=== PATIENT | female | born 1975 | race African-American/Black ===

== ENCOUNTER 2017-09-05 12:06 | Emergency (ER) | payer MEDICARE, MEDICAID ==
[2017-09-05] MEDS ORDERED: Ketorolac Tromethamine 30 MG/ML VIAL ONE (12:59)
[2017-09-05] MEDS ORDERED: diphenhydrAMINE HCl 50 MG/ML 1 ML VIAL ONE (12:59)
[2017-09-05] MEDS ORDERED: methylPREDNISolone Sod Succ/PF 125 MG/2 ML VIAL ONE (13:48)
[2017-09-05] MEDS ORDERED: Magnesium Sulfate 2 GM/100 ML BAG ONE (13:50)
[2017-09-05] MEDS ORDERED: Water For Inject, Bacteriostat 30 ML ONE (13:50)
[2017-09-05] MEDS ORDERED: Acetaminophen 500 MG TAB ONE (16:00)
[2017-09-05] MEDS ORDERED: SODIUM CHLORIDE 0.9% IVPB SCH (16:15)
[2017-09-05] MEDS ORDERED: VALPROATE SODIUM IVPB SCH (16:15)
== END 2017-09-05 18:19 | disposition home or self-care (01) ==
LOC: ERS 12:06
DX: R51 Headache (principal); B20 Human immunodeficiency virus [HIV] disease; F41.9 Anxiety disorder, unspecified; F31.9 Bipolar disorder, unspecified; F17.210 Nicotine dependence, cigarettes, uncomplicated
CPT/HCPCS: 96365; 96367; 96375; J1200; J1885; J2930; J3475; J7050

== ENCOUNTER 2017-09-10 13:33 | Emergency (ER) | payer MEDICAID, MEDICARE ==
[2017-09-10] MEDS ORDERED: Lidocaine 2% Viscous Solution 10 ML, Aluminum & Magnesium Hydroxide 30 ML SSW SCH ×2 (14:30)
[2017-09-10 14:46] LABS: Bilirubin Negative (Negative); Blood, Urine Large (Negative); Glucose, Urine (Dipstick) 250 mg/dL (Negative); Ketone, Urine Trace mg/dL (Negative); Nitrite Negative (Negative); Protein, Urine (Dipstick) Trace mg/dL (Neg-Trace)
[2017-09-10 14:48] LABS: Bacteria/HPF None Seen HPF (None Seen); Hyaline Casts/LPF 0-3 HYALINE CAST LPF (0-3 Hyaline)
[2017-09-10] MEDS ORDERED: Lidocaine Viscous Sol 2% 15 ml UD Cup ONE (14:54)
[2017-09-10] MEDS ORDERED: Mag-Al 1200 mg/1200 mg/30 ML UDCUP ONE (14:54)
[2017-09-10] MEDS ORDERED: Famotidine/PF 20 mg/2ml Vial ONE (14:54)
[2017-09-10 14:58] LABS: #Lymphocytes 1.8 thou/uL (1.20-3.40); #Monocytes 0.3 thou/uL (0.11-0.59); #Neutrophils 2.4 thou/uL (1.40-6.50); %Basophils 0.3 % (0.0-1.0); %Monocytes 6.3 % (0.0-10.0); Hematocrit 38.5 % (36.0-47.0); Mean Platelet Volume 7.2 fL (7.4-10.4); Red Blood Cell (RBC) Count 4.26 mill/uL (4.20-5.40); White Blood Cell (WBC) Count 4.5 thou/uL (4.8-10.8)
[2017-09-10 15:03] LABS: Trichomonas/HPF 1+ HPF (None Seen); Yeast-All Forms None Seen HPF (None Seen)
[2017-09-10 15:22] LABS: ALT (SGPT) 10 U/L (8-55); AST (SGOT) 18 U/L (5-34); Alkaline Phosphatase 72 U/L (40-150); Anion Gap 13 mmol/L (10-20); BUN (Urea Nitrogen) 9 mg/dL (7.0-18.7); Bilirubin, Total 0.3 mg/dL (0.2-1.2); Calc. Creatinine Clearance 0 mL/min (70-130); Calcium 9.3 mg/dL (7.8-10.44); Carbon Dioxide 22 mmol/L (22-29); Chloride 106 mmol/L (98-107); Estimated GFR-MDRD Greater than 90; Globulin 3.4 g/dL (2.4-3.5); Protein, Total 7.4 g/dL (6.0-8.3)
[2017-09-10 15:23] LABS: Troponin I Less than 0.010 ng/mL (< 0.028)
== END 2017-09-10 16:18 | disposition home or self-care (01) ==
LOC: ERS 13:33
DX: N72 Inflammatory disease of cervix uteri (principal); B20 Human immunodeficiency virus [HIV] disease; F41.9 Anxiety disorder, unspecified; F31.9 Bipolar disorder, unspecified; F17.210 Nicotine dependence, cigarettes, uncomplicated
CPT/HCPCS: 80053; 81003; 81015; 82553; 84484; 84702; 85025; 87077; 87086; 87480; 87491; 87510; 87591; 87660; 93005; 96361; 96374; S0028

== ENCOUNTER 2018-01-31 14:23 | Emergency (ER) | payer MEDICARE, MEDICAID ==
[2018-01-31] MEDS ORDERED: Acetaminophen 500 MG TAB ONE (15:59)
[2018-01-31] MEDS ORDERED: Ketorolac Tromethamine 30 MG/ML VIAL ONE (15:59)
[2018-01-31] MEDS ORDERED: diphenhydrAMINE 50 MG/ML VIAL ONE (15:59)
[2018-01-31] MEDS ORDERED: Magnesium Sulfate 2 GM/100 ML BAG ONE (17:23)
[2018-01-31] MEDS ORDERED: Ondansetron HCl/PF 4 MG/2 ML Vial ONE (17:27)
== END 2018-01-31 17:27 | disposition home or self-care (01) ==
LOC: ERS 14:23
DX: R51 Headache (principal); B20 Human immunodeficiency virus [HIV] disease; F41.9 Anxiety disorder, unspecified; F31.9 Bipolar disorder, unspecified; F17.210 Nicotine dependence, cigarettes, uncomplicated; Z79.899 Other long term (current) drug therapy
CPT/HCPCS: 96361; 96365; 96375; J1200; J1885; J2405; J3475

== ENCOUNTER → 2018-05-09 | Day surgery (SDC) | payer MEDICARE, MEDICAID ==
[2018-05-08 09:06] VITALS: BMI 18.8
[~2018-05-09] MED LIST: Dexamethasone 20 MG/5 ML VIAL ONE; Fentanyl 100 MCG/2 ML VIAL ONE; Lidocaine 1% PF 5 ML VIAL ONE; Lidocaine 1% w/Epinephrine 1:100K 30 ML VIAL ONE; Ondansetron HCl/PF 4 MG/2 ML Vial ONE; PROPOFOL 200 MG/20 ML VIAL ONE
--- NOTE | 2018-05-10 09:17 | OP ---
PREOPERATIVE DIAGNOSIS: Multiple inflammatory skin lesions. POSTOPERATIVE DIAGNOSES: Multiple inflammatory facial skin lesions and human immunodeficiency virus disease. PROCEDURES PERFORMED: 1. Excision of mid forehead lesion measuring 3.5 cm with complex closure. 2. Excision of right cheek lesion measuring 3.5 cm with complex closure. 3. Excision of left cheek lesion measuring 4.2 cm with complex closure. PROCEDURE IN DETAIL: Each lesion was delineated in an elliptical fashion along the natural skin crea se with margins to include the lesion. The incisions were made for each lesion with a #15 blad e through the skin and subcutaneous tissues with care not to enter beyond the parotid fascia or the s ubcutaneous region. They were then dissected sharply with bipolars used for hemostasis. We then und ermined the skin inferiorly and superiorly for each lesion and created flaps, which were advanced int o the defect. A 5-0 Monocryl was used to reapproximate the dermis to take tension off the skin and 6 -0 Prolene was used in an interrupted fashion to close the skin. Steri-Strips were then placed over adhesive as the wounds were closed. The patient was awakened, extubated, and taken to recovery room where she remained in stable condition prior to discharge home. Specimens were sent for permanent hi stologic evaluation.
== END ==
LOC: SDC 09:59
PROVIDERS: ATTEND Specialist
PROC: 0HB1XZZ Excision of Face Skin, External Approach (ICD-10-PCS; principal; 2018-05-09)
DX: L72.0 Epidermal cyst (principal); L85.9 Epidermal thickening, unspecified; F17.210 Nicotine dependence, cigarettes, uncomplicated; Z21 Asymptomatic human immunodeficiency virus [HIV] infection status; Z79.899 Other long term (current) drug therapy; Z88.5 Allergy status to narcotic agent; Z88.8 Allergy status to other drugs, medicaments and biological substances
CPT/HCPCS: 85014; 88305; J1100; J2001; J2405; J2704; J3010

== ENCOUNTER 2018-07-04 16:20 | Emergency (ER) | payer MEDICARE, MEDICAID ==
--- NOTE | 2018-07-04 16:53 | RAD ---
RADIOGRAPH CHEST 2 VIEWS: 07/04/18 HISTORY: 42-year-old female with cough and chest congestion. FINDINGS: There is no air space density, pulmonary edema, pleural effusion, pneumothorax, or cardiomegaly. IMPRESSION: No acute cardiopulmonary findings. redd [] POS: FERNANDO
== END 2018-07-04 17:49 | disposition home or self-care (01) ==
LOC: ERS 16:20
DX: J40 Bronchitis, not specified as acute or chronic (principal); B20 Human immunodeficiency virus [HIV] disease; F17.210 Nicotine dependence, cigarettes, uncomplicated; Z79.899 Other long term (current) drug therapy
CPT/HCPCS: 71046

== ENCOUNTER 2019-08-25 19:26 | Inpatient (IN) | payer MEDICARE, MEDICAID ==
[~2019-08-25 19:26] MED LIST changes: -Dexamethasone 20 MG/5 ML VIAL ONE; -Fentanyl 100 MCG/2 ML VIAL ONE; +ISOVUE-370 76%-LOCM 1 ML ONE; -Lidocaine 1% PF 5 ML VIAL ONE; -Lidocaine 1% w/Epinephrine 1:100K 30 ML VIAL ONE; -Ondansetron HCl/PF 4 MG/2 ML Vial ONE; -PROPOFOL 200 MG/20 ML VIAL ONE
[2019-08-25 20:05] LABS: #Lymphocytes 0.9 thou/uL (1.20-3.40); #Monocytes 0.3 thou/uL (0.11-0.59); %Basophils 0.2 % (0.0-1.0); %Eosinophils 0.4 % (0.0-10.0); %Monocytes 6.9 % (0.0-10.0); %Neutrophils 71.6 % (42.0-75.0); Hemoglobin 10.2 g/dL (12.0-16.0); Mean Corpuscular HGB CONC 31.7 g/dL (32.0-36.0); Mean Corpuscular Hemoglobin 21.7 pg (27.0-31.0); Mean Corpuscular Volume 68.3 fL (78.0-98.0); Platelet Count 268 thou/uL (130-400); RBC Distribution Width 16.3 % (11.5-14.5); Red Blood Cell (RBC) Count 4.73 mill/uL (4.20-5.40); White Blood Cell (WBC) Count 4.1 thou/uL (4.8-10.8)
[2019-08-25] MEDS ORDERED: Diazepam 5 MG TAB ONE (20:15)
--- NOTE | 2019-08-25 20:24 | RAD ---
XR Chest 1 View Portable History: Chest pain Comparison: Chest radiograph July 04, 2018 Findings: Mild levoscoliosis lumbar spine. Lungs are without confluent airspace consolidation, pneumo thorax, or effusion. Cardiac silhouette and mediastinal contours are within normal limits. Impression: No acute intrathoracic abnormality.
[2019-08-25 20:27] LABS: Anisocytosis SLIGHT = 6-15 cells (100X) (0-5/hpf); Hypochromia SLIGHT = 6-15 cells (100X) (0-5/hpf); MDiff Complete? YES; Microcytosis SLIGHT = 6-15 cells (100X) (0-5/hpf); Ovalocytes SLIGHT = 2-5 cells (100X) (0-1/hpf); Platelet Morphology Comment Appears Adequate; Polychromasia SLIGHT = 2-3 cells (100X) (0-2/hpf); Tear Drops SLIGHT = 2-5 cells (100X) (0-1/hpf)
[2019-08-25 20:27] LABS: ALT (SGPT) Less than 7 U/L (8-55); AST (SGOT) 13 U/L (5-34); Albumin 3.8 g/dL (3.5-5.0); Alkaline Phosphatase 70 U/L (40-110); Anion Gap 11 mmol/L (10-20); BUN (Urea Nitrogen) 4 mg/dL (7.0-18.7); Bilirubin, Total 0.2 mg/dL (0.2-1.2); Calc. Creatinine Clearance 0 mL/min (70-130); Carbon Dioxide 22 mmol/L (22-29); Chloride 106 mmol/L (98-107); Estimated GFR-MDRD Greater than 90; Globulin 3.7 g/dL (2.4-3.5); Glucose 120 mg/dL (70-105); Potassium 3.3 mmol/L (3.5-5.1); Protein, Total 7.5 g/dL (6.0-8.3); Sodium 136 mmol/L (136-145)
[2019-08-25] MEDS ORDERED: Mag-Al 1200 mg/1200 mg/30 ML UDCUP ONE (20:59)
[2019-08-25] MEDS ORDERED: Lidocaine Viscous Sol 2% 15 ml UD Cup ONE (20:59)
--- NOTE | 2019-08-25 21:08 | CT ---
CT Neck Soft Tissue W Con History: Abscess Comparison: None. Findings: Abnormal peripheral enhancement within the nasopharyngeal tonsils bilaterally with internal hypodensity suggesting bilateral nasopharyngeal abscesses. Both these abscesses measure approximately 7 mm transverse by 1 cm in AP dimension by craniocaudal length of 1.5 cm. Mild soft tis anastacio edema of the vallecula. No retropharyngeal fluid collection. Small volume pericardial fluid. Small reactive cervical lymph nodes. Mild degenerative changes with reversal normal cervical lordosis from C4-C7. Complete absence of teeth. Internal carotid arteries are patent. Impression: Findings of bilateral nasopharyngeal tonsillar abscesses as described with soft tissue sw elling of the pharynx extending to the vallecula.
[2019-08-25] MEDS ORDERED: Meropenem 2 GM in Sodium Chloride 0.9% 100 ML IVPB SCH (22:15)
[2019-08-26] MEDS ORDERED: HYDROcodone/Acetaminophen 5/325 mg Tablet PO PRN (11:00)
[2019-08-26] MEDS ORDERED: Bisacodyl 10 MG SUPP PR PRN (11:00)
[2019-08-26] MEDS ORDERED: Senokot S 8.6-50 MG TAB PO PRN (11:00)
[2019-08-26] MEDS ORDERED: Acetaminophen 325 MG TAB PO PRN (11:00)
[2019-08-26] MEDS ORDERED: Guaifenesin DM 100-10/5 ML UDCUP PO PRN (11:00)
[2019-08-26] MEDS ORDERED: Ondansetron PF 4 MG/2 ML Vial IVP PRN (11:00)
[2019-08-26] MEDS: Dextrose 5 % And 0.9 % NaCl 1,000 ML IV SCH (11:47)
[2019-08-26] MEDS: Vancomycin HCl 1 GM in Premix Bag 1 BAG IVPB SCH (11:48)
--- NOTE | 2019-08-26 11:48 | HP ---
REASON FOR ADMISSION: Peritonsillar abscess bilateral, immunosuppressed state, noncompliant with HIV medications. HISTORY OF PRESENTING ILLNESS: The patient gives history of unable to eat or drink/swallow for the last 1 week. She has also had subjective fever. She also admits to smoking half pack a day. She managed it for a week, but as the trouble got worse, the patient came to emergency room. She is also coughing up green- yellow sputum. The patient admits to not taking any HIV medication for almost a year now. She says she saw Dr. Roth last month and was counseled to start taking medication, but she has not done so far. PAST MEDICAL AND SURGICAL HISTORY: Multiple skin lesions removed from her face and she still has two, one on her chin and one on the lateral aspect of the neck/ jawline. History of HIV for last 20 years or so, tubal ligation, bipolar disorder per prior records, but the patient denies it. Substance use in the past. Noncompliant with HIV medication. CURRENT MEDICATION: None. ALLERGIES: TO KLONOPIN AND REGLAN. PERSONAL HISTORY: Smokes half pack a day. Does not abuse. Denies substance use at present. She lives alone, has 2 children who are grownup. She ambulates by herself. FAMILY HISTORY: Father is alive, has history of diabetes. Mother is . She had unknown cancer. Code status is full. Power of insurance attorney is her father, Mr. Espino, number to reach him is [phone]. REVIEW OF SYSTEMS: CONSTITUTIONAL: Negative for weight loss or gain, ability to conduct usual activities. SKIN: Negative for rash, itching. EYES: Negative for double vision, pain. ENT/MOUTH: Negative for nose bleeding, neck stiffness, pain, tenderness. CARDIOVASCULAR: Negative for palpitations, dyspnea on exertion, orthopnea. RESPIRATORY: Negative for shortness of breath, wheezing, cough, hemoptysis, fever or night sweats. GASTROINTESTINAL: Negative for poor appetite, abdominal pain, heartburn, nausea , vomiting, constipation, or diarrhea. GENITOURINARY: Negative for urgency, frequency, dysuria, nocturia. MUSCULOSKELETAL: Negative for pain, swelling. NEUROLOGIC/PSYCHIATRIC: Negative for anxiety, depression. ALLERGY/IMMUNOLOGIC: Negative for skin rash, bleeding tendency. PHYSICAL EXAMINATION: GENERAL: The patient is a 43-year-old female, who is currently in mild distress from throat pain. VITAL SIGNS: Blood pressure 140/84, pulse 90 per minute, respiratory rate 18 per minute, temperature 99.5 degrees Fahrenheit, saturating 98% on room air. NECK: Supple. No elevated JVD. HEENT: Eyes; extraocular muscles intact. Pupils reacting to light. Oral cavity, mucous membranes are dry that I am unable to see her posterior pharynx. In view of her CT scan revealing peritonsillar abscess, we will avoid depressing her tongue to visualize. There are no teeth in her mouth. CARDIOVASCULAR SYSTEM: S1 and S2 heard, regular rhythm. RESPIRATORY: Air entry 1+ bilateral. Scattered rhonchi plus no rales. ABDOMEN: Soft. Bowel sounds heard. No tenderness, rigidity, or guarding. EXTREMITIES: No peripheral edema or calf tenderness. VASCULAR SYSTEM: Peripheral pulses 1+ bilateral. No ischemic ulcerations or gangrene. CENTRAL NERVOUS SYSTEM: No gross focal deficits noted. The patient is alert, awake, and oriented well. PSYCHIATRIC SYSTEM: The patient's mood is euthymic. No hallucinations or delusions. LABORATORY DATA: White count of 4, H and H of 10 and 32, platelet count 268, MCV 68 with 71% neutrophils. Serum bicarbonate is 22, potassium 3.3, BUN 4, creatinine 0.6, serum glucose 120. Liver enzymes within normal limits. Albumin is 3.8. Lipase is 10. DIAGNOSTIC DATA: Chest x-ray done shows no acute cardiopulmonary abnormality. CT neck soft tissue with contrast done shows findings of bilateral nasopharyngeal tonsillar abscesses with soft tissue swelling of the pharynx extending to the vallecula. CLINICAL IMPRESSION AND PLAN: The patient will be admitted to medical floor for bilateral peritonsillar abscess, immunosuppressed state with patient being noncompliant with HIV. We will place her on meropenem and vancomycin. We will obtain blood and urine cultures. CT chest will also be obtained in view of the patient coughing green yellow sputum. We will obtain CD4 count, HIV viral titers, urine drug screen in view of prior history of cocaine and marijuana abuse. She will be kept n.p.o. Dr. Juan has been consulted from ER. We will await his opinion. She will be kept n.p.o. until ENT clears her. She will be on D5 normal saline at 75 mL per hour. We will await Dr. Roth' opinion to restart her on HIV medications. Per records, the patient was on Tivicay before for HIV. Her overall prognosis is poor in view of noncompliance with medications and immunosuppressed state. Job ID: [id number] [facility]
[2019-08-26 12:11] LABS: Acetaminophen Less than 6.0 mcg/mL (10.0-30.0); Alcohol Less than 10 mg/dL (Less than 10); Iron 42 ug/dL (50-170); Iron 43 ug/dL (50-170); Iron Binding Capacity, Total 386 mcg/dL (265-497); Iron Binding Capacity, Total 388 mcg/dL (265-497); Salicylate Less than 8.0 mg/dL (15.0-30.0)
--- NOTE | 2019-08-26 12:14 | CT ---
CT chest with IV contrast HISTORY: Cough and fever. FINDINGS: Lungs are well-inflated. No focal mass. No pleural fluid or pneumothorax. Lack of contrast limits evaluation of the soft tissues. No bulky mediastinal adenopathy. Within the partially visualized upper abdomen, the mass associated with the left adrenal gland that h as been described on prior studies now measures up to 2.5 cm greatest AP diameter on the axial images and now contains some internal calcifications where they were not present on the prior exams. IMPRESSION: No lung abnormalities are apparent. No evidence of pneumonia. Redemonstration of left adrenal gland mass that has not enlarged significantly since the 01/19/2014 exa m but now contains internal calcification.
[2019-08-26 12:28] LABS: Ferritin 3.71 ng/mL (10-291)
[2019-08-26 12:35] LABS: Amphetamine Not Detected (NotDetected); Barbiturates Screen Not Detected (NotDetected); Benzodiazepine Screen Detected (NotDetected); Cocaine Metabolite Screen Detected (NotDetected); Medtox Reader # READER 4; Methadone Not Detected (NotDetected); Methamphetamine Not Detected (NotDetected); Opiate Screen Not Detected (NotDetected); Phencyclidine (PCP) Not Detected (NotDetected); THC/Cannabinoid Screen Not Detected (NotDetected); Tricyclic Screen Not Detected (NotDetected)
[2019-08-26 12:36] LABS: Medtox Control Line Valid? VALID (VALID); Oxycodone Screen Not Detected (NotDetected)
[2019-08-26 12:37] LABS: Syphilis Antibody Nonreactive (Nonreactive); Syphilis Antibody Index 0.45 S/CO (<1.00 Non-Reactive)
[2019-08-26 12:50] LABS: Hep A IgM AB Non-Reactive (NonReactive); Hep B Surf Ag Non-Reactive S/CO (NonReactive); Hep C IgG Ab Non-Reactive (NonReactive); Hepatitis B Core IgM Abs Non-Reactive (NonReactive)
[2019-08-26 12:56] LABS: Hep C Index 0.16 S/CO (0-0.79)
[2019-08-26 12:58] LABS: HBCM Index 0.09 S/CO (0-0.79)
[2019-08-26 12:59] LABS: HBSAg Index 0.15 S/CO (0-0.99); Hep A IgM S/CO 0.11 S/CO (0-0.79)
[2019-08-26 13:42] VITALS: BMI 16.0
[2019-08-26] MEDS ORDERED: Morphine 2 MG/ML SYRINGE SLOW IVP PRN (13:45)
[2019-08-26] MEDS ORDERED: Meropenem 1 GM in Sodium Chloride 0.9% 100 ML IVPB SCH (14:00)
[2019-08-26] MEDS: MEROPENEM 1 GM/50 ML 1 GM in Premix Bag 1 BAG IVPB SCH ×2 (14:05→21:23)
[2019-08-26] MEDS ORDERED: Iron, Sodium Ferric Gluconate 250 MG in Sodium Chloride 0.9% 100 ML IVPB SCH (16:45)
[2019-08-26] MEDS: Calcium Carbonate + Vit D 1 TAB PO SCH (16:56)
--- NOTE | 2019-08-26 18:23 | CON ---
DATE OF CONSULTATION: 08/26/2019 REASON FOR CONSULTATION: Odynophagia, HIV infection. HISTORY OF PRESENT ILLNESS: A 43-year-old, whom I have seen in the clinic for many years now with erratic adherence to anti-retroviral therapy and some personal psychiatric and social issues. She surprisingly has had few admissions to the hospital despite of her lack of adherence to the treatment. In the hospital, I have seen her previously in 2013 and her CD4 cell count has ranged anywhere from the low 50[address] all [address] way to 350 depending on her compliance with the treatment. In 2013, she had gingivitis, which prevented her from eating. We then gave her Peridex mouthwash and staged her infection again, all the opportunistic infection workup tests were negative including CMV, DNA, PCR, cryptococcus antigen, and histoplasma antigen. Her last CD4 cell count was 69 and viral load 64,000 in June of this year. She now has developed what she describes as difficulty of swallowing because of dysphagia, which is localized to the mid esophageal area and now over the past 5 days, she has also developed upper oropharyngeal pain, which has prevented her from drinking fluids for the past 5 days. Some headaches, mostly frontal. No visual symptoms. No fever. No nasal symptoms. Some neck pain and a little bit of cough, but no sputum production. She has moderate abdominal pain pointed towards the epigastric area. No genitourinary symptoms. A little stool, mostly because she is not eating anything. No joint symptoms. She has those chronic varicose lesions in the chin and right side of the mandibular skin region. PAST MEDICAL HISTORY: Longstanding HIV infection with erratic adherence to anti-retroviral therapy. Surprisingly, few admissions to the hospital despite of that. She has bipolar disorder, frequently becomes homeless and has a history of tubal ligation, and previous biopsy of those varicose lesions indicated varicoid keratosis and joint cell reaction and epidermal squamous hyperplasia without malignancy. Currently, she is awake and alert. She does not appear in acute distress, and the 10-point review of system as above. ALLERGY HISTORY: Reglan and clonazepam. MEDICATIONS: She was supposed to be on, 1. Triumeq. 2. Bactrim prophylaxis, but has not been taking them. FAMILY HISTORY: Noncontributory. SOCIAL HISTORY: Current smoker. Sometimes uses marijuana and cocaine. She is living in an apartment and lives in [place]. She moved into this apartment a few weeks ago. PHYSICAL EXAMINATION: VITAL SIGNS: T-max 98.6, blood pressure 107/72, pulse 84, respirations 14, and O2 saturation 99%. SKIN: With those varicose lesions in the facial area. Shows no lymphadenopathy. HEENT: Ocular movements conjugate. Pupils are 2 mm and reactive. Conjunctivae normal. Oral cavity without any obvious inflammatory changes. She has no [place] teeth remaining in place. NECK: Supple with mild tenderness in the right side of the submandibular region. No thyromegaly. LUNGS: Symmetric. Clear breath sounds. HEART: S1 and S2. Regular rate. No S3 or S4. ABDOMEN: Soft with mild to moderate tenderness in the epigastric periumbilical region. No distention. Bowel sounds are present. No organomegaly noted. No bladder distention. EXTREMITIES: No joint inflammatory activity. No edema. Pulses 1+ in the dorsalis pedis. Plantar responses are flexor. Moves extremities equally. NEUROLOGIC: She is awake, oriented, recognized me. Follows commands. LABORATORY DATA: The white cell count is 4.1, hemoglobin 10.2, MCV 68, platelets 268 with a normal differential. Sodium 136, creatinine 0.64, glucose 120, AST 13, albumin 3.8. Toxic screen was negative. The CT scan of the chest was done on admission with no lung abnormalities, left adrenal gland mass which was not changed from January 2014, and there is a soft tissue neck CT with bilateral nasopharyngeal tonsillar abscesses as described, soft tissue swelling, this is mild. ASSESSMENT: 1. Longstanding human immunodeficiency virus infection with poor adherence to anti-retroviral therapy and persistently low CD4 cell count and detectable viremia. 2. Social problems with homelessness, which is intermittent, psychiatric issues with depression and bipolar disorder. 3. Esophageal dysphagia, which has been present for many weeks now and new onset of oropharyngeal dysphagia with odynophagia, which is new, possibly related to those inflammatory processes in the tonsillar area. DISCUSSION: Differential diagnosis includes pyogenic tonsillar infections versus opportunistic processes including lymphoma or Kaposi sarcoma, which appears to be less likely since on visualization the color of the tonsillar region is normal. The other possibility would be an opportunistic process such as histoplasmosis. The esophageal symptoms are more chronic and will need an EGD to evaluate and make sure she does not have ulcerative esophagitis, herpes simplex, or Ann esophagitis. The endpoint here or goal for this admission will be to resolve the swallowing problem, so she can resume taking her medications and be discharged and able to eat and drink as well. For the time being, we will not be able to start any oral treatment and hopefully will be able to resume them promptly once the problem is identified, particularly along the esophagus. Job ID: [id number]
[2019-08-26] MEDS ORDERED: FLU VACC QS2019-20(6MOS UP)/PF 60 MCG/0.5 ML SYRINGE IM ONE (21:00)
[2019-08-26] MEDS ORDERED: Prevnar 13-Val Conj/PF 0.5 ML SYRINGE IM ONE (21:00)
[2019-08-26] MEDS: Famotidine/PF 20 mg/2ml Vial SLOW IVP SCH (21:23)
[2019-08-26] MEDS: Morphine 2 MG/ML SYRINGE SLOW IVP PRN (21:30)
[2019-08-27] MEDS: Vancomycin HCl 1 GM in Premix Bag 1 BAG IVPB SCH ×2 (00:17→14:00)
--- NOTE | 2019-08-27 01:25 | CON ---
DATE OF CONSULTATION: 08/26/2019 CHIEF COMPLAINT: Trouble swallowing. HISTORY OF PRESENT ILLNESS: Ms. Fernandes has had trouble swallowing over the last several weeks at least with solid foods getting stuck at the lower cervical level. Anything solid, she has trouble with this every meal. For the last week, she has just been taking mashed potatoes and Cream of Wheat. She has lost weight subjectively. She has had no nausea or vomiting or abdominal pain. She has had some underlying constipation, which she attributes to not having been eating solid food. Her last bowel movement was a week ago and prior to that she had a bowel movement about every other day. She has had a long history of HIV, which she has taken medicines for intermittently, but in general has been not compliant with therapy. She has not been on medications recently. PAST MEDICAL HISTORY: HIV, bipolar disorder. PAST SURGICAL HISTORY: Tubal ligation, biopsy of varicoid keratosis FAMILY HISTORY: Negative for GI malignancy. SOCIAL HISTORY: She has been homeless intermittently. She smokes and uses marijuana, cocaine sometimes. No alcohol. ALLERGIES: CLONAZEPAM, METOCLOPRAMIDE. OUTPATIENT MEDICATIONS: None currently. INPATIENT MEDICATIONS: 1. Calcium with vitamin D. 2. Enoxaparin. 3. Famotidine. 4. Ferrous sulfate. 5. Folic acid. 6. Multiple vitamin. 7. Vancomycin IV. 8. Meropenem. LABORATORY DATA: White blood cell count 4.1, hemoglobin 10.2, MCV 68, platelets 268. Iron 43, TIBC 388, ferritin 3.7, B12 of 240, folate 7.7, creatinine 0.64, bilirubin 0.2, AST 13, ALT 7, alkaline phosphatase 70. Cocaine on urine drug screen was positive. IMPRESSION: 1. Dysphagia and odynophagia, primarily to solids at the lower cervical esophageal level versus pharyngeal. She was noted to have pharyngeal abscess by CT scan. She has been evaluated by Dr. Roth for advanced HIV and concern is for fungal esophagitis or viral esophagitis. 2. Iron deficiency anemia. RECOMMENDATIONS: EGD tomorrow. Job ID: [id number]
[2019-08-27] MEDS: Morphine 2 MG/ML SYRINGE SLOW IVP PRN ×4 (03:34→21:26)
[2019-08-27] MEDS: MEROPENEM 1 GM/50 ML 1 GM in Premix Bag 1 BAG IVPB SCH ×3 (05:37→21:25)
--- NOTE | 2019-08-27 08:02 | CON ---
DATE OF CONSULTATION: SUBJECTIVE: Ms. Fernandes was admitted via ER last night for painful swallowing, throat pain and also stomach pain. CT scan showed what appeared to be potential peritonsillar abscesses bilaterally. She is currently n.p.o. awaiting ENT consult and possible GI consult. The patient is overall doing well, though she does state that it is a little bit painful to swallow. She has been having difficulty swallowing for some time now, swallowing even soft foods like bananas. Says that she has not eaten solid food in several days now. The patient is HIV positive, but she is not taking any current medications to treat that. Denies any kind of a fever and is currently on antibiotics IV. OBJECTIVE: GENERAL: The patient is well developed, well nourished. She is in no acute distress. VITAL SIGNS: Currently, her vital signs are stable. HEENT: Upon exam, there was no evidence of trismus. She was able to open mouth fully. No evidence of redness in the tonsillar area or swelling. No signs of thrush or any other type of mouth infection. Flexible exam revealed open nasal passages bilaterally. Eustachian tubes were open bilaterally. There is some thick postnasal drainage present, though she admits that she has had a head cold recently. Examination through the nasopharyngeal region down into the epiglottis and larynx shows some mild swelling that looks more consistent with possible reflux changes. Airway is not obstructed in any way. Vocal cords are moving with both phonation and respiration. There is no evidence of any kind of a tumor or infection in the nasopharyngeal region. ASSESSMENT: 1. Pharyngitis. 2. Possible reflux. PLAN: 1. Continue with present hospital course including the antibiotics. 2. Continue with GI consult if indicated to assess difficulty swallowing further. 3. May follow up with Ear, Nose, and Throat on outpatient basis if needed. Job ID: [id number]
[2019-08-27 08:36] LABS: #Lymphocytes 0.8 thou/uL (1.20-3.40); #Monocytes 0.3 thou/uL (0.11-0.59); #Neutrophils 1.6 thou/uL (1.40-6.50); %Lymphocytes 28.8 % (21.0-51.0); %Neutrophils 59.2 % (42.0-75.0); Hemoglobin 8.3 g/dL (12.0-16.0); Mean Corpuscular HGB CONC 30.9 g/dL (32.0-36.0); Mean Corpuscular Hemoglobin 21.4 pg (27.0-31.0); Mean Corpuscular Volume 69.2 fL (78.0-98.0); Mean Platelet Volume 9.7 fL (7.4-10.4); Platelet Count 231 thou/uL (130-400); Red Blood Cell (RBC) Count 3.88 mill/uL (4.20-5.40); White Blood Cell (WBC) Count 2.7 thou/uL (4.8-10.8)
[2019-08-27 09:05] LABS: Anion Gap 9 mmol/L (10-20); BUN (Urea Nitrogen) 7 mg/dL (7.0-18.7); Calc. Creatinine Clearance 75 mL/min (70-130); Calcium 8.2 mg/dL (7.8-10.44); Carbon Dioxide 21 mmol/L (22-29); Chloride 109 mmol/L (98-107); Estimated GFR-MDRD Greater than 90; Glucose 119 mg/dL (70-105); Potassium 3.3 mmol/L (3.5-5.1); Sodium 136 mmol/L (136-145)
[2019-08-27 09:06] LABS: ALT (SGPT) Less than 7 U/L (8-55); AST (SGOT) 11 U/L (5-34); Albumin 3.1 g/dL (3.5-5.0); Alkaline Phosphatase 56 U/L (40-110); Anion Gap 10 mmol/L (10-20); BUN (Urea Nitrogen) 7 mg/dL (7.0-18.7); Bilirubin, Total Less than 0.2 mg/dL (0.2-1.2); Calc. Creatinine Clearance 77 mL/min (70-130); Calcium 8.1 mg/dL (7.8-10.44); Carbon Dioxide 21 mmol/L (22-29); Chloride 109 mmol/L (98-107); Estimated GFR-MDRD Greater than 90; Globulin 3.2 g/dL (2.4-3.5); Glucose 119 mg/dL (70-105); Potassium 3.4 mmol/L (3.5-5.1); Protein, Total 6.3 g/dL (6.0-8.3); Sodium 137 mmol/L (136-145)
[2019-08-27] MEDS: Iron, Sodium Ferric Gluconate 250 MG in Sodium Chloride 0.9% 100 ML IVPB SCH (09:13)
[2019-08-27] MEDS: Famotidine/PF 20 mg/2ml Vial SLOW IVP SCH (09:15)
[2019-08-27] MEDS: Enoxaparin Sodium 30 MG/0.3 ML SYRINGE SC SCH (09:16)
[2019-08-27] MEDS: Calcium Carbonate + Vit D 1 TAB PO SCH ×2 (09:17→18:13)
[2019-08-27] MEDS: Folic Acid 1 MG TAB PO SCH (09:29)
[2019-08-27] MEDS: Multivit, Therapeutic 1 TAB PO SCH (09:29)
[2019-08-27] MEDS: Ascorbic Acid 500 mg Chewable Tablet PO SCH (09:33)
[2019-08-27] MEDS: Cyanocobalamin (Vitamin B-12) 1,000 MCG TAB PO SCH (09:33)
[2019-08-27] MEDS: Dextrose 5 % And 0.9 % NaCl 1,000 ML IV SCH ×2 (10:10→14:26)
--- NOTE | 2019-08-27 10:34 | PRG ---
DATE OF SERVICE: 08/27/2019 SUBJECTIVE: The patient is seen and examined at the bedside. She is getting ready for her EGD this morning. She complains about some soreness in her throat and abdominal discomfort. OBJECTIVE: VITAL SIGNS: Blood pressure is 111/60, pulse is 83, respiratory rate is 16, O2 saturation is 99, and temperature is 98.3. HEENT: Her head is atraumatic and normocephalic. Eyes are PERRLA. Sclerae nonicteric. Oral mucosa is moist. NECK: Supple. LUNGS: Clear. HEART: S1, S2 normal. No S3. No S4. ABDOMEN: Soft. Mildly tender in the left epigastric area. No guarding. No masses. EXTREMITIES: No clubbing, cyanosis, or edema. NEUROLOGIC: She is alert and oriented x4. There is no any motor deficits. LABORATORY DATA: White count of 2.7, hemoglobin 8.3, hematocrit 26.9, platelet count 231,000. Sodium of 137, potassium 3.4, chloride 109, CO2 of 21, BUN of 7, creatinine of 0.62, glucose 119, total bilirubin less than 0.2. Normal liver function tests. Albumin 3.1. Benzodiazepines on urine drug screen positive and cocaine metabolites positive. IMPRESSION: 1. Bilateral peritonsillar abscesses. 2. Human immunodeficiency virus. 3. Odynophagia and dysphagia. 4. Iron deficiency anemia. 5. Bipolar disorder. 6. Substance user, positive for cocaine. PLAN: We are going to continue her meropenem IV piggyback every 8 hours. The patient was seen by ENT team, and they recommend follow up with ENT on outpatient basis as needed after the discharge from the hospital. Also we are going to continue her vancomycin IV piggyback. We will continue iron daily. She is going to have EGD done by Dr. Gonzalez today for her pain on swallowing. We will continue DVT prophylaxis and pain management. Job ID: [id number]
--- NOTE | 2019-08-27 14:55 | OP ---
DATE OF PROCEDURE: 08/27/2019 PROCEDURES PERFORMED: Esophagogastroduodenoscopy with balloon dilation. PREMEDICATION: Given by Anesthesiology Department. PREPROCEDURE DIAGNOSES: Odynophagia and dysphagia. POSTPROCEDURE DIAGNOSES: 1. 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 2. Whitish plaques and exudates. DESCRIPTION OF PROCEDURE: Written consents obtained prior to procedure. After adequate sedation, forward-viewing endoscope was advanced down the esophagus under direct vision. At approximately 25 cm, the long segment severely stenotic stricture was seen. There was whitish plaque and exudate noted coating the esophagus. Part of this was able to be washed out with irrigation. The scope could not traverse the stricture. A multi-stage 12 mm balloon was then used to dilate the stricture. The stricture dilation was performed with a maximum diameter of 12 mm. Inspection showed a linear rift and tear. The endoscope could not still be traversed further down. The endoscope was then removed. ASSESSMENT: 1. Severely stenotic stricture, status post partial dilation with mucosal tear, unable to advance further down. 2. Whitish plaque and exudates noted in the upper esophagus into the stricture, suspect candidiasis. PLAN: 1. We will obtain Gastrografin esophagram. 2. Keep the patient n.p.o. for now. 3. We will start on fluconazole and pantoprazole. Job ID: [id number]
--- NOTE | 2019-08-27 15:25 | PRG ---
DATE OF SERVICE: 08/27/2019 The patient went for EGD. Vital signs have been normal. The operative report has been reviewed. Dr. Hargrove was the pinking sewing machine operator. There is severely stenotic stricture with partial dilation with mucosal tear, unable to advance further down, whitish plaque and exudate consistent with candidiasis. Gastrografin esophagram will be ordered. The patient will be n.p.o. for now. Fluconazole and pantoprazole have been started by Dr. Hargrove and this was given intravenously. Job ID: [id number]
--- NOTE | 2019-08-27 17:01 | RAD ---
Exam: Barium swallow esophagram HISTORY: Status post esophageal dilatation. Dysphagia. Evaluate for perforation FINDINGS: Initial upright Portable Sawmill Operator chest radiograph demonstrates a normal cardiac silhouette. No evidence of pneum omediastinum. Lungs and pleural spaces are clear The distal cervical and thoracic esophagus have an overall normal course and caliber. No evidence of perforation or aspiration when administered Gastrografin. Postprocedure chest radiograph demonstrates contrast in the stomach. No evidence of contrast outside the expected course of the thoracic esophagus. IMPRESSION: No evidence of perforation. If there is still concern, CT can be performed after administ ration of additional Gastrografin. Transcribed Date/Time: 08/27/2019 5:40 PM
[2019-08-27] MEDS ORDERED: Fluconazole In NaCl,Iso-Osm 200 MG in Premix Bag 1 BAG IVPB SCH (18:00)
--- NOTE | 2019-08-27 18:32 | PRG ---
DATE OF SERVICE: 08/27/2019 This is a followup note since her procedure earlier this morning. Her barium swallow did not show any evidence of leak perforation or extravasation of contrast. In the meantime, she ate can of [place] sausage from home, stating that she was hungry. She denies any issue and reports that it went down easier than before. There is no odynophagia. Since she has left her denture at home and without any issue swallowing at the present time after dilatation, I will start her on mechanical soft diet. IV fluconazole has been ordered for suspected esophageal candidiasis. Job ID: [id number]
[2019-08-27 20:07] LABS: %CD4 (Helper/Inducer) 6.7 % (30.8-58.5); Absolute CD4 47 /uL (359-1519); Lymphocytes/Gated Cell Count 0.7 x10E3/uL (0.7-3.1); Total Lymphocyte 31 % (Not Estab.); WBC Total Count 2.3 x10E3/uL (3.4-10.8)
[2019-08-27 21:01] VITALS: TEMP 98.6
[2019-08-28] MEDS: Vancomycin HCl 1 GM in Premix Bag 1 BAG IVPB SCH (00:05)
[2019-08-28] MEDS: Morphine 2 MG/ML SYRINGE SLOW IVP PRN ×2 (03:37→08:53)
[2019-08-28] MEDS: Dextrose 5 % And 0.9 % NaCl 1,000 ML IV SCH (03:40)
[2019-08-28] MEDS ORDERED: Vancomycin HCl 1 GM in Premix Bag 1 BAG IVPB SCH ×3 (04:00→23:59)
[2019-08-28 05:44] LABS: Vancomycin, Trough 34.5 ug/mL
[2019-08-28] MEDS: MEROPENEM 1 GM/50 ML 1 GM in Premix Bag 1 BAG IVPB SCH ×2 (06:35→13:18)
[2019-08-28 07:42] VITALS: BP 108/64
[2019-08-28] MEDS: Calcium Carbonate + Vit D 1 TAB PO SCH ×2 (08:52→17:04)
[2019-08-28] MEDS: Enoxaparin Sodium 30 MG/0.3 ML SYRINGE SC SCH (08:53)
[2019-08-28] MEDS ORDERED: Fluconazole In NaCl,Iso-Osm 200 MG in Premix Bag 1 BAG IVPB SCH (09:00)
[2019-08-28] MEDS ORDERED: Pantoprazole 40 MG VIAL IVP SCH (09:00)
[2019-08-28] MEDS: Cyanocobalamin (Vitamin B-12) 1,000 MCG TAB PO SCH (09:30)
[2019-08-28] MEDS: Multivit, Therapeutic 1 TAB PO SCH (09:30)
[2019-08-28] MEDS: Ascorbic Acid 500 mg Chewable Tablet PO SCH (09:30)
[2019-08-28] MEDS: Folic Acid 1 MG TAB PO SCH (09:30)
[2019-08-28] MEDS ORDERED: Iron Sucrose Complex 200 MG in Sodium Chloride 0.9% 250 ML 250 ML IVPB SCH ×2 (10:00→12:45)
--- NOTE | 2019-08-28 12:24 | PDOC.HOSPP ---
- Subjective Encounter Date: 08/28/19 Encounter Time: 08:30 Subjective: Patient seen and examined. No new complaints. No overnight events pt is able to swallow but feels some soreness, has epigastric abdominal discomfort - Objective Vital Signs & Weight: Vital Signs (12 hours) Temp Pulse Resp BP Pulse Ox 08/28/19 07:37 98.6 F 85 17 108/64 97 08/28/19 06:43 74 16 100 Weight Admit Weight 93 lb Weight 93 lb I&O: 08/27/19 08/28/19 08/29/19 06:59 06:59 06:59 Intake Total 1890 1210 Balance 1890 1210 Result Diagrams: 08/27/19 08:02 08/27/19 08:02 Hospitalist ROS - Review of Systems Constitutional: reports: weakness. denies: fever, chills, sweats, malaise, other ENT: denies: ear pain, ear discharge, nose pain, nose discharge, nose congestion , mouth pain, mouth swelling, throat pain, throat swelling, other Respiratory: denies: cough, dry, shortness of breath, hemoptysis, SOB with excertion, pleuritic pain, sputum, wheezing, other Cardiovascular: denies: chest pain, palpitations, orthopnea, paroxysmal noc. dyspnea, edema, light headedness, other Gastrointestinal: reports: abdominal pain. denies: nausea, vomiting, diarrhea, constipation, melena, hematochezia, other Genitourinary: denies: dysuria, frequency, incontinence, hematuria, retention, other Musculoskeletal: denies: neck pain, shoulder pain, arm pain, back pain, hand pain, leg pain, foot pain, other Skin: denies: rash, lesions, lyn, bruising, other - Medication Medications: Active Medications Generic Name Dose Route Start Last Admin Trade Name Freq PRN Reason Stop Dose Admin Albuterol/Ipratropium 3 ml 08/26/19 13:00 08/28/19 06:43 Duoneb NEB 3 ml [id number] [facility] Administration Ascorbic Acid 1,000 mg 08/27/19 09:00 08/28/19 09:30 Vitamin C PO Not Given DAILY [facility] Calcium/Vitamin D 1 tab 08/26/19 17:00 08/28/19 08:52 Caltrate 600 + Vit D PO Not Given BID-[facility] Cholecalciferol 1,000 units 08/27/19 09:00 08/28/19 09:30 Vitamin D3 PO Not Given DAILY [facility] Cyanocobalamin 1,000 mcg 08/27/19 09:00 08/28/19 09:30 Vitamin B-12 PO Not Given DAILY [facility] Enoxaparin Sodium 30 mg 08/27/19 09:00 08/28/19 08:53 Lovenox SC 30 mg 0900 NORRIS Administration Ferrous Sulfate 300 mg 08/27/19 09:00 08/28/19 10:35 Ferrous Sulfate PO 300 mg DAILY [facility] Administration Folic Acid 1 mg 08/27/19 09:00 08/28/19 09:30 Folvite PO Not Given DAILY [facility] Meropenem 1 gm/ Device 50 mls @ 200 mls/hr 08/26/19 14:00 08/28/19 06:35 IVPB 50 mls Q8HR NORRIS Administration Fluconazole/Sodium Chloride 100 mls @ 100 mls/hr 08/27/19 18:00 08/27/19 18: 13 200 mg/ Device IVPB 100 mls 1800 NORRIS Administration Vancomycin HCl 1 gm/ Device 200 mls @ 200 mls/hr 08/28/19 04:00 08/28/19 04: 29 IVPB 200 mls 0400,1600 NORRIS Administration Morphine Sulfate 2 mg 08/26/19 13:52 08/28/19 08:53 Morphine SLOW IVP 2 mg Q6H PRN Administration Pain Multivitamins 1 tab 08/27/19 09:00 08/28/19 09:30 Theragran PO Not Given DAILY [facility] Pantoprazole Sodium 40 mg 08/28/19 09:00 08/28/19 08:53 Protonix IVP 40 mg DAILY [facility] Administration Sodium Chloride 10 ml 08/26/19 21:00 08/28/19 09:10 Flush - Normal Saline IVF 10 ml Q12HR [facility]RIS Administration Sodium Chloride 10 ml 08/26/19 11:06 08/26/19 11:51 Flush - Normal Saline IVF 10 ml PRN PRN Administration Saline Flush - Exam General Appearance: NAD, ill appearing Eye: PERRL, anicteric sclera ENT: normocephalic atraumatic, no oropharyngeal lesions Neck: supple, symmetric, no JVD, no thyromegaly Heart: RRR, no murmur, no gallops, no rubs Respiratory: CTAB, no wheezes, no rales, no ronchi Gastrointestinal: soft, non-tender, non-distended, normal bowel sounds, no palpable masses, no hepatomegaly, no guarding, no rigidity Extremities: no cyanosis, no clubbing, no edema Skin: normal turgor, no lesions, no rashes Neurological: cranial nerve grossly intact, no focal deficits Musculoskeletal: normal tone, normal strength, generalized weakness, diffuse muscle atrophy Psychiatric: normal affect, normal behavior Hosp A/P (1) Dysphagia Code(s): R13.10 - DYSPHAGIA, UNSPECIFIED Status: Acute (2) Ann esophagitis Code(s): B37.81 - CANDIDAL ESOPHAGITIS Status: Acute (3) Protein-calorie malnutrition, severe Code(s): E43 - UNSPECIFIED SEVERE PROTEIN-CALORIE MALNUTRITION Status: Chronic (4) Tonsil, abscess Code(s): J36 - PERITONSILLAR ABSCESS Status: Acute (5) HIV (human immunodeficiency virus infection) Code(s): B20 - HUMAN IMMUNODEFICIENCY VIRUS [HIV] DISEASE Status: Chronic Qualifiers: HIV symptom status: symptomatic Qualified Code(s): B20 - Human immunodeficiency virus [HIV] disease (6) Hypokalemia Code(s): E87.6 - HYPOKALEMIA Status: Acute (7) Iron deficiency anemia Code(s): D50.9 - IRON DEFICIENCY ANEMIA, UNSPECIFIED Status: Chronic Qualifiers: Iron deficiency anemia type: inadequate dietary iron intake Qualified Code( s): D50.8 - Other iron deficiency anemias - Plan old records reviewed/req, continue antibiotics 08/28/19- continue meropenam and vancomycin for now, ID following, will defer antibiotic to ID, continue diflucan for ann, she will need prophylacitc antibiotic for HIV given low cd4 count including PCP and MAC prophylaxis, will repeat labs tomorrow, medication reviewed as above, symptomatic treatment, give IV iron one time today
[2019-08-28] MEDS: Iron, Sodium Ferric Gluconate 250 MG in Sodium Chloride 0.9% 100 ML IVPB SCH (12:45)
[2019-08-28] MEDS: Iron, Sodium Ferric Gluconate 250 MG in Sodium Chloride 0.9% 250 ML 250 ML IVPB SCH ×2 (12:46→13:22)
[2019-08-28 15:29] LABS: Vancomycin, Trough 6.3 ug/mL
--- NOTE | 2019-08-28 16:13 | PRG ---
DATE OF SERVICE: 08/28/2019 Mrs. Fernandes has no issue overnight. She is tolerating soft mechanical diet even without dentures. I suspect she may have concurrent esophageal candidiasis in addition to a very stenotic upper esophageal stricture that was dilated with a 12 mm balloon yesterday. While there was a mucosal tear, her barium swallow was normal without any evidence of complication or perforation. At this point, I would continue to treat her empirically for esophageal candidiasis with fluconazole. She would benefit from a followup EGD in 2 months to reassess the stricture and for any further dilatation if needed. This was conveyed to the patient. Job ID: [id number]
[2019-08-28 17:09] LABS: LOG10 HIV-1 RNA 4.524 (.)
--- NOTE | 2019-08-28 17:13 | PRG ---
DATE OF SERVICE: 08/28/2019 SUBJECTIVE: The patient had an EGD, which showed esophageal candidiasis and an area of stricture in the lower esophagus. The area of stricture was dilated somewhat, but there was some laceration of the mucosal surface and the procedure had to be discontinued then. She is swallowing better, but does not want to take her HIV medications and otherwise she is starting to eat. No headaches. No diarrhea. No respiratory symptoms. OBJECTIVE: VITAL SIGNS: Temperature has been normal. BP 108/64, pulse 85, respirations 17, O2 saturation 97. HEENT: Oral cavity is normal. NECK: Supple. LUNGS: Symmetric, clear breath sounds. HEART: S1 and S2, regular rate. ABDOMEN: Soft. Not distended or tender. No ascites. No bladder distention. LABORATORY DATA: White cell count 2.7, hemoglobin 8.3, platelets 231. CD4 cell count 47. Hepatitis C nonreactive. ASSESSMENT AND DISCUSSION: Advanced human immunodeficiency virus infection, depression, bipolar disorder, erratic adherence to anti-retroviral therapy with progression of immunosuppression, esophageal stricture, esophageal candidiasis. I am not sure that the pharyngeal process is as significant as read in the Radiology report, but we will continue with the antimicrobial for the time being, but we will switch her to Augmentin suspension. She is not willing to take her anti-retroviral medication. At this point in time, I explained to her that this would necessarily lead to clinical deterioration and potentially even , but she accepts that. Job ID: [id number]
[2019-08-28] MEDS ORDERED: Amoxicillin/Potassium Clav 600 mg/5 ml Oral Suspension PO SCH (21:00)
--- NOTE | 2019-08-29 11:07 | DIS ---
DATE OF ADMISSION: 08/25/2019 DATE OF DISCHARGE: 08/28/2019 PRIMARY CARE PHYSICIAN: [facility] Call Admission. DISCHARGE DISPOSITION: Left against medical advice. PRIMARY DISCHARGE DIAGNOSES: 1. Ann esophagitis. 2. Dysphagia due to problem #1. 3. Hypokalemia. 4. Bilateral peritonsillar abscess. 5. Advanced human immunodeficiency virus infection. SECONDARY DISCHARGE DIAGNOSES: 1. Iron deficiency anemia. 2. Protein calorie malnutrition. 3. Severe acquired immunodeficiency syndrome. 4. Noncompliance with the treatment. PRIMARY PROCEDURE/OPERATION: Upper endoscopy was performed by Dr. Hargrove. RADIOLOGICAL INVESTIGATION: Chest x-ray was unremarkable. Soft tissue, neck CT scan showed bilateral peritonsillar abscess. CT chest was not negative. Barium swallow with x-ray was unremarkable. SIGNIFICANT LABORATORY DATA: WBC 2.7, hemoglobin 8.3, and platelets are 231. Sodium 137 and creatinine 0.62. Folic acid and B12 normal. Ferritin 3.71. Urine drug screen positive for benzo and cocaine. Serum drug screen negative. CD4 count 47. Hepatitis profile, negative. Syphilis negative. Blood culture negative. Urine culture negative. Urine serum crypto negative. DISCHARGE MEDICATIONS: The patient left hospital against medical advice. CONTRAINDICATION: None. CODE STATUS: Full code. INPATIENT ROPEWALK ROPE MAKER: Dr. Roth was following while in hospital. Dr. Hargrove was consulted for dysphagia. ENT physician was following for peritonsillar abscess. TEST RESULTS PENDING ON DISCHARGE: None. ALLERGIES: CLONAZEPAM AND REGLAN. DISCHARGE PLAN: The patient will follow up with primary care physician. HOSPITAL COURSE: A 44-year-old female with above-mentioned medical problem, who was admitted by Dr. Albrecht. Please see his H and P for further details. The patient presented to emergency room with dysphagia. In the emergency room, the patient had a chest x-ray, which was unremarkable. CT soft tissue neck showed peritonsillar abscess, as the patient was complaining of dysphagia, that is why Gastroenterology was consulted and the patient underwent upper endoscopy and the patient was found with severely stenotic stricture, which was dilated and there was slight mucosal tear. Subsequently, the patient had a Gastrografin esophagogram, which was unremarkable and diet was started. The patient was found with Ann esophagitis and fluconazole was started. Regarding peritonsillar abscess, ENT doctor was following and regarding her advanced HIV with low CD4 count, Dr. Roth was following. The patient was treated with broad-spectrum antibiotic therapy with meropenem and vancomycin. The patient was given iron infusion. She was given Diflucan for Ann esophagitis. The patient did not stay in the hospital and she left against medical advice. She was requiring prophylactic treatment for HIV. The patient was instructed to stay in hospital, but she did not stay despite risk of . Job ID: [id number]
== END 2019-08-28 18:14 | disposition left against medical advice (07) | DRG 974 ==
LOC: ERS 19:26 → T4-A 23:06
PROVIDERS: ADMIT Hospitalist; ATTEND Hospitalist
PROC: 0D758ZZ Dilation of Esophagus, Via Natural or Artificial Opening Endoscopic (ICD-10-PCS; principal; 2019-08-27)
DX: B20 Human immunodeficiency virus [HIV] disease (principal); E43 Unspecified severe protein-calorie malnutrition; B37.81 Candidal esophagitis; J36 Peritonsillar abscess; Z68.1 Body mass index [BMI] 19.9 or less, adult; R13.10 Dysphagia, unspecified; F14.10 Cocaine abuse, uncomplicated; F17.210 Nicotine dependence, cigarettes, uncomplicated; E87.6 Hypokalemia; D50.9 Iron deficiency anemia, unspecified; F31.9 Bipolar disorder, unspecified; Z91.14 Patient's other noncompliance with medication regimen; Z98.51 Tubal ligation status
CPT/HCPCS: 36415; 70491; 71045; 71250; 74220; 80048; 80053; 80074; 80202; 80306; 80307; 82607; 82728; 82746; 83540; 83550; 83690; 85025; 85048; 86361; 86780; 87040; 87086; 87385; 87536; 87899; 94640; 96365; C9113; J1450; J1650; J2185; J2270; J2916; J3370; J3490; J7050; J7620; Q9966; S0028

== ENCOUNTER 2019-09-05 09:09 | Inpatient (IN) | payer MEDICARE, MEDICAID ==
[2019-09-05] MEDS ORDERED: Acetaminophen 500 MG TAB ONE (09:46)
[2019-09-05] MEDS ORDERED: Fluconazole In NaCl,Iso-Osm 800 MG in Admixture Fee 1 EACH IVPB SCH (10:30)
--- NOTE | 2019-09-05 10:47 | RAD ---
PA AND LATERAL VIEWS CHEST: Date: 09/05/19 HISTORY: Congestion. Headache. FINDINGS: Comparison made with exam of 07/04/18. The heart size is normal. The lungs are expanded without focal areas of consolidation, pneumothoraces , or pleural effusions. No acute osseous abnormalities are seen. IMPRESSION: No acute process. POS: [facility]
[2019-09-05 10:56] LABS: #Lymphocytes 1.1 thou/uL (1.20-3.40); #Monocytes 0.3 thou/uL (0.11-0.59); #Neutrophils 6.4 thou/uL (1.40-6.50); %Basophils 0.3 % (0.0-1.0); %Lymphocytes 14.1 % (21.0-51.0); %Monocytes 4.1 % (0.0-10.0); %Neutrophils 81.4 % (42.0-75.0); Hemoglobin 10.1 g/dL (12.0-16.0); Mean Corpuscular HGB CONC 32.7 g/dL (32.0-36.0); Mean Corpuscular Hemoglobin 23.1 pg (27.0-31.0); Mean Corpuscular Volume 70.6 fL (78.0-98.0); Mean Platelet Volume 10.3 fL (7.4-10.4); Platelet Count 278 thou/uL (130-400); RBC Distribution Width 21.8 % (11.5-14.5); Red Blood Cell (RBC) Count 4.39 mill/uL (4.20-5.40); White Blood Cell (WBC) Count 7.8 thou/uL (4.8-10.8)
[2019-09-05 11:02] LABS: Bacteria/HPF None Seen HPF (None Seen); Bilirubin Negative (Negative); Blood, Urine Negative (Negative); Clarity Clear (Clear); Glucose, Urine (Dipstick) Normal (Negative); Leukocyte 250 Leu/uL (Negative); Mucous/LPF Rare LPF (<2+); Nitrite Negative (Negative); Protein, Urine (Dipstick) Negative (Neg-Trace)
[2019-09-05 11:20] LABS: ALT (SGPT) 8 U/L (8-55); AST (SGOT) 23 U/L (5-34); Albumin 3.9 g/dL (3.5-5.0); Alkaline Phosphatase 66 U/L (40-110); Anion Gap 15 mmol/L (10-20); BUN (Urea Nitrogen) 7 mg/dL (7.0-18.7); Bilirubin, Total 0.4 mg/dL (0.2-1.2); Calc. Creatinine Clearance 0 mL/min (70-130); Calcium 9.5 mg/dL (7.8-10.44); Carbon Dioxide 24 mmol/L (22-29); Chloride 100 mmol/L (98-107); Estimated GFR-MDRD Greater than 90; Globulin 4.1 g/dL (2.4-3.5); Glucose 83 mg/dL (70-105); Potassium 4.2 mmol/L (3.5-5.1); Sodium 135 mmol/L (136-145)
[2019-09-05] MEDS ORDERED: HYDROcodone/Acetaminophen 5/325 mg Tablet PO PRN ×2 (14:31)
[2019-09-05] MEDS ORDERED: Acetaminophen 325 MG TAB PO PRN (14:31)
[2019-09-05] MEDS ORDERED: Ondansetron PF 4 MG/2 ML Vial IVP PRN (14:31)
[2019-09-05] MEDS ORDERED: Sodium Chloride 0.9% 1,000 ML IV SCH (14:31)
[2019-09-05] MEDS ORDERED: Ondansetron ODT 4 MG TAB SL PRN (14:31)
[2019-09-05 14:36] VITALS: BMI 15.5
--- NOTE | 2019-09-05 18:24 | HP ---
PRIMARY CARE PHYSICIAN: [facility]. CHIEF COMPLAINT: Fever, chills, sore throat, and body aches. HISTORY OF PRESENT ILLNESS: Ms. Fernandes is a 44-year-old female with a past medical history of HIV/AIDS, iron-deficiency anemia, protein-calorie malnutrition, and Ann esophagitis, who was recently admitted in the hospital last week due to dysphagia, hypokalemia, bilateral peritonsillar abscess and Ann esophagitis , she was treated with various antibiotics and antifungals, she was seen by Dr. Roth, ENT. She underwent an EGD for dilation and during that hospital stay, the patient left AMA. However, over the last few days, symptoms started to worsen and she had felt fever, chills, body aches, worsening sore throat, cough and shortness of breath; therefore, she had returned to the hospital today. She was found with an elevated lactic acid of 3.0. Dr. Roth was consulted and had recommended the treatment with IV fluconazole for the suspicion of Ann in her esophagus. She was given a dose of this in the ED and was started on IV fluid hydration. She had otherwise denied any headache, blurred vision, dizziness, any chest pain, palpitations, abdominal pain, or change in her stool. She has a history of HIV/ AIDS with a recent CD4 count of 46 found during last hospital stay; however, the patient refuses to take her home HIV medications. REVIEW OF SYSTEMS: All other systems reviewed and found to be negative unless mentioned in HPI. PAST MEDICAL HISTORY: HIV/AIDS, bilateral peritonsillar abscess, iron- deficiency anemia, protein-calorie malnutrition, severe acquired immunodeficiency syndrome. PAST SURGICAL HISTORY: Tubal ligation and chin surgery. PSYCHIATRIC HISTORY: Anxiety, bipolar disorder, depression with a previous inpatient psychiatric admissions in 2014. SOCIAL HISTORY: She currently smokes roughly 1 to 5 cigarettes a day. She is a former cocaine user, but quit in 2013. She denies alcohol or any further illicit drug use. KNOWN ALLERGIES: Klonopin and Reglan. CURRENT HOME MEDICATIONS: 1. Alprazolam 2 mg b.i.d. 2. Hydrocodone/acetaminophen 10/325 mg t.i.d. 3. Zyprexa 10 mg daily. PHYSICAL EXAMINATION: VITAL SIGNS: Blood pressure 109/60, pulse 75, respirations 16, temperature 97.9 , and O2 saturation 99% on room air. GENERAL: The patient is awake, alert, oriented x3. She is currently lying comfortably in bed. She appears to be severely cachectic and quite malnourished. HEENT: Atraumatic, normocephalic. Pupils are round and reactive to light. Extraocular muscles intact. Moist mucous membranes noted. She appears to have some chin lesions noted and poor oral hygiene. NECK: Soft and supple. Trachea midline. CARDIOVASCULAR: Positive S1 and S2. Regular rate and rhythm. No murmur auscultated. RESPIRATORY: Clear to auscultation bilaterally. No wheezes, rales, or rhonchi. ABDOMEN: Soft and nontender. Bowel sounds present. MUSCULOSKELETAL: Strength 5+ bilaterally in upper and lower extremities. Moves all extremities equal. No edema noted. NEUROLOGIC: Cranial nerves 2 through 12 grossly intact. No focal deficits noted. Speech intact and normal. Gait not assessed. SKIN: Warm, dry, and intact. PSYCHIATRIC: Good mood and affect. LABORATORY DATA: WBC 7.8, RBC 4.39, hemoglobin 10.1, hematocrit 31.0, platelets 278. Sodium 135, potassium 4.2, anion gap 15, BUN 7, creatinine 0.63, estimated GFR greater than 90, glucose 83, lactic acid 3.0 and 1.0, calcium 9.5, AST 23, ALT 8 , alkaline phosphatase 66. Urinalysis shows 7 to 10 squamous epithelial cells, 10 to 20 wbc's, 4 to 6 rbc's, 250 leukocyte esterase, 2.0 urobilinogen, otherwise unremarkable. DIAGNOSTIC IMAGING: PA and lateral chest x-ray revealed no acute process. ASSESSMENT/PLAN: 1. Esophageal candidiasis, the patient will be treated with IV fluconazole. Dr. Roth is also consulted at this time. 2. History of human immunodeficiency virus/acquired immunodeficiency syndrome. Her last CD4 count was found to be 46 during the last admission. She is currently refusing to take her home HIV medications. 3. Protein malnutrition. 4. Elevated lactic acid, her lactic acid came back elevated at 3.0 initially; however, after IV fluids and IV fluconazole, the repeat lactic acid improved to 1.0. 5. Deep venous thrombosis and gastrointestinal prophylaxis. 6. Code status is full code. DISPOSITION: Pending further workup and clinical findings. Job ID: [id number] [facility]
[2019-09-05] MEDS: ALPRAZolam 1 MG TAB PO SCH (20:52)
[2019-09-05] MEDS: HYDROcodone/Acetaminophen 10/325 mg Tablet PO SCH (20:52)
[2019-09-05] MEDS ORDERED: Morphine 2 MG/ML SYRINGE SLOW IVP PRN (21:22)
[2019-09-06 06:01] LABS: #Lymphocytes 0.9 thou/uL (1.20-3.40); #Monocytes 0.3 thou/uL (0.11-0.59); #Neutrophils 1.4 thou/uL (1.40-6.50); %Basophils 0.3 % (0.0-1.0); %Lymphocytes 35.4 % (21.0-51.0); %Monocytes 11.1 % (0.0-10.0); %Neutrophils 52.2 % (42.0-75.0); Hemoglobin 8.5 g/dL (12.0-16.0); Mean Corpuscular HGB CONC 32.2 g/dL (32.0-36.0); Mean Corpuscular Hemoglobin 23.4 pg (27.0-31.0); Mean Corpuscular Volume 72.5 fL (78.0-98.0); Mean Platelet Volume 9.8 fL (7.4-10.4); Platelet Count 199 thou/uL (130-400); RBC Distribution Width 21.8 % (11.5-14.5); Red Blood Cell (RBC) Count 3.62 mill/uL (4.20-5.40); White Blood Cell (WBC) Count 2.6 thou/uL (4.8-10.8)
[2019-09-06] MEDS ORDERED: Sodium Chloride 0.9% 1,000 ML IV SCH (06:15)
[2019-09-06 06:24] LABS: Anion Gap 9 mmol/L (10-20); BUN (Urea Nitrogen) 6 mg/dL (7.0-18.7); Calc. Creatinine Clearance 85 mL/min (70-130); Calcium 8.3 mg/dL (7.8-10.44); Carbon Dioxide 23 mmol/L (22-29); Chloride 109 mmol/L (98-107); Estimated GFR-MDRD Greater than 90; Glucose 90 mg/dL (70-105); Potassium 3.7 mmol/L (3.5-5.1); Sodium 137 mmol/L (136-145)
[2019-09-06] MEDS: ALPRAZolam 1 MG TAB PO SCH ×2 (08:21→20:14)
[2019-09-06] MEDS: OLANZapine 5 MG TAB PO SCH (08:21)
[2019-09-06] MEDS: HYDROcodone/Acetaminophen 10/325 mg Tablet PO SCH ×3 (08:22→20:17)
--- NOTE | 2019-09-06 12:58 | PDOC.HOSPP ---
- Subjective Encounter Date: 09/06/19 Encounter Time: 09:30 Subjective: no sob or cough feels better - Objective Vital Signs & Weight: Vital Signs (12 hours) Temp Pulse Resp BP Pulse Ox 09/06/19 11:54 98.3 F 67 16 123/96 H 100 09/06/19 08:00 96 09/06/19 07:33 98.3 F 60 18 111/74 96 09/06/19 04:00 97.6 F 99 16 103/64 99 Weight Admit Weight 90 lb 3.2 oz Weight 90 lb 3.2 oz I&O: 09/05/19 09/06/19 09/07/19 06:59 06:59 06:59 Intake Total 1960 240 Balance 1960 240 Result Diagrams: 09/06/19 05:00 09/06/19 05:00 Hospitalist ROS - Medication Medications: Active Medications Generic Name Dose Route Start Last Admin Trade Name Freq PRN Reason Stop Dose Admin Hydrocodone Bitart/Acetaminophen 1 tab 09/05/19 21:00 09/06/19 08:22 [place] 10/325 PO 1 tab TID NORRIS Administration Alprazolam 2 mg 09/05/19 21:00 09/06/19 08:21 Xanax PO 2 mg BID NORRIS Administration Sodium Chloride 1,000 mls @ 75 mls/hr 09/06/19 06:15 09/06/19 06:27 Normal Saline 0.9% IV 09/06/19 19:34 1,000 mls .[id number] NORRIS Administration Olanzapine 10 mg 09/06/19 09:00 09/06/19 08:21 Zyprexa PO 10 mg DAILY [facility]IS Administration - Exam General Appearance: NAD, awake alert Eye: PERRL, anicteric sclera ENT: no oropharyngeal lesions, moist mucosa Neck: supple, no JVD Heart: RRR, no murmur Respiratory: no wheezes, no rales Gastrointestinal: soft, non-tender, non-distended, normal bowel sounds Extremities: no cyanosis, no edema Neurological: cranial nerve grossly intact, no focal deficits Psychiatric: A&O x 3 Hosp A/P (1) Ann esophagitis Code(s): B37.81 - CANDIDAL ESOPHAGITIS Status: Acute (2) HIV (human immunodeficiency virus infection) Code(s): B20 - HUMAN IMMUNODEFICIENCY VIRUS [HIV] DISEASE Status: Chronic Qualifiers: HIV symptom status: symptomatic (3) Bipolar disorder Code(s): F31.9 - BIPOLAR DISORDER, UNSPECIFIED Status: Chronic Qualifiers: Active/Remission status: remission status unspecified Qualified Code(s): F31.9 - Bipolar disorder, unspecified (4) Tobacco abuse Code(s): Z72.0 - TOBACCO USE Status: Chronic (5) Iron deficiency anemia Code(s): D50.9 - IRON DEFICIENCY ANEMIA, UNSPECIFIED Status: Chronic Qualifiers: (6) Protein-calorie malnutrition, severe Code(s): E43 - UNSPECIFIED SEVERE PROTEIN-CALORIE MALNUTRITION Status: Chronic - Plan hemostable got one high dose fluconazole iv yesterday await ID advice she agrees to take liq forms of HIV meds if they are available, is also awaiting insurance approval for monthly shots per patient prognosis guarded/poor if she is noncompliant to amb as tolerated
--- NOTE | 2019-09-06 18:59 | PRG ---
DATE OF SERVICE: 09/06/2019 SUBJECTIVE: Ms. Fernandes has been readmitted after signing out against medical advice. This actually looks better than the last time I saw her. She is swallowing better. She is still having a little difficulty with pills, but is able to eat. No headaches. No shortness of breath. No abdominal pain. No diarrhea. PHYSICAL EXAMINATION: VITAL SIGNS: Her vital signs are normal. GENERAL: Awake, alert, oriented. HEENT: Oral cavity normal. LUNGS: Clear to auscultation and percussion. HEART: S1 and S2, regular rate. ABDOMEN: Soft, not distended or tender. No ascites. No bladder distention. EXTREMITIES: No joint inflammatory activity. NEUROLOGIC: Nonfocal. LABORATORY STUDIES: White cell count 7.8 and now 2.6, hemoglobin 10 and 8.5, platelets 199, 81% neutrophils, now 52%. Sodium 137, creatinine 0.54. Liver profile normal. Influenza A and B were negative. Blood cultures, no growth. Recent lab work with a nonreactive syphilis test. Histoplasma antigen was positive, but less than 0.5 ng/mL. Histoplasma galactomannan antigen was 3.49 ng. HIV RNA PCR 33,000. DIAGNOSTIC STUDIES: Chest x-ray with no acute process. Recent barium swallow with no perforation. CT of chest with no abnormalities. ASSESSMENT: 1. Longstanding human immunodeficiency virus infection with advanced immunosuppression due to poor adherence to anti-retroviral therapy associated with multiple personal issues including depression, homelessness intermittently, poverty, and so on. 2. Dysphagia associated with esophageal candidiasis and area of stricture. 3. Tonsillar process, which is not clear at this point. In view of the positive histoplasma antigen, the possibility of disseminated histoplasmosis needed to be considered, and she may also have histoplasmosis in the esophageal area. DISCUSSION: We will start itraconazole for Histoplasmosis. Continue anti- retroviral therapy as previously. Should be able to be discharged soon on Triumeq, Bactrim, prophylaxis, and oral itraconazole. Job ID: [id number] [facility]
[2019-09-06] MEDS: Lopinavir/Ritonavir 80 MG/20 MG per ML Oral Solution PO SCH (20:12)
[2019-09-07] MEDS: ALPRAZolam 1 MG TAB PO SCH ×2 (11:59→20:50)
[2019-09-07] MEDS: HYDROcodone/Acetaminophen 10/325 mg Tablet PO SCH ×3 (12:01→20:50)
[2019-09-07] MEDS: OLANZapine 5 MG TAB PO SCH (12:02)
--- NOTE | 2019-09-07 13:22 | PDOC.HOSPP ---
- Subjective Encounter Date: 09/07/19 Encounter Time: 08:45 Subjective: feels better, tolerating oral diet (not meat but others go down well) - Objective Vital Signs & Weight: Vital Signs (12 hours) Temp Pulse Resp BP Pulse Ox 09/07/19 11:33 98.4 F 68 16 111/74 99 09/07/19 08:00 98 09/07/19 07:50 98.1 F 66 16 113/74 98 Weight Admit Weight 90 lb 3.2 oz Weight 90 lb 3.2 oz I&O: 09/06/19 09/07/19 09/08/19 06:59 06:59 06:59 Intake Total 1960 480 Balance 1960 480 Result Diagrams: 09/06/19 05:00 09/06/19 05:00 Hospitalist ROS - Medication Medications: Active Medications Generic Name Dose Route Start Last Admin Trade Name Freq PRN Reason Stop Dose Admin Hydrocodone Bitart/Acetaminophen 1 tab 09/05/19 21:00 09/07/19 12:01 [place] 10/325 PO Not Given TID NORRIS Alprazolam 2 mg 09/05/19 21:00 09/07/19 11:59 Xanax PO 2 mg BID NORRIS Administration Lamivudine 150 mg 09/06/19 21:00 09/07/19 11:59 Epivir Oral Solution PO 150 mg BID NORRIS Administration Lopinavir/Ritonavir 200 mg 09/06/19 21:00 09/06/19 20:12 Kaletra PO 200 mg BID NORRIS Administration Olanzapine 10 mg 09/06/19 09:00 09/07/19 12:02 Zyprexa PO Not Given DAILY NORRIS - Exam General Appearance: awake alert, ill appearing Eye: PERRL, anicteric sclera ENT: no oropharyngeal lesions, moist mucosa Neck: supple, no JVD Heart: RRR, no murmur Respiratory: no wheezes, no rales Gastrointestinal: soft, non-tender, non-distended, normal bowel sounds Extremities: no cyanosis, no edema Neurological: cranial nerve grossly intact, no focal deficits Psychiatric: normal affect, A&O x 3 Hosp A/P (1) Ann esophagitis Code(s): B37.81 - CANDIDAL ESOPHAGITIS Status: Acute (2) HIV (human immunodeficiency virus infection) Code(s): B20 - HUMAN IMMUNODEFICIENCY VIRUS [HIV] DISEASE Status: Chronic Qualifiers: HIV symptom status: symptomatic (3) Bipolar disorder Code(s): F31.9 - BIPOLAR DISORDER, UNSPECIFIED Status: Chronic Qualifiers: Active/Remission status: remission status unspecified Qualified Code(s): F31.9 - Bipolar disorder, unspecified (4) Tobacco abuse Code(s): Z72.0 - TOBACCO USE Status: Chronic (5) Iron deficiency anemia Code(s): D50.9 - IRON DEFICIENCY ANEMIA, UNSPECIFIED Status: Chronic Qualifiers: (6) Protein-calorie malnutrition, severe Code(s): E43 - UNSPECIFIED SEVERE PROTEIN-CALORIE MALNUTRITION Status: Chronic - Plan hemostable got one high dose fluconazole iv in ER, now on amphotericin B iv daily on kaletra and lamivudine, zyprexa for bipolar prognosis guarded/poor if she is noncompliant to amb as tolerated
[2019-09-07] MEDS: Admixture Fee 1 EACH in Dextrose 5% in Water 10 ML IVPB SCH ×2 (13:53→15:25)
[2019-09-07] MEDS: WATER IVPB SCH (13:54)
[2019-09-07] MEDS: AMBISOME IVPB SCH (13:54)
[2019-09-07] MEDS: DEXTROSE 5% IVPB SCH (13:54)
[2019-09-07] MEDS: Lopinavir/Ritonavir 80 MG/20 MG per ML Oral Solution PO SCH ×2 (15:24→20:50)
[2019-09-08 06:04] LABS: #Monocytes 0.3 thou/uL (0.11-0.59); #Neutrophils 1.9 thou/uL (1.40-6.50); %Basophils 0.7 % (0.0-1.0); %Lymphocytes 31.5 % (21.0-51.0); %Monocytes 8.9 % (0.0-10.0); Mean Corpuscular HGB CONC 32.1 g/dL (32.0-36.0); Mean Corpuscular Hemoglobin 23.5 pg (27.0-31.0); Mean Corpuscular Volume 73.2 fL (78.0-98.0); Platelet Count 245 thou/uL (130-400); RBC Distribution Width 22.1 % (11.5-14.5); Red Blood Cell (RBC) Count 4.25 mill/uL (4.20-5.40); White Blood Cell (WBC) Count 3.3 thou/uL (4.8-10.8)
[2019-09-08 06:31] LABS: ALT (SGPT) Less than 7 U/L (8-55); AST (SGOT) 12 U/L (5-34); Albumin 3.1 g/dL (3.5-5.0); Alkaline Phosphatase 63 U/L (40-110); Anion Gap 8 mmol/L (10-20); BUN (Urea Nitrogen) 10 mg/dL (7.0-18.7); Bilirubin, Total Less than 0.2 mg/dL (0.2-1.2); Calc. Creatinine Clearance 79 mL/min (70-130); Calcium 8.7 mg/dL (7.8-10.44); Carbon Dioxide 26 mmol/L (22-29); Chloride 106 mmol/L (98-107); Estimated GFR-MDRD Greater than 90; Glucose 84 mg/dL (70-105); Potassium 3.2 mmol/L (3.5-5.1); Protein, Total 6.1 g/dL (6.0-8.3); Sodium 137 mmol/L (136-145)
[2019-09-08] MEDS ORDERED: Hydrocodone-Acetamin 15 ML UDCUP PO PRN (11:08)
--- NOTE | 2019-09-08 11:13 | PDOC.HOSPP ---
- Subjective Encounter Date: 09/08/19 Encounter Time: 11:11 Subjective: Patient seen and examined for Ann esophagitis. Some nausea. No CP/SOB. No new complaints. No overnight events - Objective Vital Signs & Weight: Vital Signs (12 hours) Temp Pulse Resp BP Pulse Ox 09/08/19 07:20 98.2 F 67 18 108/68 95 09/08/19 00:00 98.0 F 70 18 108/67 98 Weight Admit Weight 90 lb 3.2 oz Weight 90 lb 3.2 oz I&O: 09/07/19 09/08/19 09/09/19 06:59 06:59 06:59 Intake Total 480 600 Balance 480 600 Result Diagrams: 09/08/19 05:25 09/08/19 05:25 Hospitalist ROS - Review of Systems Respiratory: denies: cough, dry, shortness of breath, hemoptysis, SOB with excertion, pleuritic pain, sputum, wheezing, other Cardiovascular: denies: chest pain, palpitations, orthopnea, paroxysmal noc. dyspnea, edema, light headedness, other - Medication Medications: Active Medications Generic Name Dose Route Start Last Admin Trade Name Freq PRN Reason Stop Dose Admin Alprazolam 2 mg 09/05/19 21:00 09/07/19 20:50 Xanax PO Not Given BID ONRRIS Amphotericin B 150 mg/ 287.5 mls @ 143.75 mls/hr 09/07/19 13:00 09/07/19 13: 54 Dextrose/Water IVPB 287.5 mls 1300 NORRIS Administration Miscellaneous Medication 1 10 mls @ 0 mls/hr 09/07/19 13:00 09/07/19 13:53 each/ Dextrose/Water IVPB 10 mls 1300 NORRIS Administration As Directed Miscellaneous Medication 1 10 mls @ 0 mls/hr 09/07/19 15:00 09/07/19 15:25 each/ Dextrose/Water IVPB 10 mls 1500 NORRIS Administration As Directed Lamivudine 150 mg 09/06/19 21:00 09/07/19 20:50 Epivir Oral Solution PO Not Given BID NORRIS Lopinavir/Ritonavir 200 mg 09/06/19 21:00 09/07/19 20:50 Kaletra PO Not Given BID NORRIS Olanzapine 10 mg 09/06/19 09:00 09/07/19 12:02 Zyprexa PO Not Given DAILY NORRIS - Exam General Appearance: NAD Neck: supple, no JVD Heart: RRR, no gallops Respiratory: CTAB, no rales Gastrointestinal: soft, non-tender, normal bowel sounds Extremities: no edema Hosp A/P - Plan PT/OT, DVT proph w/heparin, DVT proph w/SCDs Ann esophagitis with esophageal stricture Hypokalemia/Hypomagnesemia Dehydration with lactic acidosis Advanced HIV Moderate PEM Hyponatremia Chronic Anemia Physical deconditioning PLAN: Cont Amphotericin B Repklace Potassium/Magnessium Cont HIV meds Add PT/OT Cont other meds
[2019-09-08] MEDS: HYDROcodone/Acetaminophen 10/325 mg Tablet PO SCH (11:15)
[2019-09-08] MEDS ORDERED: Magnesium 2 GM/50 ML 2 GM in Premix Bag 1 BAG IVPB SCH (11:15)
[2019-09-08] MEDS: ALPRAZolam 1 MG TAB PO SCH ×2 (13:35→21:02)
[2019-09-08] MEDS: WATER IVPB SCH (13:36)
[2019-09-08] MEDS: DEXTROSE 5% IVPB SCH (13:36)
[2019-09-08] MEDS: Admixture Fee 1 EACH in Dextrose 5% in Water 10 ML IVPB SCH ×2 (13:36→13:37)
[2019-09-08] MEDS: AMBISOME IVPB SCH (13:36)
[2019-09-08] MEDS: OLANZapine 5 MG TAB PO SCH (14:14)
[2019-09-08] MEDS: Lopinavir/Ritonavir 80 MG/20 MG per ML Oral Solution PO SCH ×2 (14:14→21:02)
[2019-09-08] MEDS: Heparin 5,000 UNITS/ML VIAL SC SCH (21:02)
[2019-09-09] MEDS: OLANZapine 5 MG TAB PO SCH (08:58)
[2019-09-09] MEDS: Heparin 5,000 UNITS/ML VIAL SC SCH ×2 (08:58→21:42)
[2019-09-09] MEDS: Multivit, Therapeutic 1 TAB PO SCH (08:59)
[2019-09-09] MEDS: Lopinavir/Ritonavir 80 MG/20 MG per ML Oral Solution PO SCH ×2 (08:59→21:42)
--- NOTE | 2019-09-09 09:23 | PDOC.HOSPP ---
- Subjective Encounter Date: 09/09/19 Encounter Time: : Subjective: Patient seen and examined for Ann esophagitis. Nausea +. 2 episodes of vomiting - large per patient. diarrhea + 3 episodes - watery. No other complaints. No overnight events - Objective Vital Signs & Weight: Weight Admit Weight 90 lb 3.2 oz Weight 90 lb 3.2 oz I&O: 09/08/19 09/09/19 09/10/19 06:59 06:59 06:59 Intake Total 600 400 Balance 600 400 Result Diagrams: 09/08/19 05:25 09/08/19 05:25 Hospitalist ROS - Review of Systems Constitutional: denies: fever, chills, sweats, weakness, malaise, other Respiratory: denies: cough, dry, shortness of breath, hemoptysis, SOB with excertion, pleuritic pain, sputum, wheezing, other - Medication Medications: Active Medications Generic Name Dose Route Start Last Admin Trade Name Freq PRN Reason Stop Dose Admin Alprazolam 2 mg 09/05/19 21:00 09/08/19 21:02 Xanax PO Not Given BID NORRIS Heparin Sodium (Porcine) 5,000 units 09/08/19 21:00 09/09/19 08:58 Heparin SC Not Given BID NORRIS Amphotericin B 150 mg/ 287.5 mls @ 143.75 mls/hr 09/07/19 13:00 09/08/19 13: 36 Dextrose/Water IVPB 287.5 mls 1300 NORRIS Administration Miscellaneous Medication 1 10 mls @ 0 mls/hr 09/07/19 13:00 09/08/19 13:36 each/ Dextrose/Water IVPB 10 mls 1300 NORRIS Administration As Directed Miscellaneous Medication 1 10 mls @ 0 mls/hr 09/07/19 15:00 09/08/19 13:37 each/ Dextrose/Water IVPB 10 mls 1500 NORRIS Administration As Directed Lamivudine 150 mg 09/06/19 21:00 09/09/19 08:59 Epivir Oral Solution PO Not Given BID NORRIS Lopinavir/Ritonavir 200 mg 09/06/19 21:00 09/09/19 08:59 Kaletra PO Not Given BID NORRIS Multivitamins 1 tab 09/09/19 09:00 09/09/19 08:59 Theragran PO Not Given DAILY NORRIS Olanzapine 10 mg 09/06/19 09:00 09/09/19 08:58 Zyprexa PO Not Given DAILY NORRIS Sodium Chloride 10 ml 09/08/19 21:00 09/09/19 08:59 Flush - Normal Saline IVF Not Given Q12HR NORRIS - Exam General Appearance: NAD Neck: supple, no JVD Heart: RRR, no murmur, no rubs Respiratory: CTAB, no rales, no ronchi Gastrointestinal: soft, normal bowel sounds, tender to palpation (left flank - chronic) Extremities: no edema Hosp A/P - Plan PT/OT, DVT proph w/heparin, DVT proph w/SCDs Ann esophagitis with esophageal stricture Hypokalemia/Hypomagnesemia Dehydration with lactic acidosis Advanced HIV Moderate PEM Hyponatremia Chronic Anemia Physical deconditioning PLAN: Cont Amphotericin B Add IVF due to nausea/diarrhea Refusing labs Cont HIV meds Await PT/OT Cont other meds Pain control
[2019-09-09] MEDS: Morphine 2 MG/ML SYRINGE SLOW IVP PRN ×2 (10:06→19:42)
[2019-09-09] MEDS: D5 1/2 NS w/20 mEq KCL 1,000 ML IV SCH (10:06)
[2019-09-09] MEDS: ALPRAZolam 1 MG TAB PO SCH ×2 (10:08→21:43)
[2019-09-09 10:29] LABS: Anion Gap 11 mmol/L (10-20); BUN (Urea Nitrogen) 8 mg/dL (7.0-18.7); Calc. Creatinine Clearance 72 mL/min (70-130); Calcium 9.6 mg/dL (7.8-10.44); Carbon Dioxide 27 mmol/L (22-29); Chloride 104 mmol/L (98-107); Estimated GFR-MDRD Greater than 90; Glucose 127 mg/dL (70-105); Potassium 3.1 mmol/L (3.5-5.1); Sodium 139 mmol/L (136-145)
[2019-09-09] MEDS: Admixture Fee 1 EACH in Dextrose 5% in Water 10 ML IVPB SCH ×2 (14:34→17:17)
[2019-09-09] MEDS: DEXTROSE 5% IVPB SCH (14:35)
[2019-09-09] MEDS: AMBISOME IVPB SCH (14:35)
[2019-09-09] MEDS: WATER IVPB SCH (14:35)
--- NOTE | 2019-09-09 16:55 | PRG ---
DATE OF SERVICE: 09/09/2019 SUBJECTIVE: She feels weird, in her own words. She denies headaches. Swallowing better. A little bit of tenderness in the epigastric area. No dyspnea or chest pain. A little bit of loose stool. Voiding without difficulty. OBJECTIVE: VITAL SIGNS: Normal. GENERAL: Awake, alert, oriented. LUNGS: Symmetric clear breath sounds. HEART: S1, S2, regular rate. ABDOMEN: Soft, not distended or tender. EXTREMITIES: Moves all extremities equally. LABORATORY DATA: White cell count 3.3, hemoglobin 10, platelets 245. Potassium 3.1, creatinine 0.64, magnesium 1.6 and then 2.0. She has she had potassium replacement. ASSESSMENT/DISCUSSION: Longstanding human immunodeficiency virus infection, advanced immunosuppression due to poor adherence to anti-retroviral therapy, personal issues including depression, homelessness, which is intermittent, poverty, and so on. 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 Consider discharge planning in a.m. on oral Sporanox, the dose will be 200 mg 3 times a day for 3 days and then from then on itraconazole 200 mg twice daily for a full year. I will provide the medication through her insurance in the outpatient setting. The remainder of her medications include Triumeq and Bactrim which she already has at home. Follow up in the clinic with me within the next 4 weeks. Job ID: [id number]
[2019-09-10] MEDS: D5 1/2 NS w/20 mEq KCL 1,000 ML IV SCH (01:10)
[2019-09-10 07:09] VITALS: BP 113/76; TEMP 98
[2019-09-10 07:12] LABS: Anion Gap 11 mmol/L (10-20); BUN (Urea Nitrogen) 11 mg/dL (7.0-18.7); Calc. Creatinine Clearance 66 mL/min (70-130); Calcium 8.6 mg/dL (7.8-10.44); Carbon Dioxide 26 mmol/L (22-29); Chloride 106 mmol/L (98-107); Estimated GFR-MDRD Greater than 90; Glucose 96 mg/dL (70-105); Potassium 3.5 mmol/L (3.5-5.1); Sodium 139 mmol/L (136-145)
[2019-09-10] MEDS: Heparin 5,000 UNITS/ML VIAL SC SCH (10:32)
[2019-09-10] MEDS: Multivit, Therapeutic 1 TAB PO SCH (11:04)
--- NOTE | 2019-09-10 11:29 | PQF ---
DATE: 09-10-19 ATTN: DR. STIVEN SANTO Please exercise your independent, professional judgment in responding to the clarification form. Clinical indicators are provided on the bottom of this form for your review Please check appropriate box(s): Conflicting documentation was noted in the Medical Record, please clarify if patient is being treated/monitored for: [ ] SEVERE PROTEIN-CALORIE MALNUTRITION [ x ] MODERATE PROTEIN-ENERGY MALNUTRITION [ ] Other diagnosis [ ] Unable to determine In addition, please specify: Present on Admission (POA): [x ] Yes [ ] No [ ] Unable to determine For continuity of documentation, please document condition throughout progress notes and discharge summary. Thank You. CLINICAL INDICATORS - SIGNS / SYMPTOMS/ LABS / RESULTS AND LOCATION IN EMR: ER NOTES 09-05-19: APPEARS CACHECTIC AND WITH MUSCLE WASTING, POOR DENTITION, HX HIV H&P: 09-05-19: HX OF IRON DEFICIENCY ANEMIA, PROTEIN-CALORIE MALNUTRITION, SEVERE ACQUIRED IMMUNODEFICIENCY SYNDROME H&P: 09-05-19: SHE APPEARS TO BE SEVERELY CACHECTIC AND QUITE MALNOURISHED. PROTEIN MALNUTRITION. PN DR. MENG 09-06-19: SEVERE PROTEIN-CALORIE MALNUTRITION PN DR. SERVIN 09-09-19: MODERATE PEM RISK FACTORS / RESULTS AND LOCATION IN EMR: [facility] CONSULT 09-05-19: -3% wt loss x 10 days per EMR, pt report of decreased appetite x several months with clothes fitting looser, moderate muscle wasting to clavicle region, and moderate orbital fat pad loss, HIV dx, BMI 15.5 ER NOTES 09-05-19: APPEARS CACHECTIC AND WITH MUSCLE WASTING, POOR DENTITION, HX HIV TREATMENT / RESULTS AND LOCATION IN EMR: [facility] CONSULT 09-05-19: 1. Continue REGULAR diet to promote intake. 2. Recommend chocolate Ensure Enlive BID between meals. 3. Offer ice cream in evening for snack. Ayer pt preferences. (This form is maintained as a part of the permanent medical record) 2014 [employer]. All Rights Reserved [email or web address] [email or web address] Office: [phone] VIJAY
[2019-09-10] MEDS: ALPRAZolam 1 MG TAB PO SCH (12:12)
[2019-09-10] MEDS: OLANZapine 5 MG TAB PO SCH (12:13)
[2019-09-10] MEDS: Lopinavir/Ritonavir 80 MG/20 MG per ML Oral Solution PO SCH (12:13)
--- NOTE | 2019-09-10 13:26 | DIS ---
DATE OF ADMISSION: 09/05/2019 DATE OF DISCHARGE: 09/10/2019 PRIMARY CARE PROVIDER: None. She is followed by Dr. Roth, [place]. DISPOSITION: Discharged home. FINAL DIAGNOSES: Ann esophagitis, human immunodeficiency virus disease, noncompliance with medications, moderate protein calorie malnutrition, tobacco use, and anemia of chronic disease. DISCHARGE MEDICATIONS: 1. Sporanox 200 mg three times a day for three days, then itraconazole 200 mg p.o. b.i.d. for one year. 2. She is on Triumeq and Bactrim at home, she has prescriptions for those. ALLERGIES: TO KLONOPIN AND REGLAN. CODE STATUS: Full. PENDING AT THE TIME OF DISCHARGE: Nothing. DIET: As tolerated. HOSPITAL COURSE: The patient admitted through [facility] to the Hospitalist Service with complaints of fever, chills, sore throat, history of HIV. Diagnosis of Ann esophagitis was made. It is pertinent to note that the patient was not on her HIV medicines when she was admitted. She was started on IV fluconazole. Dr. Roth was consulted. She improved with the IV antifungal. She is being transitioned per Dr. Roth to oral antifungal drugs, discharged home. She is to take her HIV medicines. Follow up with Dr. Roth in one week. White cell count on admission 7.8, hemoglobin 10.1, platelet count 278,000. Chemistries revealed a low BUN of 6 and a low creatinine of 0.54 with a low albumin of 3.1. The patient's vital signs are stable, she is eating well. She is being discharged for followup with Dr. Roth. Job ID: [id number]
[2019-09-10] MEDS ORDERED: Sulfameth/Trimethoprim DS 800-160mg TAB PO SCH (21:00)
== END 2019-09-10 14:31 | disposition home or self-care (01) | DRG 975 ==
LOC: ERS 09:09 → T4-A 14:18
PROVIDERS: ADMIT Internal Medicine; ATTEND Internal Medicine
DX: B37.81 Candidal esophagitis (principal); B20 Human immunodeficiency virus [HIV] disease; Z68.1 Body mass index [BMI] 19.9 or less, adult; E87.2 Acidosis; E87.1 Hypo-osmolality and hyponatremia; E44.0 Moderate protein-calorie malnutrition; F41.9 Anxiety disorder, unspecified; F31.9 Bipolar disorder, unspecified; F17.210 Nicotine dependence, cigarettes, uncomplicated; D50.9 Iron deficiency anemia, unspecified; K22.2 Esophageal obstruction; E87.6 Hypokalemia; E83.42 Hypomagnesemia; E86.0 Dehydration; B39.9 Histoplasmosis, unspecified; D63.8 Anemia in other chronic diseases classified elsewhere; Z79.899 Other long term (current) drug therapy; Z59.0 Homelessness; Z91.14 Patient's other noncompliance with medication regimen
CPT/HCPCS: 36415; 71046; 80048; 80053; 81003; 81015; 83605; 83735; 84100; 85025; 87040; 87086; 87804; 94760; 96365; 96366; C9399; J0289; J1450; J2270; J3475; J7070; Q0162

== ENCOUNTER 2020-08-19 07:43 | Emergency (ER) | payer MEDICARE, MEDICAID ==
[2020-08-19] MEDS ORDERED: Ketorolac Tromethamine 30 MG/ML VIAL ONE (08:24)
[2020-08-19] MEDS ORDERED: Diazepam 5 MG TAB ONE (08:24)
--- NOTE | 2020-08-19 10:02 | RAD ---
2 VIEWS CHEST: Date: 08/19/2020 COMPARISON: 09/05/2019. HISTORY: Thoracic back pain. FINDINGS: Two views of the chest show normal sized cardiomediastinal silhouette. There is no evidence of consol idation, mass, or pleural effusion. The bones are unremarkable. IMPRESSION: No evidence of acute cardiopulmonary disease. POS: [facility]AA
== END 2020-08-19 09:50 | disposition home or self-care (01) ==
LOC: ERS 07:43
DX: M62.830 Muscle spasm of back (principal); B20 Human immunodeficiency virus [HIV] disease; F31.9 Bipolar disorder, unspecified; F41.9 Anxiety disorder, unspecified; F17.210 Nicotine dependence, cigarettes, uncomplicated; Z79.899 Other long term (current) drug therapy; V89.2XXA Person injured in unspecified motor-vehicle accident, traffic, initial encounter
CPT/HCPCS: 71046; 96372; J1885

== ENCOUNTER 2021-12-25 13:36 | Emergency (ER) | payer MEDICARE, MEDICAID ==
[2021-12-25 14:07] LABS: #Lymphocytes 0.9 thou/uL (1.20-3.40); #Monocytes 0.4 thou/uL (0.11-0.59); #Neutrophils 2.4 thou/uL (1.40-6.50); %Basophils 0.3 % (0.0-1.0); %Eosinophils 0.3 % (0.0-10.0); %Monocytes 9.5 % (0.0-10.0); Hemoglobin 11.8 g/dL (12.0-16.0); Mean Corpuscular HGB CONC 33.7 g/dL (32.0-36.0); Mean Corpuscular Hemoglobin 26.1 pg (27.0-31.0); Mean Corpuscular Volume 77.3 fL (78.0-98.0); Mean Platelet Volume 8.8 fL (7.4-10.4); Platelet Count 204 thou/uL (130-400); RBC Distribution Width 14.9 % (11.5-14.5); Red Blood Cell (RBC) Count 4.52 mill/uL (4.20-5.40); White Blood Cell (WBC) Count 3.6 thou/uL (4.8-10.8)
[2021-12-25 14:26] LABS: ALT (SGPT) 8 U/L (8-55); AST (SGOT) 18 U/L (5-34); Albumin 3.4 g/dL (3.5-5.0); Alkaline Phosphatase 66 U/L (40-110); Anion Gap 10 mmol/L (10-20); BUN (Urea Nitrogen) 8 mg/dL (7.0-18.7); Bilirubin, Total 0.3 mg/dL (0.2-1.2); Calc. Creatinine Clearance 0 mL/min (70-130); Calcium 8.7 mg/dL (7.8-10.44); Carbon Dioxide 25 mmol/L (22-29); Chloride 104 mmol/L (98-107); Globulin 3.9 g/dL (2.4-3.5); Glucose 106 mg/dL (70-105); Protein, Total 7.3 g/dL (6.0-8.3); Sodium 136 mmol/L (136-145)
[2021-12-25 14:31] LABS: Potassium 2.9 mmol/L (3.5-5.1)
== END 2021-12-25 14:30 | disposition home or self-care (01) ==
LOC: ERS 13:36
DX: B37.81 Candidal esophagitis (principal); F17.210 Nicotine dependence, cigarettes, uncomplicated; B20 Human immunodeficiency virus [HIV] disease
CPT/HCPCS: 36415; 80053; 85025; 99284

== ENCOUNTER 2021-12-26 14:22 | Inpatient (IN) | payer MEDICARE, MEDICAID ==
[2021-12-26] MEDS ORDERED: Ondansetron ODT 4 MG TAB ONE (14:40)
[2021-12-26 16:35] LABS: Hemoglobin 13.7 g/dL (12.0-16.0); Mean Corpuscular HGB CONC 32.7 g/dL (32.0-36.0); Mean Corpuscular Volume 76.5 fL (78.0-98.0); Mean Platelet Volume 9.9 fL (7.4-10.4); Platelet Count 205 thou/uL (130-400); RBC Distribution Width 15.1 % (11.5-14.5); Red Blood Cell (RBC) Count 5.49 mill/uL (4.20-5.40); White Blood Cell (WBC) Count 5.6 thou/uL (4.8-10.8)
[2021-12-26 16:56] LABS: Band 1 % (5-11); Hypochromia SLIGHT = 6-15 cells (100X) (0-5/hpf); Large Platelets SLIGHT; Lymphocytes 21 % (21-51); MDiff Complete? YES; Microcytosis SLIGHT = 6-15 cells (100X) (0-5/hpf); Monocytes 4 % (0-10); Neutrophil 72 % (42-75); Platelet Clumps MODERATE; Platelet Morphology Comment Appears Adequate; Reactive Lymphocytes 1 % (0-10); Target Cells SLIGHT = 2-5 cells (100X) (0-1/hpf)
[2021-12-26] MEDS ORDERED: Morphine 4 MG/ML VIAL ONE ×2 (17:30→20:24)
[2021-12-26] MEDS ORDERED: Ketorolac Tromethamine 30 MG/ML VIAL ONE (17:30)
[2021-12-26] MEDS ORDERED: Ondansetron PF 4 MG/2 ML Vial ONE ×2 (17:30→20:24)
[2021-12-26 18:05] LABS: ALT (SGPT) 16 U/L (8-55); AST (SGOT) 38 U/L (5-34); Albumin 4.3 g/dL (3.5-5.0); Alkaline Phosphatase 84 U/L (40-110); Anion Gap 21 mmol/L (10-20); BUN (Urea Nitrogen) 12 mg/dL (7.0-18.7); Bilirubin, Total 0.3 mg/dL (0.2-1.2); Calc. Creatinine Clearance 0 mL/min (70-130); Calcium 9.6 mg/dL (7.8-10.44); Carbon Dioxide 16 mmol/L (22-29); Chloride 106 mmol/L (98-107); Globulin 5.1 g/dL (2.4-3.5); Glucose 95 mg/dL (70-105); Lipase 17 U/L (8-78); Potassium 3.4 mmol/L (3.5-5.1); Protein, Total 9.4 g/dL (6.0-8.3); Sodium 140 mmol/L (136-145)
[2021-12-26 18:26] LABS: Pregnancy Test - Urine (BHCG) Negative (Negative); Pregu Control Background? CLEAR/WHITE (CLR/WHITE); Pregu Control Bar Appear? YES (CONTROL BAR); Specific Gravity 1.018 (1.002-1.036)
[2021-12-26 18:28] LABS: Bilirubin Negative (Negative); Blood, Urine Negative (Negative); Clarity Turbid (Clear); Glucose, Urine (Dipstick) Normal (Negative); Ketone, Urine Trace mg/dL (Negative); Leukocyte 25 Leu/uL (Negative); Nitrite Negative (Negative); Protein, Urine (Dipstick) 70 mg/dL (Neg-Trace); Specific Gravity, Urine 1.018 (1.002-1.036); Urobilinogen Normal mg/dL (Less than 2)
[2021-12-26 18:29] LABS: Bacteria/HPF 1+ HPF (None Seen)
[2021-12-26 20:22] LABS: Lactic Acid 2.4 mmol/L (0.5-2.2)
[2021-12-26] MEDS ORDERED: Fluconazole In NaCl,Iso-Osm 400 MG in Premix Bag 1 BAG IVPB SCH (22:00)
[2021-12-26] MEDS ORDERED: Sodium Chloride 0.9% 1,000 ML IV SCH (23:15)
[2021-12-26 23:27] VITALS: BMI 15.3
[2021-12-26] MEDS ORDERED: Potassium Chloride 20 MEQ TAB PO SCH (23:45)
[2021-12-26] MEDS ORDERED: Potassium Chloride 10 MEQ/100 ML PREMIX BAG IVPB SCH (23:59)
[2021-12-26] MEDS ORDERED: diphenhydrAMINE 50 MG/ML VIAL IVP SCH (23:59)
[2021-12-27] MEDS ORDERED: Ondansetron ODT 4 MG TAB PO PRN (08:53)
[2021-12-27] MEDS ORDERED: Nicotine 14 MG PATCH TD PRN (08:53)
[2021-12-27] MEDS ORDERED: Acetaminophen 325 MG TAB PO PRN (08:53)
[2021-12-27] MEDS ORDERED: Non-Formulary Item 1 EACH (Olanzapine [Zyprexa] 10 MG Tablet) PO SCH (09:00)
[2021-12-27] MEDS ORDERED: Electrolyte Replacement Protocol 1 EACH FS SCH (09:00)
[2021-12-27] MEDS: Sodium Chloride 0.9% 1,000 ML IV SCH ×2 (10:00→19:00)
[2021-12-27 10:36] LABS: Magnesium 1.5 mg/dL (1.6-2.6)
[2021-12-27] MEDS: Ondansetron PF 4 MG/2 ML Vial IVP PRN ×2 (10:36→17:37)
[2021-12-27] MEDS: Pantoprazole 40 MG VIAL IVP SCH (10:36)
[2021-12-27 12:04] LABS: SARS-CoV-2 PCR by NAA DETECTED (NotDetected)
[2021-12-27] MEDS ORDERED: Magnesium 2 GM/50 ML 2 GM in Premix Bag 1 BAG IVPB SCH (13:00)
[2021-12-27] MEDS: Fluconazole In NaCl,Iso-Osm 400 MG in Premix Bag 1 BAG IVPB SCH (17:37)
[2021-12-27] MEDS ORDERED: Ketorolac Tromethamine 30 MG/ML VIAL IVP PRN (17:38)
[2021-12-27 18:53] LABS: SARS-CoV-2 IgG Spike Ab Interp Non-Reactive (NonReactive); SARS-CoV-2 IgG Spike Conc/Indx 5.1 AU/mL (0.00-50.0)
[2021-12-27] MEDS: Lopinavir/Ritonavir 80 MG/20 MG per ML Oral Solution PO SCH (21:24)
[2021-12-27] MEDS: traMADol HCl 50 MG TAB PO PRN (21:24)
[2021-12-27] MEDS: Cholecalciferol 1,000 UNITS (25 MCG) TAB PO SCH (21:24)
[2021-12-28] MEDS: Sodium Chloride 0.9% 1,000 ML IV SCH ×2 (00:50→05:29)
[2021-12-28] MEDS ORDERED: Chloraseptic Spray 180 ml Bottle PO PRN (06:20)
[2021-12-28] MEDS: OLANZapine 5 MG TAB PO SCH ×3 (07:17→20:05)
[2021-12-28 08:14] LABS: #Lymphocytes 0.8 thou/uL (1.20-3.40); #Monocytes 0.4 thou/uL (0.11-0.59); #Neutrophils 2.4 thou/uL (1.40-6.50); %Eosinophils 0.4 % (0.0-10.0); %Lymphocytes 22.6 % (21.0-51.0); %Monocytes 9.9 % (0.0-10.0); %Neutrophils 67.1 % (42.0-75.0); Hemoglobin 9.1 g/dL (12.0-16.0); Mean Corpuscular HGB CONC 32.4 g/dL (32.0-36.0); Mean Corpuscular Hemoglobin 25.2 pg (27.0-31.0); Mean Corpuscular Volume 77.8 fL (78.0-98.0); Mean Platelet Volume 8.9 fL (7.4-10.4); Platelet Count 156 thou/uL (130-400); RBC Distribution Width 14.7 % (11.5-14.5); Red Blood Cell (RBC) Count 3.61 mill/uL (4.20-5.40); White Blood Cell (WBC) Count 3.6 thou/uL (4.8-10.8)
[2021-12-28] MEDS: Ondansetron PF 4 MG/2 ML Vial IVP PRN (08:23)
[2021-12-28] MEDS: Pantoprazole 40 MG VIAL IVP SCH (08:23)
[2021-12-28 08:41] LABS: Hypochromia SLIGHT = 6-15 cells (100X) (0-5/hpf); MDiff Complete? YES; Microcytosis SLIGHT = 6-15 cells (100X) (0-5/hpf); Platelet Morphology Comment Appears Adequate; Polychromasia SLIGHT = 2-3 cells (100X) (0-2/hpf)
[2021-12-28 08:49] LABS: Anion Gap 7 mmol/L (10-20); BUN (Urea Nitrogen) 6 mg/dL (7.0-18.7); Calc. Creatinine Clearance 70 mL/min (70-130); Calcium 7.8 mg/dL (7.8-10.44); Carbon Dioxide 22 mmol/L (22-29); Chloride 113 mmol/L (98-107); Glucose 83 mg/dL (70-105); Potassium 2.7 mmol/L (3.5-5.1); Sodium 139 mmol/L (136-145)
[2021-12-28] MEDS: Ascorbic Acid 500 mg Chewable Tablet PO SCH (09:14)
[2021-12-28] MEDS: Lopinavir/Ritonavir 80 MG/20 MG per ML Oral Solution PO SCH ×2 (09:15→20:05)
[2021-12-28] MEDS: Zinc Sulfate 220 MG CAP PO SCH (09:15)
[2021-12-28] MEDS: SMX/TMP 800-160mg/20 ML UDCUP PO SCH (09:15)
[2021-12-28] MEDS: Morphine 4 MG/ML VIAL SLOW IVP PRN ×3 (10:15→20:08)
[2021-12-28] MEDS: D5 1/2 NS w/20 mEq KCL 1,000 ML IV SCH (10:16)
[2021-12-28] MEDS: Potassium Chloride 10 MEQ in Premix Bag 1 BAG IVPB SCH ×3 (10:29→17:58)
[2021-12-28] MEDS ORDERED: Sodium Chloride 0.65% Nasal 44 ML BOT EA NARE PRN (11:25)
[2021-12-28] MEDS ORDERED: Hydrocerin (Eucerin) Cream 120 gm Jar TOP PRN (11:25)
[2021-12-28] MEDS ORDERED: GUAIFENESIN SF SOLN 200 MG/10 ML UDCUP PO PRN (11:25)
[2021-12-28] MEDS ORDERED: Loratadine 10 MG TAB PO PRN (11:25)
[2021-12-28] MEDS ORDERED: Cepastat Lozenges 1 LOZ PO PRN (11:25)
[2021-12-28] MEDS ORDERED: hydrALAZINE 20 MG/ML VIAL SLOW IVP PRN (11:25)
[2021-12-28] MEDS ORDERED: Loperamide HCl 2 MG CAP PO PRN (11:25)
[2021-12-28] MEDS ORDERED: diphenhydrAMINE 50 MG/ML VIAL IVP SCH (16:30)
[2021-12-28 16:36] LABS: %CD4 (Helper/Inducer) 5.7 % (30.8-58.5); Absolute CD4 40 /uL (359-1519); Lymphocytes/Gated Cell Count 0.7 x10E3/uL (0.7-3.1); Total Lymphocyte 15 % (Not Estab.); WBC Total Count 4.8 x10E3/uL (3.4-10.8)
[2021-12-28] MEDS: Fluconazole In NaCl,Iso-Osm 400 MG in Premix Bag 1 BAG IVPB SCH (16:36)
[2021-12-28] MEDS: Zolpidem Tartrate 5 MG TAB PO PRN (20:04)
[2021-12-28] MEDS: Cholecalciferol 1,000 UNITS (25 MCG) TAB PO SCH (20:05)
[2021-12-29] MEDS: D5 1/2 NS w/20 mEq KCL 1,000 ML IV SCH ×3 (00:21→22:49)
[2021-12-29] MEDS: Potassium Chloride 10 MEQ in Premix Bag 1 BAG IVPB SCH (00:21)
[2021-12-29] MEDS: Morphine 4 MG/ML VIAL SLOW IVP PRN ×5 (00:30→22:49)
[2021-12-29 06:19] LABS: #Lymphocytes 0.8 thou/uL (1.20-3.40); #Monocytes 0.2 thou/uL (0.11-0.59); #Neutrophils 1.7 thou/uL (1.40-6.50); %Basophils 0.5 % (0.0-1.0); %Eosinophils 0.3 % (0.0-10.0); %Lymphocytes 29.7 % (21.0-51.0); %Monocytes 7.9 % (0.0-10.0); %Neutrophils 61.6 % (42.0-75.0); Hemoglobin 9.2 g/dL (12.0-16.0); Mean Corpuscular HGB CONC 32.3 g/dL (32.0-36.0); Mean Corpuscular Volume 77.4 fL (78.0-98.0); Mean Platelet Volume 9.1 fL (7.4-10.4); Platelet Count 146 thou/uL (130-400); RBC Distribution Width 14.6 % (11.5-14.5); Red Blood Cell (RBC) Count 3.69 mill/uL (4.20-5.40); White Blood Cell (WBC) Count 2.7 thou/uL (4.8-10.8)
[2021-12-29 06:37] LABS: Anion Gap 8 mmol/L (10-20); BUN (Urea Nitrogen) Less than 4 mg/dL (7.0-18.7); CRP (Inflammatory) Less than 0.50 mg/dL (= or < 0.5); Calc. Creatinine Clearance 73 mL/min (70-130); Calcium 7.8 mg/dL (7.8-10.44); Carbon Dioxide 20 mmol/L (22-29); Chloride 112 mmol/L (98-107); Glucose 103 mg/dL (70-105); Magnesium 1.4 mg/dL (1.6-2.6); Potassium 3.2 mmol/L (3.5-5.1); Sodium 137 mmol/L (136-145)
[2021-12-29 06:40] LABS: Phosphorus 1.9 mg/dL (2.3-4.7)
[2021-12-29] MEDS: Ascorbic Acid 500 mg Chewable Tablet PO SCH (08:13)
[2021-12-29] MEDS: Lopinavir/Ritonavir 80 MG/20 MG per ML Oral Solution PO SCH ×2 (08:14→20:55)
[2021-12-29] MEDS ORDERED: Potassium Chloride 20 MEQ in Premix Bag 1 BAG IVPB SCH (08:15)
[2021-12-29] MEDS ORDERED: Magnesium 2 GM/50 ML 2 GM in Premix Bag 1 BAG IVPB SCH (08:15)
[2021-12-29] MEDS: Pantoprazole 40 MG VIAL IVP SCH (08:16)
[2021-12-29] MEDS: Zinc Sulfate 220 MG CAP PO SCH (08:18)
[2021-12-29] MEDS: SMX/TMP 800-160mg/20 ML UDCUP PO SCH (08:18)
[2021-12-29] MEDS: Fluconazole In NaCl,Iso-Osm 400 MG in Premix Bag 1 BAG IVPB SCH (17:20)
[2021-12-29] MEDS: Ondansetron PF 4 MG/2 ML Vial IVP PRN (17:20)
[2021-12-29] MEDS: Loperamide HCl 2 MG CAP PO SCH (20:54)
[2021-12-29] MEDS: metroNIDAZOLE 500 MG TAB PO SCH (20:55)
[2021-12-29] MEDS: OLANZapine 5 MG TAB PO SCH (20:55)
[2021-12-29] MEDS: Cholecalciferol 1,000 UNITS (25 MCG) TAB PO SCH (20:55)
[2021-12-29] MEDS: Zolpidem Tartrate 5 MG TAB PO PRN (20:55)
[2021-12-30] MEDS: Morphine 4 MG/ML VIAL SLOW IVP PRN ×5 (03:30→21:11)
[2021-12-30] MEDS: metroNIDAZOLE 500 MG TAB PO SCH ×3 (05:11→22:16)
[2021-12-30] MEDS: Loperamide HCl 2 MG CAP PO SCH ×3 (05:11→21:45)
[2021-12-30] MEDS: Pantoprazole 40 MG VIAL IVP SCH (08:11)
[2021-12-30] MEDS: SMX/TMP 800-160mg/20 ML UDCUP PO SCH (08:11)
[2021-12-30] MEDS: Lopinavir/Ritonavir 80 MG/20 MG per ML Oral Solution PO SCH ×2 (08:14→21:45)
[2021-12-30] MEDS: Ascorbic Acid 500 mg Chewable Tablet PO SCH (08:14)
[2021-12-30] MEDS: Zinc Sulfate 220 MG CAP PO SCH (08:15)
[2021-12-30] MEDS: D5 1/2 NS w/20 mEq KCL 1,000 ML IV SCH (12:47)
[2021-12-30] MEDS: diphenhydrAMINE 25 MG CAP PO PRN (15:07)
[2021-12-30] MEDS: Fluconazole In NaCl,Iso-Osm 400 MG in Premix Bag 1 BAG IVPB SCH (17:45)
[2021-12-30] MEDS: OLANZapine 5 MG TAB PO SCH (21:06)
[2021-12-30] MEDS: Zolpidem Tartrate 5 MG TAB PO PRN (21:06)
[2021-12-30] MEDS: Cholecalciferol 1,000 UNITS (25 MCG) TAB PO SCH (21:45)
[2021-12-31] MEDS: Morphine 4 MG/ML VIAL SLOW IVP PRN ×6 (01:23→22:28)
[2021-12-31] MEDS: Loperamide HCl 2 MG CAP PO SCH ×3 (05:36→21:41)
[2021-12-31] MEDS: D5 1/2 NS w/20 mEq KCL 1,000 ML IV SCH ×2 (05:36→17:50)
[2021-12-31] MEDS: metroNIDAZOLE 500 MG TAB PO SCH ×3 (05:37→21:41)
[2021-12-31 06:08] LABS: #Lymphocytes 1.2 thou/uL (1.20-3.40); #Monocytes 0.2 thou/uL (0.11-0.59); #Neutrophils 1.8 thou/uL (1.40-6.50); %Basophils 0.8 % (0.0-1.0); %Eosinophils 0.3 % (0.0-10.0); %Lymphocytes 37.6 % (21.0-51.0); %Monocytes 5.3 % (0.0-10.0); Hemoglobin 9.9 g/dL (12.0-16.0); Mean Corpuscular HGB CONC 31.9 g/dL (32.0-36.0); Mean Corpuscular Volume 78.3 fL (78.0-98.0); Mean Platelet Volume 9.2 fL (7.4-10.4); Platelet Count 157 thou/uL (130-400); RBC Distribution Width 14.8 % (11.5-14.5); Red Blood Cell (RBC) Count 3.94 mill/uL (4.20-5.40); White Blood Cell (WBC) Count 3.2 thou/uL (4.8-10.8)
[2021-12-31 06:35] LABS: Anion Gap 8 mmol/L (10-20); BUN (Urea Nitrogen) Less than 4 mg/dL (7.0-18.7); Calc. Creatinine Clearance 66 mL/min (70-130); Calcium 8.1 mg/dL (7.8-10.44); Carbon Dioxide 20 mmol/L (22-29); Chloride 112 mmol/L (98-107); Glucose 73 mg/dL (70-105); Magnesium 1.1 mg/dL (1.6-2.6); Sodium 137 mmol/L (136-145)
[2021-12-31 06:40] LABS: Potassium 2.9 mmol/L (3.5-5.1)
[2021-12-31] MEDS ORDERED: Electrolyte Replacement Protocol 1 EACH FS SCH (07:00)
[2021-12-31] MEDS: Magnesium 2 GM/50 ML 2 GM in Premix Bag 1 BAG IVPB SCH ×2 (07:51→09:58)
[2021-12-31] MEDS ORDERED: Potassium Chloride 20 MEQ TAB PO SCH (08:00)
[2021-12-31] MEDS: Pantoprazole 40 MG VIAL IVP SCH (08:14)
[2021-12-31] MEDS: diphenhydrAMINE 25 MG CAP PO PRN ×2 (08:14→22:29)
[2021-12-31] MEDS: Ascorbic Acid 500 mg Chewable Tablet PO SCH (09:11)
[2021-12-31] MEDS: SMX/TMP 800-160mg/20 ML UDCUP PO SCH (09:11)
[2021-12-31] MEDS: Magnesium Oxide 400 MG TAB PO SCH (09:11)
[2021-12-31] MEDS: Zinc Sulfate 220 MG CAP PO SCH (09:11)
[2021-12-31] MEDS: Lopinavir/Ritonavir 80 MG/20 MG per ML Oral Solution PO SCH ×2 (09:11→21:41)
[2021-12-31] MEDS: Potassium Chloride 10 MEQ in Premix Bag 1 BAG IVPB SCH ×4 (12:58→22:26)
[2021-12-31] MEDS: Fluconazole In NaCl,Iso-Osm 400 MG in Premix Bag 1 BAG IVPB SCH (17:35)
[2021-12-31] MEDS: OLANZapine 5 MG TAB PO SCH (21:02)
[2021-12-31] MEDS: Zolpidem Tartrate 5 MG TAB PO PRN (21:02)
[2021-12-31] MEDS: Cholecalciferol 1,000 UNITS (25 MCG) TAB PO SCH (21:41)
[2022-01-01] MEDS: traMADol HCl 50 MG TAB PO PRN ×4 (01:05→23:16)
[2022-01-01] MEDS: D5 1/2 NS w/20 mEq KCL 1,000 ML IV SCH ×2 (02:01→23:16)
[2022-01-01] MEDS: Morphine 4 MG/ML VIAL SLOW IVP PRN ×4 (02:49→20:12)
[2022-01-01] MEDS: metroNIDAZOLE 500 MG TAB PO SCH ×4 (05:19→21:08)
[2022-01-01] MEDS: Loperamide HCl 2 MG CAP PO SCH ×3 (05:21→21:06)
[2022-01-01 06:48] LABS: Anion Gap 8 mmol/L (10-20); BUN (Urea Nitrogen) Less than 4 mg/dL (7.0-18.7); Calc. Creatinine Clearance 74 mL/min (70-130); Calcium 7.9 mg/dL (7.8-10.44); Carbon Dioxide 21 mmol/L (22-29); Chloride 113 mmol/L (98-107); Glucose 119 mg/dL (70-105); Magnesium 1.4 mg/dL (1.6-2.6); Phosphorus 2.5 mg/dL (2.3-4.7); Sodium 139 mmol/L (136-145)
[2022-01-01 06:55] LABS: Potassium 2.9 mmol/L (3.5-5.1)
[2022-01-01] MEDS: Potassium Chloride 20 MEQ TAB PO SCH ×2 (08:12→11:31)
[2022-01-01] MEDS: Pantoprazole 40 MG VIAL IVP SCH (08:16)
[2022-01-01] MEDS: Magnesium 2 GM/50 ML 2 GM in Premix Bag 1 BAG IVPB SCH ×2 (08:16→11:32)
[2022-01-01] MEDS: Zinc Sulfate 220 MG CAP PO SCH (08:18)
[2022-01-01] MEDS: Ascorbic Acid 500 mg Chewable Tablet PO SCH (08:18)
[2022-01-01] MEDS: SMX/TMP 800-160mg/20 ML UDCUP PO SCH (08:18)
[2022-01-01] MEDS: Lopinavir/Ritonavir 80 MG/20 MG per ML Oral Solution PO SCH ×2 (08:18→21:12)
[2022-01-01] MEDS: Magnesium Oxide 400 MG TAB PO SCH (08:18)
[2022-01-01 09:40] LABS: Band 12 % (5-11); Hemoglobin 9.2 g/dL (12.0-16.0); Hypochromia SLIGHT = 6-15 cells (100X) (0-5/hpf); Lymphocytes 48 % (21-51); MDiff Complete? YES; Mean Corpuscular HGB CONC 31.9 g/dL (32.0-36.0); Mean Corpuscular Hemoglobin 25.2 pg (27.0-31.0); Mean Corpuscular Volume 78.9 fL (78.0-98.0); Mean Platelet Volume 9.5 fL (7.4-10.4); Monocytes 6 % (0-10); Neutrophil 33 % (42-75); Ovalocytes SLIGHT = 2-5 cells (100X) (0-1/hpf); Platelet Count 156 thou/uL (130-400); Platelet Morphology Comment Appears Adequate; RBC Distribution Width 15.2 % (11.5-14.5); Reactive Lymphocytes 1 % (0-10); Red Blood Cell (RBC) Count 3.65 mill/uL (4.20-5.40); Tear Drops SLIGHT = 2-5 cells (100X) (0-1/hpf); White Blood Cell (WBC) Count 2.7 thou/uL (4.8-10.8)
[2022-01-01] MEDS: Fluconazole In NaCl,Iso-Osm 400 MG in Premix Bag 1 BAG IVPB SCH (17:20)
[2022-01-01] MEDS: Cholecalciferol 1,000 UNITS (25 MCG) TAB PO SCH (20:11)
[2022-01-01] MEDS: OLANZapine 5 MG TAB PO SCH (20:11)
[2022-01-01] MEDS: Zolpidem Tartrate 5 MG TAB PO PRN (21:06)
[2022-01-02] MEDS: Morphine 4 MG/ML VIAL SLOW IVP PRN ×5 (03:47→22:47)
[2022-01-02] MEDS: metroNIDAZOLE 500 MG TAB PO SCH ×3 (05:48→22:01)
[2022-01-02] MEDS: Loperamide HCl 2 MG CAP PO SCH ×3 (05:48→22:01)
[2022-01-02 07:51] LABS: Anion Gap 12 mmol/L (10-20); BUN (Urea Nitrogen) Less than 4 mg/dL (7.0-18.7); Calc. Creatinine Clearance 75 mL/min (70-130); Carbon Dioxide 17 mmol/L (22-29); Chloride 112 mmol/L (98-107); Glucose 83 mg/dL (70-105); Magnesium 1.3 mg/dL (1.6-2.6); Potassium 3.2 mmol/L (3.5-5.1); Sodium 138 mmol/L (136-145)
[2022-01-02] MEDS: traMADol HCl 50 MG TAB PO PRN ×2 (07:52→19:58)
[2022-01-02] MEDS: Pantoprazole 40 MG VIAL IVP SCH (07:52)
[2022-01-02] MEDS: SMX/TMP 800-160mg/20 ML UDCUP PO SCH (07:53)
[2022-01-02] MEDS: Lopinavir/Ritonavir 80 MG/20 MG per ML Oral Solution PO SCH (07:59)
[2022-01-02] MEDS: Zinc Sulfate 220 MG CAP PO SCH (08:00)
[2022-01-02] MEDS: Ascorbic Acid 500 mg Chewable Tablet PO SCH (08:00)
[2022-01-02] MEDS: Magnesium Oxide 400 MG TAB PO SCH (08:00)
[2022-01-02] MEDS ORDERED: Potassium Chloride 20 MEQ TAB PO SCH (08:15)
[2022-01-02] MEDS ORDERED: Magnesium Sulfate 3 GM in Sodium Chloride 0.9% 100 ML IVPB SCH (08:30)
[2022-01-02] MEDS: D5 1/2 NS w/20 mEq KCL 1,000 ML IV SCH ×2 (10:30→23:19)
[2022-01-02] MEDS: Fluconazole In NaCl,Iso-Osm 400 MG in Premix Bag 1 BAG IVPB SCH (17:28)
[2022-01-02] MEDS: Zolpidem Tartrate 5 MG TAB PO PRN (19:57)
[2022-01-02] MEDS: Cholecalciferol 1,000 UNITS (25 MCG) TAB PO SCH (19:58)
[2022-01-02] MEDS: OLANZapine 5 MG TAB PO SCH (19:58)
[2022-01-03] MEDS: traMADol HCl 50 MG TAB PO PRN (01:55)
[2022-01-03] MEDS: Morphine 4 MG/ML VIAL SLOW IVP PRN ×5 (03:29→21:04)
[2022-01-03] MEDS: Loperamide HCl 2 MG CAP PO SCH ×4 (05:15→20:21)
[2022-01-03] MEDS: metroNIDAZOLE 500 MG TAB PO SCH ×4 (05:15→20:21)
[2022-01-03] MEDS: Magnesium Oxide 400 MG TAB PO SCH (08:03)
[2022-01-03] MEDS: SMX/TMP 800-160mg/20 ML UDCUP PO SCH (08:03)
[2022-01-03] MEDS: Zinc Sulfate 220 MG CAP PO SCH (08:03)
[2022-01-03] MEDS: Ascorbic Acid 500 mg Chewable Tablet PO SCH (08:04)
[2022-01-03] MEDS: Pantoprazole 40 MG VIAL IVP SCH (08:04)
[2022-01-03 09:16] LABS: Magnesium 1.2 mg/dL (1.6-2.6)
[2022-01-03] MEDS: Albuterol 200 PUFF (6.7GM INHALER) INH PRN (11:04)
[2022-01-03] MEDS ORDERED: Magnesium Sulfate 2 GM in Sodium Chloride 0.9% 100 ML IVPB SCH (11:15)
[2022-01-03] MEDS: Magnesium 2 GM/50 ML 2 GM in Premix Bag 1 BAG IVPB SCH ×2 (11:59→13:57)
[2022-01-03] MEDS ORDERED: Potassium Chloride 20 MEQ TAB PO SCH (12:00)
[2022-01-03] MEDS: Fluconazole In NaCl,Iso-Osm 400 MG in Premix Bag 1 BAG IVPB SCH (16:49)
[2022-01-03] MEDS: Potassium Chloride 20 MEQ TAB PO SCH (16:49)
[2022-01-03] MEDS: OLANZapine 5 MG TAB PO SCH (20:19)
[2022-01-03] MEDS: Cholecalciferol 1,000 UNITS (25 MCG) TAB PO SCH (20:19)
[2022-01-03] MEDS: Zolpidem Tartrate 5 MG TAB PO PRN (20:19)
[2022-01-03] MEDS: Bisacodyl 5 MG TAB PO PRN (21:04)
[2022-01-04] MEDS: Morphine 4 MG/ML VIAL SLOW IVP PRN ×5 (01:15→21:15)
[2022-01-04] MEDS: Loperamide HCl 2 MG CAP PO SCH ×3 (05:17→20:18)
[2022-01-04] MEDS: metroNIDAZOLE 500 MG TAB PO SCH ×2 (05:18→05:25)
[2022-01-04] MEDS: Albuterol 200 PUFF (6.7GM INHALER) INH PRN ×2 (07:45→18:19)
[2022-01-04] MEDS: Zinc Sulfate 220 MG CAP PO SCH ×2 (08:13→08:28)
[2022-01-04] MEDS: Magnesium Oxide 400 MG TAB PO SCH ×2 (08:13→08:28)
[2022-01-04] MEDS: Potassium Chloride 20 MEQ TAB PO SCH ×2 (08:13→17:20)
[2022-01-04] MEDS: Ascorbic Acid 500 mg Chewable Tablet PO SCH ×2 (08:13→08:28)
[2022-01-04] MEDS: Pantoprazole 40 MG VIAL IVP SCH (08:14)
[2022-01-04] MEDS: SMX/TMP 800-160mg/20 ML UDCUP PO SCH (08:29)
[2022-01-04] MEDS: ALPRAZolam 0.25 MG TAB PO PRN ×2 (11:15→18:54)
[2022-01-04 14:19] LABS: Anion Gap 15 mmol/L (10-20); BUN (Urea Nitrogen) 5 mg/dL (7.0-18.7); Calc. Creatinine Clearance 73 mL/min (70-130); Calcium 8.5 mg/dL (7.8-10.44); Carbon Dioxide 19 mmol/L (22-29); Chloride 108 mmol/L (98-107); Glucose 101 mg/dL (70-105); Magnesium 1.5 mg/dL (1.6-2.6); Potassium 3.9 mmol/L (3.5-5.1); Sodium 138 mmol/L (136-145)
[2022-01-04] MEDS: Fluconazole In NaCl,Iso-Osm 400 MG in Premix Bag 1 BAG IVPB SCH (17:21)
[2022-01-04] MEDS: Bisacodyl 5 MG TAB PO PRN (18:11)
[2022-01-04] MEDS: OLANZapine 5 MG TAB PO SCH (20:09)
[2022-01-04] MEDS: Cholecalciferol 1,000 UNITS (25 MCG) TAB PO SCH (20:09)
[2022-01-04] MEDS: Zolpidem Tartrate 5 MG TAB PO PRN (20:09)
[2022-01-05] MEDS: Morphine 4 MG/ML VIAL SLOW IVP PRN (05:06)
[2022-01-05] MEDS: Loperamide HCl 2 MG CAP PO SCH ×3 (05:07→21:24)
[2022-01-05] MEDS ORDERED: Magnesium 2 GM/50 ML 2 GM in Premix Bag 1 BAG IVPB SCH (07:00)
[2022-01-05] MEDS ORDERED: Magnesium Sulfate 2 GM in Sodium Chloride 0.9% 100 ML IVPB SCH (08:15)
[2022-01-05] MEDS: Pantoprazole 40 MG VIAL IVP SCH (08:32)
[2022-01-05] MEDS: ALPRAZolam 0.25 MG TAB PO PRN ×2 (08:33→15:31)
[2022-01-05] MEDS: Magnesium Oxide 400 MG TAB PO SCH (08:34)
[2022-01-05] MEDS: Potassium Chloride 20 MEQ TAB PO SCH ×2 (08:34→15:41)
[2022-01-05] MEDS: Ascorbic Acid 500 mg Chewable Tablet PO SCH (08:34)
[2022-01-05] MEDS: Fluconazole 100 MG TAB PO SCH (08:34)
[2022-01-05] MEDS: Zinc Sulfate 220 MG CAP PO SCH (08:35)
[2022-01-05] MEDS: SMX/TMP 800-160mg/20 ML UDCUP PO SCH (08:35)
[2022-01-05] MEDS: Albuterol 200 PUFF (6.7GM INHALER) INH PRN ×2 (10:16→21:23)
[2022-01-05] MEDS: Nicotine 7 MG PATCH TD SCH (10:17)
[2022-01-05] MEDS: traMADol HCl 50 MG TAB PO PRN (17:47)
[2022-01-05] MEDS: Zolpidem Tartrate 5 MG TAB PO PRN (21:23)
[2022-01-05] MEDS: OLANZapine 5 MG TAB PO SCH (21:23)
[2022-01-05] MEDS: Cholecalciferol 1,000 UNITS (25 MCG) TAB PO SCH (21:23)
[2022-01-05] MEDS: Ondansetron PF 4 MG/2 ML Vial IVP PRN (21:23)
[2022-01-05] MEDS: diphenhydrAMINE 25 MG CAP PO PRN (21:36)
[2022-01-05] MEDS: Bisacodyl 5 MG TAB PO PRN (21:36)
[2022-01-06] MEDS: traMADol HCl 50 MG TAB PO PRN ×2 (00:13→20:42)
[2022-01-06] MEDS: Loperamide HCl 2 MG CAP PO SCH ×3 (06:04→20:48)
[2022-01-06] MEDS: ALPRAZolam 0.25 MG TAB PO PRN ×3 (09:05→20:42)
[2022-01-06] MEDS: Pantoprazole 40 MG VIAL IVP SCH (09:05)
[2022-01-06] MEDS: Potassium Chloride 20 MEQ TAB PO SCH ×2 (09:10→15:16)
[2022-01-06] MEDS: Ascorbic Acid 500 mg Chewable Tablet PO SCH (09:10)
[2022-01-06] MEDS: Magnesium Oxide 400 MG TAB PO SCH (09:11)
[2022-01-06] MEDS: Zinc Sulfate 220 MG CAP PO SCH (09:11)
[2022-01-06] MEDS: SMX/TMP 800-160mg/20 ML UDCUP PO SCH (09:11)
[2022-01-06] MEDS: Fluconazole 100 MG TAB PO SCH (09:11)
[2022-01-06] MEDS: Nicotine 7 MG PATCH TD SCH (09:11)
[2022-01-06] MEDS ORDERED: Bisacodyl 5 MG TAB PO SCH (11:00)
[2022-01-06] MEDS ORDERED: Pregabalin 25 MG CAP PO SCH (11:00)
[2022-01-06] MEDS: Albuterol 200 PUFF (6.7GM INHALER) INH PRN ×2 (15:59→20:46)
[2022-01-06] MEDS: OLANZapine 5 MG TAB PO SCH (20:40)
[2022-01-06] MEDS: Zolpidem Tartrate 5 MG TAB PO PRN (20:41)
[2022-01-06] MEDS: Pregabalin 25 MG CAP PO SCH (20:41)
[2022-01-06] MEDS: Cholecalciferol 1,000 UNITS (25 MCG) TAB PO SCH (20:41)
[2022-01-07] MEDS: Loperamide HCl 2 MG CAP PO SCH ×2 (05:44→11:22)
[2022-01-07] MEDS: Magnesium Oxide 400 MG TAB PO SCH (11:20)
[2022-01-07] MEDS: Pantoprazole 40 MG VIAL IVP SCH (11:20)
[2022-01-07] MEDS: Pregabalin 25 MG CAP PO SCH ×2 (11:21→20:49)
[2022-01-07] MEDS: Zinc Sulfate 220 MG CAP PO SCH (11:21)
[2022-01-07] MEDS: Fluconazole 100 MG TAB PO SCH (11:21)
[2022-01-07] MEDS: Ascorbic Acid 500 mg Chewable Tablet PO SCH (11:22)
[2022-01-07] MEDS: traMADol HCl 50 MG TAB PO PRN ×2 (11:33→17:02)
[2022-01-07] MEDS: Nicotine 7 MG PATCH TD SCH (11:35)
[2022-01-07] MEDS: Potassium Chloride 20 MEQ TAB PO SCH ×2 (11:35→16:55)
[2022-01-07] MEDS: SMX/TMP 800-160mg/20 ML UDCUP PO SCH (11:36)
[2022-01-07] MEDS: ALPRAZolam 0.25 MG TAB PO PRN (17:02)
[2022-01-07] MEDS: Zolpidem Tartrate 5 MG TAB PO PRN (20:48)
[2022-01-07] MEDS: OLANZapine 5 MG TAB PO SCH (20:49)
[2022-01-07] MEDS: Cholecalciferol 1,000 UNITS (25 MCG) TAB PO SCH (20:49)
[2022-01-08] MEDS: ALPRAZolam 0.25 MG TAB PO PRN ×2 (02:04→16:53)
[2022-01-08 05:56] LABS: #Monocytes 0.4 thou/uL (0.11-0.59); #Neutrophils 1.7 thou/uL (1.40-6.50); %Basophils 0.4 % (0.0-1.0); %Eosinophils 0.6 % (0.0-10.0); %Lymphocytes 32.2 % (21.0-51.0); %Monocytes 13.5 % (0.0-10.0); %Neutrophils 53.3 % (42.0-75.0); Hemoglobin 8.8 g/dL (12.0-16.0); Mean Corpuscular HGB CONC 30.9 g/dL (32.0-36.0); Mean Corpuscular Hemoglobin 24.3 pg (27.0-31.0); Mean Corpuscular Volume 78.9 fL (78.0-98.0); Mean Platelet Volume 8.8 fL (7.4-10.4); Platelet Count 216 thou/uL (130-400); RBC Distribution Width 17.4 % (11.5-14.5); Red Blood Cell (RBC) Count 3.61 mill/uL (4.20-5.40); White Blood Cell (WBC) Count 3.2 thou/uL (4.8-10.8)
[2022-01-08 06:19] LABS: Anion Gap 11 mmol/L (10-20); BUN (Urea Nitrogen) 11 mg/dL (7.0-18.7); Calc. Creatinine Clearance 73 mL/min (70-130); Calcium 8.6 mg/dL (7.8-10.44); Carbon Dioxide 28 mmol/L (22-29); Chloride 101 mmol/L (98-107); Glucose 100 mg/dL (70-105); Magnesium 1.6 mg/dL (1.6-2.6); Sodium 136 mmol/L (136-145)
[2022-01-08] MEDS ORDERED: Magnesium 2 GM/50 ML 2 GM in Premix Bag 1 BAG IVPB SCH (07:30)
[2022-01-08] MEDS: Potassium Chloride 20 MEQ TAB PO SCH ×2 (07:36→15:47)
[2022-01-08] MEDS: SMX/TMP 800-160mg/20 ML UDCUP PO SCH (07:37)
[2022-01-08] MEDS: Nicotine 7 MG PATCH TD SCH (07:37)
[2022-01-08] MEDS: Fluconazole 100 MG TAB PO SCH (07:37)
[2022-01-08] MEDS: Pregabalin 25 MG CAP PO SCH ×2 (08:53→21:14)
[2022-01-08] MEDS: Cholecalciferol 1,000 UNITS (25 MCG) TAB PO SCH (21:14)
[2022-01-08] MEDS: OLANZapine 5 MG TAB PO SCH (21:14)
[2022-01-08] MEDS: Zolpidem Tartrate 5 MG TAB PO PRN (21:18)
[2022-01-09 06:21] LABS: Magnesium 1.7 mg/dL (1.6-2.6)
[2022-01-09] MEDS ORDERED: Magnesium 2 GM/50 ML 2 GM in Premix Bag 1 BAG IVPB SCH (08:00)
[2022-01-09 08:35] VITALS: BP 110/66; TEMP 98.6
[2022-01-09] MEDS: Nicotine 7 MG PATCH TD SCH (10:04)
[2022-01-09] MEDS: Potassium Chloride 20 MEQ TAB PO SCH (10:04)
[2022-01-09] MEDS: Pregabalin 25 MG CAP PO SCH (10:04)
[2022-01-09] MEDS: Fluconazole 100 MG TAB PO SCH (10:04)
[2022-01-09] MEDS: SMX/TMP 800-160mg/20 ML UDCUP PO SCH (10:05)
== END 2022-01-09 10:23 | disposition home or self-care (01) | DRG 974 ==
LOC: ERS 14:22 → T4-A 21:37
PROVIDERS: ADMIT Internal Medicine; ATTEND Internal Medicine
PROC: 8E0ZXY6 Isolation (ICD-10-PCS; principal; 2021-12-26)
DX: B20 Human immunodeficiency virus [HIV] disease (principal); E43 Unspecified severe protein-calorie malnutrition; U07.1 COVID-19; R64 Cachexia; Z68.1 Body mass index [BMI] 19.9 or less, adult; Z66 Do not resuscitate; F31.9 Bipolar disorder, unspecified; F41.9 Anxiety disorder, unspecified; E86.0 Dehydration; E87.6 Hypokalemia; D50.9 Iron deficiency anemia, unspecified; R13.19 Other dysphagia; K52.9 Noninfective gastroenteritis and colitis, unspecified; E83.42 Hypomagnesemia; K59.00 Constipation, unspecified; M25.552 Pain in left hip; Z88.8 Allergy status to other drugs, medicaments and biological substances; Z79.899 Other long term (current) drug therapy; Z98.51 Tubal ligation status; Z98.890 Other specified postprocedural states; Z80.8 Family history of malignant neoplasm of other organs or systems; Z83.3 Family history of diabetes mellitus; Z87.891 Personal history of nicotine dependence; Z59.00 Homelessness unspecified
CPT/HCPCS: 36415; 36416; 70450; 71045; 74177; 80048; 80053; 81003; 81015; 81025; 83605; 83630; 83690; 83735; 84100; 84132; 85025; 85048; 86140; 86361; 86769; 87015; 87040; 87045; 87046; 87086; 87206; 87328; 87329; 87427; 87449; 87899; 96374; 96375; 96376; C9113; C9399; J1200; J1450; J1885; J2270; J2405; J3475; J3480; J3490; J7050; Q0162; U0003; U0005

== ENCOUNTER 2022-06-09 15:57 | Emergency (ER) | payer MEDICARE, MEDICAID ==
[2022-06-09 17:44] LABS: Hemoglobin 10.2 g/dL (12.0-16.0); Mean Corpuscular HGB CONC 31.2 g/dL (32.0-36.0); Mean Corpuscular Hemoglobin 23.3 pg (27.0-31.0); Mean Corpuscular Volume 74.8 fL (78.0-98.0); Mean Platelet Volume 11.9 fL (7.4-10.4); Platelet Count 160 thou/uL (130-400); RBC Distribution Width 16.5 % (11.5-14.5); Red Blood Cell (RBC) Count 4.39 mill/uL (4.20-5.40); White Blood Cell (WBC) Count 1.9 thou/uL (4.8-10.8)
[2022-06-09 18:03] LABS: #Lymphocytes 0.6 thou/uL (1.20-3.40); #Monocytes 0.3 thou/uL (0.11-0.59); %Basophils 0.2 % (0.0-1.0); %Eosinophils 0.3 % (0.0-10.0); %Lymphocytes 31.1 % (21.0-51.0); %Monocytes 14.1 % (0.0-10.0); %Neutrophils 54.4 % (42.0-75.0); ALT (SGPT) Less than 7 U/L (8-55); AST (SGOT) 17 U/L (5-34); Alkaline Phosphatase 67 U/L (40-110); Anion Gap 14 mmol/L (10-20); BUN (Urea Nitrogen) 6 mg/dL (7.0-18.7); Bilirubin, Total 0.3 mg/dL (0.2-1.2); Calc. Creatinine Clearance 0 mL/min (70-130); Calcium 9.3 mg/dL (7.8-10.44); Carbon Dioxide 22 mmol/L (22-29); Chloride 105 mmol/L (98-107); Estimated GFR 99; Globulin 4.1 g/dL (2.4-3.5); Glucose 74 mg/dL (70-105); Potassium 3.5 mmol/L (3.5-5.1); Protein, Total 8.1 g/dL (6.0-8.3); Reflex for Review?? YES; Sodium 137 mmol/L (136-145)
[2022-06-09 18:04] LABS: Anisocytosis SLIGHT = 6-15 cells (100X) (0-5/hpf); Hypochromia SLIGHT = 6-15 cells (100X) (0-5/hpf); MDiff Complete? YES; Microcytosis SLIGHT = 6-15 cells (100X) (0-5/hpf); Ovalocytes SLIGHT = 2-5 cells (100X) (0-1/hpf); Platelet Morphology Comment Appears Adequate; Polychromasia SLIGHT = 2-3 cells (100X) (0-2/hpf); Target Cells SLIGHT = 2-5 cells (100X) (0-1/hpf)
== END 2022-06-09 18:30 | disposition home or self-care (01) ==
LOC: ERS 15:57
DX: M54.16 Radiculopathy, lumbar region (principal); D72.819 Decreased white blood cell count, unspecified; B20 Human immunodeficiency virus [HIV] disease; R20.2 Paresthesia of skin; F17.210 Nicotine dependence, cigarettes, uncomplicated; Z79.899 Other long term (current) drug therapy
CPT/HCPCS: 36415; 70450; 80053; 85025; 85060

== ENCOUNTER 2022-06-18 12:37 | Emergency (ER) | payer MEDICARE, MEDICAID ==
[2022-06-18] MEDS ORDERED: Promethazine 25 MG TAB ONE (14:04)
== END 2022-06-18 14:08 | disposition home or self-care (01) ==
LOC: ERS 12:37
DX: L03.211 Cellulitis of face (principal); M19.042 Primary osteoarthritis, left hand; Z21 Asymptomatic human immunodeficiency virus [HIV] infection status; F17.210 Nicotine dependence, cigarettes, uncomplicated
CPT/HCPCS: 99283; Q0169

== ENCOUNTER 2022-07-23 13:00 | Emergency (ER) | payer MEDICARE, MEDICAID | END 2022-07-23 13:17 | disposition left against medical advice (07) | LOC: ERS 13:00 | DX: Z53.21 Procedure and treatment not carried out due to patient leaving prior to being seen by health care provider (principal) ==

== ENCOUNTER 2022-07-27 22:05 | Emergency (ER) | payer MEDICARE, OTHER | END 2022-07-27 22:33 | disposition left against medical advice (07) | LOC: ERS 22:05 | DX: Z53.21 Procedure and treatment not carried out due to patient leaving prior to being seen by health care provider (principal) ==

== ENCOUNTER 2022-07-28 09:29 | Emergency (ER) | payer MEDICARE, OTHER | END 2022-07-28 11:43 | disposition left against medical advice (07) | LOC: ERS 09:29 | DX: S00.03XA Contusion of scalp, initial encounter (principal); F17.210 Nicotine dependence, cigarettes, uncomplicated; Z53.8 Procedure and treatment not carried out for other reasons; Y04.0XXA Assault by unarmed brawl or fight, initial encounter | CPT/HCPCS: 99284 ==

== ENCOUNTER 2022-12-08 10:52 | Inpatient (IN) | payer MEDICARE, MEDICAID ==
[~2022-12-08 10:52] MED LIST changes: -ISOVUE-370 76%-LOCM 1 ML ONE; +Iopamidol-370 76% 500 ML 1 ML ONE
[2022-12-08 13:20] LABS: #Lymphocytes 0.7 thou/uL (1.20-3.40); #Monocytes 0.3 thou/uL (0.11-0.59); #Neutrophils 1.6 thou/uL (1.40-6.50); %Eosinophils 0.7 % (0.0-10.0); %Lymphocytes 26.9 % (21.0-51.0); %Monocytes 10.6 % (0.0-10.0); %Neutrophils 61.8 % (42.0-75.0); Hemoglobin 10.6 g/dL (12.0-16.0); Mean Corpuscular HGB CONC 32.5 g/dL (32.0-36.0); Mean Corpuscular Hemoglobin 27.6 pg (27.0-31.0); Mean Corpuscular Volume 84.9 fl (78.0-98.0); Platelet Count 208 10x3/uL (130-400); Red Blood Cell (RBC) Count 3.83 mill/uL (4.20-5.40); White Blood Cell (WBC) Count 2.6 10x3/uL (4.8-10.8)
[2022-12-08 13:33] LABS: ALT (SGPT) 9 U/L (8-55); AST (SGOT) 20 U/L (5-34); Albumin 3.4 g/dL (3.5-5.0); Alkaline Phosphatase 64 U/L (40-110); Anion Gap 13 mmol/L (10-20); BUN (Urea Nitrogen) 8 mg/dL (7.0-18.7); Bilirubin, Total 0.4 mg/dL (0.2-1.2); CK (CPK) 45 U/L (29-168); Calc. Creatinine Clearance 0 mL/min (70-130); Calcium 9.6 mg/dL (7.8-10.44); Carbon Dioxide 24 mmol/L (22-29); Chloride 105 mmol/L (98-107); Estimated GFR 109; Glucose 81 mg/dL (70-105); Potassium 3.8 mmol/L (3.5-5.1); Protein, Total 7.4 g/dL (6.0-8.3); Sodium 138 mmol/L (136-145)
[2022-12-08] MEDS ORDERED: Morphine 4 MG/ML VIAL ONE (13:57)
[2022-12-08] MEDS ORDERED: Vancomycin 1 GM/200 ML (FROZEN) BAG ONE (15:03)
[2022-12-08] MEDS ORDERED: Cefepime 2 GM VIAL ONE (15:03)
[2022-12-08] MEDS ORDERED: Acetaminophen 325 MG TAB PO PRN (15:25)
[2022-12-08] MEDS ORDERED: Ondansetron ODT 4 MG TAB PO PRN (15:25)
[2022-12-08] MEDS ORDERED: Ondansetron PF 4 MG/2 ML Vial IVP PRN (15:25)
[2022-12-08] MEDS ORDERED: Benzonatate 100 MG CAP PO PRN (15:45)
[2022-12-08 18:28] VITALS: BMI 14.1
[2022-12-08] MEDS: Morphine 2 MG/ML VIAL SLOW IVP PRN (18:35)
[2022-12-08] MEDS: Sodium Chloride 0.9% 1,000 ML IV SCH (18:37)
[2022-12-08] MEDS: Diclofenac 1% 100 GM GEL TP SCH ×2 (20:27→20:28)
[2022-12-08] MEDS: Gabapentin 300 MG CAP PO SCH ×2 (20:29)
[2022-12-09] MEDS: Vancomycin HCl 500 MG in Sodium Chloride 0.9% 100 ML IVPB SCH ×2 (03:26→16:39)
[2022-12-09] MEDS ORDERED: Sodium Chloride 0.9% 500 ML IV SCH (04:15)
[2022-12-09] MEDS: Morphine 2 MG/ML VIAL SLOW IVP PRN ×4 (04:52→22:44)
[2022-12-09] MEDS: Diclofenac 1% 100 GM GEL TP SCH ×4 (09:08→19:58)
[2022-12-09] MEDS: Escitalopram Oxalate 20 mg Tablet PO SCH (09:10)
[2022-12-09] MEDS: OLANZapine 5 MG TAB PO SCH (09:10)
[2022-12-09] MEDS: Gabapentin 300 MG CAP PO SCH ×3 (09:10→19:53)
[2022-12-09] MEDS ORDERED: Magnevist 469MG/ML 20 ML VIAL ONE (10:22)
[2022-12-09 12:37] LABS: #Lymphocytes 0.7 thou/uL (1.20-3.40); #Monocytes 0.2 thou/uL (0.11-0.59); #Neutrophils 1.5 thou/uL (1.40-6.50); %Basophils 0.3 % (0.0-1.0); %Eosinophils 1.2 % (0.0-10.0); %Lymphocytes 27.8 % (21.0-51.0); %Monocytes 7.9 % (0.0-10.0); %Neutrophils 62.8 % (42.0-75.0); Hemoglobin 9.1 g/dL (12.0-16.0); Mean Corpuscular HGB CONC 33.8 g/dL (32.0-36.0); Mean Corpuscular Hemoglobin 28.9 pg (27.0-31.0); Mean Corpuscular Volume 85.4 fl (78.0-98.0); Mean Platelet Volume 8.2 fL (7.4-10.4); Platelet Count 175 10x3/uL (130-400); RBC Distribution Width 17.7 % (11.5-14.5); Red Blood Cell (RBC) Count 3.15 mill/uL (4.20-5.40); White Blood Cell (WBC) Count 2.4 10x3/uL (4.8-10.8)
[2022-12-09 12:52] LABS: Anion Gap 11 mmol/L (10-20); BUN (Urea Nitrogen) 7 mg/dL (7.0-18.7); Calc. Creatinine Clearance 72 mL/min (70-130); Calcium 8.5 mg/dL (7.8-10.44); Carbon Dioxide 21 mmol/L (22-29); Chloride 112 mmol/L (98-107); Estimated GFR 113; Glucose 99 mg/dL (70-105); Potassium 3.7 mmol/L (3.5-5.1); Sodium 140 mmol/L (136-145)
[2022-12-09] MEDS: Sodium Chloride 0.9% 1,000 ML IV SCH (14:40)
[2022-12-09] MEDS: HYDROcodone/Acetaminophen 5/325 mg Tablet PO PRN (19:52)
[2022-12-10 05:11] LABS: #Lymphocytes 0.8 thou/uL (1.20-3.40); #Monocytes 0.3 thou/uL (0.11-0.59); %Basophils 0.1 % (0.0-1.0); %Eosinophils 0.3 % (0.0-10.0); %Lymphocytes 25.8 % (21.0-51.0); %Monocytes 9.9 % (0.0-10.0); %Neutrophils 63.9 % (42.0-75.0); Hemoglobin 9.5 g/dL (12.0-16.0); Mean Corpuscular HGB CONC 33.4 g/dL (32.0-36.0); Mean Corpuscular Hemoglobin 28.2 pg (27.0-31.0); Mean Corpuscular Volume 84.4 fl (78.0-98.0); Mean Platelet Volume 8.3 fL (7.4-10.4); Platelet Count 204 10x3/uL (130-400); RBC Distribution Width 17.7 % (11.5-14.5); Red Blood Cell (RBC) Count 3.37 mill/uL (4.20-5.40); White Blood Cell (WBC) Count 3.1 10x3/uL (4.8-10.8)
[2022-12-10 05:26] LABS: Vancomycin, Trough 4.5 ug/mL
[2022-12-10 05:28] LABS: Anion Gap 13 mmol/L (10-20); BUN (Urea Nitrogen) 6 mg/dL (7.0-18.7); Calc. Creatinine Clearance 68 mL/min (70-130); Calcium 8.7 mg/dL (7.8-10.44); Carbon Dioxide 21 mmol/L (22-29); Chloride 111 mmol/L (98-107); Estimated GFR 111; Glucose 94 mg/dL (70-105); Potassium 3.6 mmol/L (3.5-5.1); Sodium 141 mmol/L (136-145)
[2022-12-10] MEDS: Vancomycin HCl 500 MG in Sodium Chloride 0.9% 100 ML IVPB SCH (05:50)
[2022-12-10] MEDS: Vancomycin HCl 750 MG in Sodium Chloride 0.9% 250 ML 250 ML IVPB SCH ×3 (05:55→21:37)
[2022-12-10] MEDS: Sodium Chloride 0.9% 1,000 ML IV SCH ×2 (05:57→08:14)
[2022-12-10] MEDS: Morphine 2 MG/ML VIAL SLOW IVP PRN ×2 (06:00→21:56)
[2022-12-10] MEDS: Gabapentin 300 MG CAP PO SCH ×3 (08:14→21:38)
[2022-12-10] MEDS: Diclofenac 1% 100 GM GEL TP SCH ×4 (08:15→21:39)
[2022-12-10] MEDS: Escitalopram Oxalate 20 mg Tablet PO SCH (08:15)
[2022-12-10] MEDS: HYDROcodone/Acetaminophen 5/325 mg Tablet PO PRN ×2 (08:23→13:45)
[2022-12-10] MEDS: OLANZapine 5 MG TAB PO SCH (08:24)
[2022-12-11] MEDS: Sodium Chloride 0.9% 1,000 ML IV SCH (05:56)
[2022-12-11 06:31] LABS: #Lymphocytes 0.5 thou/uL (1.20-3.40); #Monocytes 0.2 thou/uL (0.11-0.59); #Neutrophils 1.3 thou/uL (1.40-6.50); %Eosinophils 1.4 % (0.0-10.0); %Lymphocytes 24.7 % (21.0-51.0); %Monocytes 10.1 % (0.0-10.0); %Neutrophils 63.8 % (42.0-75.0); Hemoglobin 9.8 g/dL (12.0-16.0); Mean Corpuscular HGB CONC 33.8 g/dL (32.0-36.0); Mean Corpuscular Hemoglobin 28.8 pg (27.0-31.0); Mean Corpuscular Volume 85.1 fl (78.0-98.0); Mean Platelet Volume 8.6 fL (7.4-10.4); Platelet Count 182 10x3/uL (130-400); RBC Distribution Width 17.9 % (11.5-14.5); Red Blood Cell (RBC) Count 3.41 mill/uL (4.20-5.40); White Blood Cell (WBC) Count 2.1 10x3/uL (4.8-10.8)
[2022-12-11 06:50] LABS: Vancomycin, Trough 10.1 ug/mL
[2022-12-11 06:54] LABS: Anion Gap 13 mmol/L (10-20); BUN (Urea Nitrogen) 5 mg/dL (7.0-18.7); Calc. Creatinine Clearance 66 mL/min (70-130); Calcium 8.8 mg/dL (7.8-10.44); Carbon Dioxide 22 mmol/L (22-29); Chloride 109 mmol/L (98-107); Estimated GFR 110; Glucose 137 mg/dL (70-105); Potassium 3.5 mmol/L (3.5-5.1); Sodium 140 mmol/L (136-145)
[2022-12-11] MEDS: Vancomycin HCl 750 MG in Sodium Chloride 0.9% 250 ML 250 ML IVPB SCH ×4 (07:22→20:25)
[2022-12-11] MEDS: Diclofenac 1% 100 GM GEL TP SCH ×4 (09:00→21:00)
[2022-12-11] MEDS: Gabapentin 300 MG CAP PO SCH ×3 (11:28→20:26)
[2022-12-11] MEDS: Escitalopram Oxalate 20 mg Tablet PO SCH (11:29)
[2022-12-11] MEDS: Morphine 2 MG/ML VIAL SLOW IVP PRN ×3 (11:33→22:17)
[2022-12-11] MEDS: OLANZapine 5 MG TAB PO SCH ×2 (11:45→22:16)
[2022-12-12] MEDS: Sodium Chloride 0.9% 1,000 ML IV SCH ×2 (00:31→16:46)
[2022-12-12 01:02] LABS: Vancomycin, Trough 24.6 ug/mL
[2022-12-12] MEDS ORDERED: Piperacillin/Tazobactam 3.375 GM in Sodium Chloride 0.9% 100 ML IVPB SCH (02:00)
[2022-12-12] MEDS: Vancomycin HCl 750 MG in Sodium Chloride 0.9% 250 ML 250 ML IVPB SCH ×4 (02:10→17:41)
[2022-12-12] MEDS: Piperacillin/Tazobactam 3.375 GM in Sodium Chloride 0.9% 100 ML IVPB SCH ×4 (02:16→21:55)
[2022-12-12] MEDS: Morphine 2 MG/ML VIAL SLOW IVP PRN ×3 (02:22→22:06)
[2022-12-12] MEDS: Gabapentin 300 MG CAP PO SCH ×3 (08:01→21:55)
[2022-12-12] MEDS: Escitalopram Oxalate 20 mg Tablet PO SCH (08:01)
[2022-12-12] MEDS: Diclofenac 1% 100 GM GEL TP SCH ×4 (08:02→22:04)
[2022-12-12 10:30] LABS: #Lymphocytes 0.7 thou/uL (1.20-3.40); #Monocytes 0.3 thou/uL (0.11-0.59); %Basophils 0.8 % (0.0-1.0); %Eosinophils 1.9 % (0.0-10.0); %Lymphocytes 35.8 % (21.0-51.0); %Monocytes 12.9 % (0.0-10.0); %Neutrophils 48.6 % (42.0-75.0); Hemoglobin 9.6 g/dL (12.0-16.0); Mean Corpuscular HGB CONC 32.8 g/dL (32.0-36.0); Mean Corpuscular Hemoglobin 28.2 pg (27.0-31.0); Mean Corpuscular Volume 86.1 fl (78.0-98.0); Mean Platelet Volume 8.3 fL (7.4-10.4); Platelet Count 188 10x3/uL (130-400); RBC Distribution Width 17.7 % (11.5-14.5); Red Blood Cell (RBC) Count 3.38 mill/uL (4.20-5.40)
[2022-12-12 10:55] LABS: Anion Gap 9 mmol/L (10-20); BUN (Urea Nitrogen) Less than 4 mg/dL (7.0-18.7); Calc. Creatinine Clearance 72 mL/min (70-130); Calcium 8.5 mg/dL (7.8-10.44); Carbon Dioxide 25 mmol/L (22-29); Chloride 111 mmol/L (98-107); Estimated GFR 113; Glucose 116 mg/dL (70-105); Potassium 3.4 mmol/L (3.5-5.1); Sodium 142 mmol/L (136-145)
[2022-12-12 14:14] LABS: %CD4 (Helper/Inducer) 6.3 % (30.8-58.5); Absolute CD4 25 /uL (359-1519); Lymphocytes/Gated Cell Count 0.4 x10E3/uL (0.7-3.1); Total Lymphocyte 21 % (Not Estab.)
[2022-12-12] MEDS: OLANZapine 5 MG TAB PO SCH (21:50)
[2022-12-13 02:01] LABS: Vancomycin, Trough 12.7 ug/mL
[2022-12-13] MEDS: Vancomycin HCl 750 MG in Sodium Chloride 0.9% 250 ML 250 ML IVPB SCH (03:00)
[2022-12-13] MEDS: Morphine 2 MG/ML VIAL SLOW IVP PRN ×3 (03:54→20:17)
[2022-12-13] MEDS: Piperacillin/Tazobactam 3.375 GM in Sodium Chloride 0.9% 100 ML IVPB SCH ×3 (05:44→22:23)
[2022-12-13 07:12] LABS: #Lymphocytes 0.7 thou/uL (1.20-3.40); #Monocytes 0.2 thou/uL (0.11-0.59); #Neutrophils 1.4 thou/uL (1.40-6.50); %Eosinophils 0.8 % (0.0-10.0); %Lymphocytes 31.8 % (21.0-51.0); %Monocytes 8.6 % (0.0-10.0); %Neutrophils 58.8 % (42.0-75.0); Hemoglobin 9.6 g/dL (12.0-16.0); Mean Corpuscular HGB CONC 34.5 g/dL (32.0-36.0); Mean Corpuscular Hemoglobin 29.5 pg (27.0-31.0); Mean Corpuscular Volume 85.5 fl (78.0-98.0); Mean Platelet Volume 8.7 fL (7.4-10.4); Platelet Count 169 10x3/uL (130-400); RBC Distribution Width 17.6 % (11.5-14.5); Red Blood Cell (RBC) Count 3.24 mill/uL (4.20-5.40); White Blood Cell (WBC) Count 2.3 10x3/uL (4.8-10.8)
[2022-12-13 07:29] LABS: Anion Gap 10 mmol/L (10-20); BUN (Urea Nitrogen) 4 mg/dL (7.0-18.7); Calc. Creatinine Clearance 66 mL/min (70-130); Calcium 8.6 mg/dL (7.8-10.44); Carbon Dioxide 25 mmol/L (22-29); Chloride 108 mmol/L (98-107); Estimated GFR 110; Glucose 146 mg/dL (70-105); Potassium 3.5 mmol/L (3.5-5.1); Sodium 139 mmol/L (136-145)
[2022-12-13] MEDS: HYDROcodone/Acetaminophen 5/325 mg Tablet PO PRN ×2 (08:58→22:20)
[2022-12-13] MEDS: Gabapentin 300 MG CAP PO SCH ×3 (08:58→22:21)
[2022-12-13] MEDS: Vancomycin HCl 500 MG in Sodium Chloride 0.9% 100 ML IVPB SCH ×3 (08:59→23:07)
[2022-12-13] MEDS: Diclofenac 1% 100 GM GEL TP SCH ×4 (08:59→22:22)
[2022-12-13] MEDS: Escitalopram Oxalate 20 mg Tablet PO SCH (09:00)
[2022-12-13] MEDS: Sodium Chloride 0.9% 1,000 ML IV SCH (15:31)
[2022-12-13 18:12] LABS: LOG10 HIV-1 RNA 5.274 (.)
[2022-12-13] MEDS: Senokot S 8.6-50 MG TAB PO SCH (22:23)
[2022-12-13] MEDS: OLANZapine 5 MG TAB PO SCH (22:24)
[2022-12-13 22:39] LABS: Vancomycin, Trough 10.4 ug/mL
[2022-12-14] MEDS: Vancomycin HCl 500 MG in Sodium Chloride 0.9% 100 ML IVPB SCH ×2 (05:48→12:52)
[2022-12-14] MEDS: Piperacillin/Tazobactam 3.375 GM in Sodium Chloride 0.9% 100 ML IVPB SCH ×3 (05:51→21:08)
[2022-12-14 06:04] LABS: #Lymphocytes 0.5 thou/uL (1.20-3.40); #Monocytes 0.2 thou/uL (0.11-0.59); #Neutrophils 1.8 thou/uL (1.40-6.50); %Eosinophils 0.7 % (0.0-10.0); %Lymphocytes 21.1 % (21.0-51.0); %Monocytes 8.7 % (0.0-10.0); %Neutrophils 69.5 % (42.0-75.0); Hemoglobin 9.1 g/dL (12.0-16.0); Mean Corpuscular HGB CONC 34.3 g/dL (32.0-36.0); Mean Corpuscular Hemoglobin 29.2 pg (27.0-31.0); Mean Corpuscular Volume 85.1 fl (78.0-98.0); Mean Platelet Volume 8.8 fL (7.4-10.4); Platelet Count 164 10x3/uL (130-400); RBC Distribution Width 17.5 % (11.5-14.5); Red Blood Cell (RBC) Count 3.12 mill/uL (4.20-5.40); White Blood Cell (WBC) Count 2.6 10x3/uL (4.8-10.8)
[2022-12-14] MEDS: Senokot S 8.6-50 MG TAB PO SCH ×2 (09:31→21:10)
[2022-12-14] MEDS: Escitalopram Oxalate 20 mg Tablet PO SCH (09:31)
[2022-12-14] MEDS: Gabapentin 300 MG CAP PO SCH ×3 (09:32→21:06)
[2022-12-14] MEDS: Diclofenac 1% 100 GM GEL TP SCH ×4 (09:32→20:35)
[2022-12-14 12:17] LABS: Vancomycin, Trough 11.7 ug/mL
[2022-12-14] MEDS: Vancomycin 1 GM in Premix Bag 1 BAG IVPB SCH (12:50)
[2022-12-14] MEDS: Sodium Chloride 0.9% 1,000 ML IV SCH (12:52)
[2022-12-14] MEDS: Morphine 2 MG/ML VIAL SLOW IVP PRN ×3 (14:34→23:52)
[2022-12-14] MEDS: HYDROcodone/Acetaminophen 5/325 mg Tablet PO PRN (21:07)
[2022-12-15] MEDS: Vancomycin 1 GM in Premix Bag 1 BAG IVPB SCH ×2 (00:37→13:06)
[2022-12-15] MEDS: OLANZapine 5 MG TAB PO SCH ×2 (00:44→20:05)
[2022-12-15] MEDS: Piperacillin/Tazobactam 3.375 GM in Sodium Chloride 0.9% 100 ML IVPB SCH ×3 (05:05→21:09)
[2022-12-15] MEDS: Morphine 2 MG/ML VIAL SLOW IVP PRN ×3 (05:08→18:18)
[2022-12-15 05:25] LABS: #Lymphocytes 0.7 thou/uL (1.20-3.40); #Monocytes 0.3 thou/uL (0.11-0.59); #Neutrophils 1.6 thou/uL (1.40-6.50); %Basophils 0.3 % (0.0-1.0); %Eosinophils 0.1 % (0.0-10.0); %Lymphocytes 26.7 % (21.0-51.0); %Monocytes 10.4 % (0.0-10.0); %Neutrophils 62.4 % (42.0-75.0); Hemoglobin 9.2 g/dL (12.0-16.0); Mean Corpuscular HGB CONC 33.3 g/dL (32.0-36.0); Mean Corpuscular Hemoglobin 28.3 pg (27.0-31.0); Mean Corpuscular Volume 84.9 fl (78.0-98.0); Mean Platelet Volume 8.7 fL (7.4-10.4); Platelet Count 158 10x3/uL (130-400); RBC Distribution Width 17.4 % (11.5-14.5); Red Blood Cell (RBC) Count 3.26 mill/uL (4.20-5.40); White Blood Cell (WBC) Count 2.5 10x3/uL (4.8-10.8)
[2022-12-15] MEDS: Diclofenac 1% 100 GM GEL TP SCH ×4 (08:54→20:08)
[2022-12-15] MEDS: Senokot S 8.6-50 MG TAB PO SCH ×2 (08:55→20:08)
[2022-12-15] MEDS: Gabapentin 300 MG CAP PO SCH ×3 (08:55→20:05)
[2022-12-15] MEDS: Sodium Chloride 0.9% 1,000 ML IV SCH ×2 (08:55→14:42)
[2022-12-15] MEDS: Escitalopram Oxalate 20 mg Tablet PO SCH (08:55)
[2022-12-15] MEDS: HYDROcodone/Acetaminophen 5/325 mg Tablet PO PRN ×2 (14:41→20:06)
[2022-12-16 00:32] LABS: Vancomycin, Trough 10.3 ug/mL
[2022-12-16] MEDS: Vancomycin 1 GM in Premix Bag 1 BAG IVPB SCH (01:19)
[2022-12-16] MEDS: Vancomycin HCl 750 MG in Sodium Chloride 0.9% 250 ML 250 ML IVPB SCH ×3 (01:32→18:22)
[2022-12-16] MEDS: Sodium Chloride 0.9% 1,000 ML IV SCH ×2 (04:58→21:27)
[2022-12-16] MEDS: Piperacillin/Tazobactam 3.375 GM in Sodium Chloride 0.9% 100 ML IVPB SCH ×3 (05:02→21:27)
[2022-12-16] MEDS: Morphine 2 MG/ML VIAL SLOW IVP PRN ×4 (05:12→22:54)
[2022-12-16 05:31] LABS: #Lymphocytes 0.5 thou/uL (1.20-3.40); #Monocytes 0.2 thou/uL (0.11-0.59); #Neutrophils 1.4 thou/uL (1.40-6.50); %Basophils 0.2 % (0.0-1.0); %Eosinophils 0.6 % (0.0-10.0); %Monocytes 8.1 % (0.0-10.0); %Neutrophils 67.1 % (42.0-75.0); Mean Corpuscular HGB CONC 33.7 g/dL (32.0-36.0); Mean Corpuscular Hemoglobin 28.7 pg (27.0-31.0); Mean Corpuscular Volume 85.2 fl (78.0-98.0); Mean Platelet Volume 8.9 fL (7.4-10.4); Platelet Count 157 10x3/uL (130-400); RBC Distribution Width 17.8 % (11.5-14.5); Red Blood Cell (RBC) Count 3.48 mill/uL (4.20-5.40); White Blood Cell (WBC) Count 2.1 10x3/uL (4.8-10.8)
[2022-12-16] MEDS: Diclofenac 1% 100 GM GEL TP SCH ×4 (07:31→21:27)
[2022-12-16] MEDS: Senokot S 8.6-50 MG TAB PO SCH ×3 (08:18→21:26)
[2022-12-16] MEDS: Escitalopram Oxalate 20 mg Tablet PO SCH ×2 (08:18→10:04)
[2022-12-16] MEDS: Gabapentin 300 MG CAP PO SCH ×3 (08:18→21:26)
[2022-12-16 08:54] LABS: BUN (Urea Nitrogen) Less than 4 mg/dL (7.0-18.7); Calc. Creatinine Clearance 68 mL/min (70-130); Estimated GFR 111
[2022-12-16] MEDS: HYDROcodone/Acetaminophen 5/325 mg Tablet PO PRN (21:24)
[2022-12-16] MEDS: OLANZapine 5 MG TAB PO SCH (21:25)
[2022-12-17 02:26] LABS: Vancomycin, Trough 13.3 ug/mL
[2022-12-17] MEDS: Morphine 2 MG/ML VIAL SLOW IVP PRN ×4 (04:15→21:36)
[2022-12-17] MEDS: Vancomycin HCl 750 MG in Sodium Chloride 0.9% 250 ML 250 ML IVPB SCH ×5 (04:15→22:50)
[2022-12-17] MEDS: Piperacillin/Tazobactam 3.375 GM in Sodium Chloride 0.9% 100 ML IVPB SCH ×3 (05:56→21:39)
[2022-12-17] MEDS: Diclofenac 1% 100 GM GEL TP SCH ×4 (07:23→20:22)
[2022-12-17] MEDS: Escitalopram Oxalate 20 mg Tablet PO SCH (07:23)
[2022-12-17] MEDS: Senokot S 8.6-50 MG TAB PO SCH ×2 (07:24→20:24)
[2022-12-17] MEDS: Gabapentin 300 MG CAP PO SCH ×3 (09:44→20:22)
[2022-12-17] MEDS: HYDROcodone/Acetaminophen 5/325 mg Tablet PO PRN ×2 (09:46→20:23)
[2022-12-17] MEDS ORDERED: GUAIFENESIN SF SOLN 200 MG/10 ML UDCUP PO PRN (14:00)
[2022-12-17] MEDS: Sodium Chloride 0.9% 1,000 ML IV SCH (20:22)
[2022-12-17] MEDS: OLANZapine 5 MG TAB PO SCH (20:23)
[2022-12-17 22:46] LABS: #Lymphocytes 0.5 thou/uL (1.20-3.40); #Monocytes 0.2 thou/uL (0.11-0.59); #Neutrophils 2.6 thou/uL (1.40-6.50); %Basophils 0.4 % (0.0-1.0); %Lymphocytes 14.4 % (21.0-51.0); %Monocytes 5.5 % (0.0-10.0); %Neutrophils 79.7 % (42.0-75.0); Hemoglobin 9.9 g/dL (12.0-16.0); Mean Corpuscular HGB CONC 32.5 g/dL (32.0-36.0); Mean Corpuscular Hemoglobin 27.6 pg (27.0-31.0); Mean Platelet Volume 9.1 fL (7.4-10.4); Platelet Count 143 10x3/uL (130-400); RBC Distribution Width 17.3 % (11.5-14.5); Red Blood Cell (RBC) Count 3.57 mill/uL (4.20-5.40); White Blood Cell (WBC) Count 3.3 10x3/uL (4.8-10.8)
[2022-12-17 23:04] LABS: Lactic Acid 1.9 mmol/L (0.5-2.2)
[2022-12-17 23:08] LABS: Vancomycin, Trough 20.9 ug/mL
[2022-12-17 23:10] LABS: ALT (SGPT) 7 U/L (8-55); AST (SGOT) 19 U/L (5-34); Albumin 3.4 g/dL (3.5-5.0); Alkaline Phosphatase 58 U/L (40-110); Anion Gap 13 mmol/L (10-20); BUN (Urea Nitrogen) 5 mg/dL (7.0-18.7); Bilirubin, Total 0.3 mg/dL (0.2-1.2); Calc. Creatinine Clearance 59 mL/min (70-130); Calcium 8.8 mg/dL (7.8-10.44); Carbon Dioxide 24 mmol/L (22-29); Chloride 104 mmol/L (98-107); Estimated GFR 107; Globulin 3.6 g/dL (2.4-3.5); Glucose 135 mg/dL (70-105); Magnesium 1.6 mg/dL (1.6-2.6); Potassium 3.7 mmol/L (3.5-5.1); Sodium 137 mmol/L (136-145)
[2022-12-18] MEDS: Morphine 2 MG/ML VIAL SLOW IVP PRN ×4 (02:52→22:14)
[2022-12-18] MEDS: Vancomycin HCl 500 MG in Sodium Chloride 0.9% 100 ML IVPB SCH ×2 (03:00→09:27)
[2022-12-18] MEDS: Piperacillin/Tazobactam 3.375 GM in Sodium Chloride 0.9% 100 ML IVPB SCH ×3 (05:41→22:13)
[2022-12-18] MEDS: Acetaminophen 325 MG TAB PO PRN (05:47)
[2022-12-18] MEDS: Diclofenac 1% 100 GM GEL TP SCH ×4 (07:43→22:19)
[2022-12-18] MEDS: Escitalopram Oxalate 20 mg Tablet PO SCH (07:43)
[2022-12-18] MEDS: HYDROcodone/Acetaminophen 5/325 mg Tablet PO PRN ×2 (09:27→19:48)
[2022-12-18] MEDS: Gabapentin 300 MG CAP PO SCH ×4 (09:27→19:47)
[2022-12-18] MEDS: Senokot S 8.6-50 MG TAB PO SCH ×2 (09:28→22:20)
[2022-12-18] MEDS: Sodium Chloride 0.9% 1,000 ML IV SCH (14:42)
[2022-12-18] MEDS: OLANZapine 5 MG TAB PO SCH (22:15)
[2022-12-19] MEDS: Piperacillin/Tazobactam 3.375 GM in Sodium Chloride 0.9% 100 ML IVPB SCH ×3 (05:08→21:31)
[2022-12-19] MEDS: Diclofenac 1% 100 GM GEL TP SCH ×4 (07:29→20:00)
[2022-12-19] MEDS: Escitalopram Oxalate 20 mg Tablet PO SCH (07:30)
[2022-12-19] MEDS: Senokot S 8.6-50 MG TAB PO SCH ×2 (07:35→20:00)
[2022-12-19] MEDS: Acetaminophen 325 MG TAB PO PRN ×2 (07:56→23:50)
[2022-12-19] MEDS: Gabapentin 300 MG CAP PO SCH ×3 (07:56→19:50)
[2022-12-19] MEDS: Sodium Chloride 0.9% 1,000 ML IV SCH ×2 (13:58→23:50)
[2022-12-19] MEDS: Morphine 2 MG/ML VIAL SLOW IVP PRN ×2 (16:09→21:31)
[2022-12-19] MEDS: HYDROcodone/Acetaminophen 5/325 mg Tablet PO PRN (19:49)
[2022-12-19] MEDS: OLANZapine 5 MG TAB PO SCH (19:53)
[2022-12-20] MEDS: Morphine 2 MG/ML VIAL SLOW IVP PRN ×4 (04:20→19:23)
[2022-12-20 05:12] LABS: #Lymphocytes 0.7 thou/uL (1.20-3.40); #Monocytes 0.2 thou/uL (0.11-0.59); #Neutrophils 2.3 thou/uL (1.40-6.50); %Basophils 0.2 % (0.0-1.0); %Eosinophils 0.1 % (0.0-10.0); %Lymphocytes 22.3 % (21.0-51.0); %Monocytes 7.1 % (0.0-10.0); %Neutrophils 70.3 % (42.0-75.0); Hemoglobin 9.7 g/dL (12.0-16.0); Mean Corpuscular HGB CONC 33.3 g/dL (32.0-36.0); Mean Corpuscular Hemoglobin 28.2 pg (27.0-31.0); Mean Corpuscular Volume 84.6 fl (78.0-98.0); Mean Platelet Volume 9.4 fL (7.4-10.4); Platelet Count 134 10x3/uL (130-400); RBC Distribution Width 16.9 % (11.5-14.5); Red Blood Cell (RBC) Count 3.44 mill/uL (4.20-5.40); White Blood Cell (WBC) Count 3.3 10x3/uL (4.8-10.8)
[2022-12-20] MEDS: Piperacillin/Tazobactam 3.375 GM in Sodium Chloride 0.9% 100 ML IVPB SCH ×3 (05:15→21:52)
[2022-12-20 05:28] LABS: Anion Gap 14 mmol/L (10-20); BUN (Urea Nitrogen) 7 mg/dL (7.0-18.7); Calc. Creatinine Clearance 60 mL/min (70-130); Carbon Dioxide 24 mmol/L (22-29); Chloride 105 mmol/L (98-107); Estimated GFR 108; Glucose 112 mg/dL (70-105); Potassium 3.5 mmol/L (3.5-5.1); Sodium 139 mmol/L (136-145)
[2022-12-20] MEDS: Senokot S 8.6-50 MG TAB PO SCH ×2 (07:59→21:07)
[2022-12-20] MEDS: Diclofenac 1% 100 GM GEL TP SCH ×4 (07:59→21:06)
[2022-12-20] MEDS: Escitalopram Oxalate 20 mg Tablet PO SCH (07:59)
[2022-12-20] MEDS: Sodium Chloride 0.9% 1,000 ML IV SCH ×2 (07:59→21:53)
[2022-12-20] MEDS: Gabapentin 300 MG CAP PO SCH ×3 (08:28→20:10)
[2022-12-20] MEDS: HYDROcodone/Acetaminophen 5/325 mg Tablet PO PRN ×2 (09:53→23:57)
[2022-12-20] MEDS: OLANZapine 5 MG TAB PO SCH (20:10)
[2022-12-20] MEDS: Acetaminophen 325 MG TAB PO PRN (20:37)
[2022-12-21] MEDS: Morphine 2 MG/ML VIAL SLOW IVP PRN ×4 (01:05→21:14)
[2022-12-21] MEDS ORDERED: Ibuprofen 200 MG TAB PO PRN (01:24)
[2022-12-21] MEDS: Acetaminophen 325 MG TAB PO PRN ×2 (04:36→21:08)
[2022-12-21] MEDS ORDERED: VANCOMYCIN 1.25 GM/250 ML BAG 1.25 GM in Premix Bag 1 BAG IVPB SCH (05:45)
[2022-12-21] MEDS ORDERED: VANCOMYCIN IVPB PRN (05:45)
[2022-12-21] MEDS ORDERED: Vancomycin HCl 750 MG in Sodium Chloride 0.9% 250 ML 250 ML IVPB SCH (06:00)
[2022-12-21] MEDS: Piperacillin/Tazobactam 3.375 GM in Sodium Chloride 0.9% 100 ML IVPB SCH ×3 (06:04→22:00)
[2022-12-21 06:31] LABS: Lactic Acid 1.3 mmol/L (0.5-2.2)
[2022-12-21 06:33] LABS: ALT (SGPT) 10 U/L (8-55); AST (SGOT) 28 U/L (5-34); Albumin 3.2 g/dL (3.5-5.0); Alkaline Phosphatase 47 U/L (40-110); Anion Gap 14 mmol/L (10-20); BUN (Urea Nitrogen) 5 mg/dL (7.0-18.7); Bilirubin, Total 0.4 mg/dL (0.2-1.2); Calc. Creatinine Clearance 60 mL/min (70-130); Calcium 8.6 mg/dL (7.8-10.44); Carbon Dioxide 23 mmol/L (22-29); Chloride 105 mmol/L (98-107); Estimated GFR 108; Globulin 3.7 g/dL (2.4-3.5); Glucose 113 mg/dL (70-105); Potassium 3.7 mmol/L (3.5-5.1); Protein, Total 6.9 g/dL (6.0-8.3); Sodium 138 mmol/L (136-145)
[2022-12-21] MEDS: Gabapentin 300 MG CAP PO SCH ×3 (08:22→20:15)
[2022-12-21] MEDS: Senokot S 8.6-50 MG TAB PO SCH ×2 (08:22→20:15)
[2022-12-21] MEDS: Escitalopram Oxalate 20 mg Tablet PO SCH (08:22)
[2022-12-21] MEDS: Diclofenac 1% 100 GM GEL TP SCH ×4 (08:27→21:58)
[2022-12-21] MEDS: OLANZapine 5 MG TAB PO SCH (20:15)
[2022-12-22] MEDS: Sodium Chloride 0.9% 1,000 ML IV SCH (04:31)
[2022-12-22] MEDS: Acetaminophen 325 MG TAB PO PRN ×2 (04:58→05:43)
[2022-12-22] MEDS: Piperacillin/Tazobactam 3.375 GM in Sodium Chloride 0.9% 100 ML IVPB SCH ×3 (04:59→21:21)
[2022-12-22] MEDS: Morphine 2 MG/ML VIAL SLOW IVP PRN ×3 (05:43→20:01)
[2022-12-22 06:11] LABS: Vancomycin, Trough Less than 1.1 ug/mL
[2022-12-22] MEDS: Diclofenac 1% 100 GM GEL TP SCH ×4 (07:13→21:27)
[2022-12-22] MEDS: Escitalopram Oxalate 20 mg Tablet PO SCH (08:22)
[2022-12-22] MEDS: Senokot S 8.6-50 MG TAB PO SCH ×2 (08:22→21:28)
[2022-12-22] MEDS: Gabapentin 300 MG CAP PO SCH ×3 (08:22→21:28)
[2022-12-22] MEDS: HYDROcodone/Acetaminophen 5/325 mg Tablet PO PRN (08:24)
[2022-12-22 08:25] LABS: Ref Lab Test Ordered HIV 1 GENOSURE; Reference Lab Name LABCORP
[2022-12-22 08:29] LABS: Ref Lab Test Ordered AFB CULTURE & SMEAR; Reference Lab Name LABCORP
[2022-12-22] MEDS: OLANZapine 5 MG TAB PO SCH (21:28)
[2022-12-22] MEDS ORDERED: Acetaminophen 650 MG Suppository PR PRN (21:57)
[2022-12-22] MEDS ORDERED: Acetaminophen 650 MG/20.3 ML UDCUP PO PRN (22:14)
[2022-12-23] MEDS: Morphine 2 MG/ML VIAL SLOW IVP PRN ×2 (00:07→05:52)
[2022-12-23] MEDS: Sodium Chloride 0.9% 1,000 ML IV SCH ×2 (00:08→14:39)
[2022-12-23] MEDS: Piperacillin/Tazobactam 3.375 GM in Sodium Chloride 0.9% 100 ML IVPB SCH ×2 (05:07→14:39)
[2022-12-23 06:16] LABS: #Lymphocytes 0.4 thou/uL (1.20-3.40); #Monocytes 0.1 thou/uL (0.11-0.59); #Neutrophils 2.4 thou/uL (1.40-6.50); %Basophils 0.2 % (0.0-1.0); %Eosinophils 0.1 % (0.0-10.0); %Lymphocytes 13.7 % (21.0-51.0); %Monocytes 3.3 % (0.0-10.0); %Neutrophils 82.6 % (42.0-75.0); Hemoglobin 8.1 g/dL (12.0-16.0); Mean Corpuscular HGB CONC 35.1 g/dL (32.0-36.0); Mean Corpuscular Hemoglobin 29.9 pg (27.0-31.0); Mean Platelet Volume 9.4 fL (7.4-10.4); Platelet Count 96 10x3/uL (130-400); RBC Distribution Width 16.7 % (11.5-14.5); Red Blood Cell (RBC) Count 2.71 mill/uL (4.20-5.40); White Blood Cell (WBC) Count 2.9 10x3/uL (4.8-10.8)
[2022-12-23 06:25] LABS: ALT (SGPT) 14 U/L (8-55); AST (SGOT) 52 U/L (5-34); Albumin 2.9 g/dL (3.5-5.0); Alkaline Phosphatase 40 U/L (40-110); Anion Gap 10 mmol/L (10-20); BUN (Urea Nitrogen) 6 mg/dL (7.0-18.7); Bilirubin, Total 0.4 mg/dL (0.2-1.2); Calc. Creatinine Clearance 66 mL/min (70-130); Calcium 8.2 mg/dL (7.8-10.44); Carbon Dioxide 21 mmol/L (22-29); Chloride 108 mmol/L (98-107); Estimated GFR 110; Glucose 121 mg/dL (70-105); Protein, Total 5.9 g/dL (6.0-8.3); Sodium 136 mmol/L (136-145)
[2022-12-23] MEDS: Diclofenac 1% 100 GM GEL TP SCH ×5 (08:56→21:27)
[2022-12-23] MEDS: Gabapentin 300 MG CAP PO SCH ×3 (08:56→21:25)
[2022-12-23] MEDS: Escitalopram Oxalate 20 mg Tablet PO SCH (08:56)
[2022-12-23] MEDS: Senokot S 8.6-50 MG TAB PO SCH ×2 (08:57→21:22)
[2022-12-23] MEDS ORDERED: Fluconazole In NaCl,Iso-Osm 400 MG in Premix Bag 1 BAG IVPB SCH (20:30)
[2022-12-23] MEDS: OLANZapine 5 MG TAB PO SCH (21:26)
[2022-12-23] MEDS: Lansoprazole 15 MG/5 ML (BATCHED)UDCUP PO SCH (21:26)
[2022-12-24 06:38] LABS: #Lymphocytes 0.9 thou/uL (1.20-3.40); #Monocytes 0.2 thou/uL (0.11-0.59); #Neutrophils 0.7 thou/uL (1.40-6.50); %Basophils 0.5 % (0.0-1.0); %Eosinophils 1.2 % (0.0-10.0); %Monocytes 12.9 % (0.0-10.0); %Neutrophils 38.5 % (42.0-75.0); Hemoglobin 8.5 g/dL (12.0-16.0); Mean Corpuscular HGB CONC 32.9 g/dL (32.0-36.0); Mean Corpuscular Hemoglobin 28.3 pg (27.0-31.0); Mean Corpuscular Volume 85.9 fl (78.0-98.0); Mean Platelet Volume 9.6 fL (7.4-10.4); Platelet Count 129 10x3/uL (130-400); RBC Distribution Width 16.7 % (11.5-14.5); Red Blood Cell (RBC) Count 3.01 mill/uL (4.20-5.40); White Blood Cell (WBC) Count 1.9 10x3/uL (4.8-10.8)
[2022-12-24 06:59] LABS: Anion Gap 13 mmol/L (10-20); BUN (Urea Nitrogen) 6 mg/dL (7.0-18.7); Calc. Creatinine Clearance 70 mL/min (70-130); Calcium 8.6 mg/dL (7.8-10.44); Carbon Dioxide 19 mmol/L (22-29); Chloride 110 mmol/L (98-107); Estimated GFR 112; Glucose 90 mg/dL (70-105); Potassium 2.9 mmol/L (3.5-5.1); Sodium 139 mmol/L (136-145)
[2022-12-24] MEDS: Morphine 2 MG/ML VIAL SLOW IVP PRN ×4 (07:47→22:45)
[2022-12-24] MEDS: Escitalopram Oxalate 10 mg Tablet PO SCH (08:24)
[2022-12-24] MEDS: Gabapentin 300 MG CAP PO SCH ×3 (08:24→19:58)
[2022-12-24] MEDS: Senokot S 8.6-50 MG TAB PO SCH ×2 (08:24→19:52)
[2022-12-24] MEDS: Diclofenac 1% 100 GM GEL TP SCH ×4 (08:24→19:58)
[2022-12-24] MEDS: Lansoprazole 15 MG/5 ML (BATCHED)UDCUP PO SCH ×2 (08:24→19:58)
[2022-12-24] MEDS ORDERED: Loperamide HCl 2 MG CAP PO PRN (11:04)
[2022-12-24] MEDS ORDERED: Loperamide HCl 2 MG CAP PO SCH (11:15)
[2022-12-24] MEDS: Potassium Bicarbonate/Cit Ac 20 MEQ TAB PO SCH ×2 (12:22→16:29)
[2022-12-24] MEDS: Sodium Chloride 0.9% 1,000 ML IV SCH (13:18)
[2022-12-24] MEDS: OLANZapine 5 MG TAB PO SCH (19:38)
[2022-12-24] MEDS: Fluconazole In NaCl,Iso-Osm 200 MG in Premix Bag 1 BAG IVPB SCH (20:19)
[2022-12-25] MEDS ORDERED: Fluconazole In NaCl,Iso-Osm 200 MG in Premix Bag 1 BAG IVPB SCH (09:00)
[2022-12-25] MEDS: Sodium Chloride 0.9% 1,000 ML IV SCH (09:08)
[2022-12-25] MEDS: Diclofenac 1% 100 GM GEL TP SCH ×4 (09:08→21:37)
[2022-12-25] MEDS: Senokot S 8.6-50 MG TAB PO SCH ×2 (09:09→21:36)
[2022-12-25] MEDS: Escitalopram Oxalate 10 mg Tablet PO SCH (09:09)
[2022-12-25] MEDS: Lansoprazole 15 MG/5 ML (BATCHED)UDCUP PO SCH ×2 (09:09→21:36)
[2022-12-25] MEDS: Gabapentin 300 MG CAP PO SCH ×3 (09:09→21:37)
[2022-12-25 11:13] LABS: Toxoplasma IgG AB 4.1 IU/mL (0.0-7.1); Toxoplasma IgM AB Less than 3.0 AU/mL (0.0-7.9)
[2022-12-25 11:27] LABS: #Monocytes 0.4 thou/uL (0.11-0.59); %Basophils 0.4 % (0.0-1.0); %Eosinophils 1.3 % (0.0-10.0); %Lymphocytes 28.5 % (21.0-51.0); %Monocytes 10.4 % (0.0-10.0); %Neutrophils 59.4 % (42.0-75.0); Hemoglobin 8.3 g/dL (12.0-16.0); Mean Corpuscular HGB CONC 33.3 g/dL (32.0-36.0); Mean Corpuscular Hemoglobin 28.3 pg (27.0-31.0); Mean Platelet Volume 8.9 fL (7.4-10.4); Platelet Count 147 10x3/uL (130-400); RBC Distribution Width 16.5 % (11.5-14.5); Red Blood Cell (RBC) Count 2.94 mill/uL (4.20-5.40); White Blood Cell (WBC) Count 3.4 10x3/uL (4.8-10.8)
[2022-12-25 11:47] LABS: Anion Gap 13 mmol/L (10-20); BUN (Urea Nitrogen) 5 mg/dL (7.0-18.7); Calc. Creatinine Clearance 82 mL/min (70-130); Carbon Dioxide 20 mmol/L (22-29); Chloride 111 mmol/L (98-107); Estimated GFR 116; Glucose 89 mg/dL (70-105); Potassium 3.3 mmol/L (3.5-5.1); Sodium 141 mmol/L (136-145)
[2022-12-25] MEDS: Cefepime 2 GM in Sodium Chloride 0.9% 100 ML IVPB SCH (15:03)
[2022-12-25] MEDS: Morphine 2 MG/ML VIAL SLOW IVP PRN (15:08)
[2022-12-25] MEDS: OLANZapine 5 MG TAB PO SCH (21:36)
[2022-12-25] MEDS: Fluconazole In NaCl,Iso-Osm 200 MG in Premix Bag 1 BAG IVPB SCH (22:45)
[2022-12-26] MEDS: Cefepime 2 GM in Sodium Chloride 0.9% 100 ML IVPB SCH ×2 (02:58→14:53)
[2022-12-26] MEDS: Sodium Chloride 0.9% 1,000 ML IV SCH ×2 (02:58→18:16)
[2022-12-26] MEDS: Morphine 2 MG/ML VIAL SLOW IVP PRN ×4 (03:18→23:02)
[2022-12-26] MEDS: Diclofenac 1% 100 GM GEL TP SCH ×4 (09:32→19:50)
[2022-12-26] MEDS: Escitalopram Oxalate 10 mg Tablet PO SCH (09:32)
[2022-12-26] MEDS: Lansoprazole 15 MG/5 ML (BATCHED)UDCUP PO SCH ×2 (09:32→19:51)
[2022-12-26] MEDS: Gabapentin 300 MG CAP PO SCH ×3 (09:32→19:50)
[2022-12-26] MEDS: Senokot S 8.6-50 MG TAB PO SCH ×2 (09:33→19:51)
[2022-12-26] MEDS: Fluconazole In NaCl,Iso-Osm 200 MG in Premix Bag 1 BAG IVPB SCH (19:51)
[2022-12-26] MEDS: OLANZapine 5 MG TAB PO SCH (19:51)
[2022-12-26 22:03] LABS: Hemoglobin 8.1 g/dL (12.0-16.0); Mean Corpuscular HGB CONC 33.9 g/dL (32.0-36.0); Mean Corpuscular Hemoglobin 28.8 pg (27.0-31.0); Mean Corpuscular Volume 84.8 fl (78.0-98.0); Platelet Count 161 10x3/uL (130-400); RBC Distribution Width 16.6 % (11.5-14.5); White Blood Cell (WBC) Count 3.6 10x3/uL (4.8-10.8)
[2022-12-26 22:19] LABS: Anion Gap 12 mmol/L (10-20); BUN (Urea Nitrogen) Less than 4 mg/dL (7.0-18.7); Calc. Creatinine Clearance 79 mL/min (70-130); Calcium 8.8 mg/dL (7.8-10.44); Carbon Dioxide 22 mmol/L (22-29); Chloride 109 mmol/L (98-107); Estimated GFR 115; Glucose 96 mg/dL (70-105); Potassium 2.8 mmol/L (3.5-5.1); Sodium 140 mmol/L (136-145)
[2022-12-26 22:47] LABS: Anisocytosis SLIGHT = 6-15 cells (100X) (0-5/hpf); Band 1 % (5-11); Lymphocytes 15 % (21-51); MDiff Complete? YES; Monocytes 15 % (0-10); Neutrophil 68 % (42-75); Platelet Morphology Comment Appears Adequate; Reactive Lymphocytes 1 % (0-10); Tear Drops SLIGHT = 2-5 cells (100X) (0-1/hpf)
[2022-12-26] MEDS ORDERED: Ondansetron ODT 4 MG TAB PO PRN (23:26)
[2022-12-27] MEDS: Ondansetron PF 4 MG/2 ML Vial IVP PRN ×2 (00:26→19:37)
[2022-12-27] MEDS: Cefepime 2 GM in Sodium Chloride 0.9% 100 ML IVPB SCH ×2 (03:30→14:46)
[2022-12-27 06:33] LABS: Mean Corpuscular HGB CONC 34.1 g/dL (32.0-36.0); Mean Corpuscular Volume 85.1 fl (78.0-98.0); Mean Platelet Volume 8.6 fL (7.4-10.4); Platelet Count 156 10x3/uL (130-400); RBC Distribution Width 17.1 % (11.5-14.5); Red Blood Cell (RBC) Count 2.76 mill/uL (4.20-5.40); White Blood Cell (WBC) Count 3.2 10x3/uL (4.8-10.8)
[2022-12-27 06:50] LABS: Anion Gap 12 mmol/L (10-20); BUN (Urea Nitrogen) 4 mg/dL (7.0-18.7); Calc. Creatinine Clearance 82 mL/min (70-130); Calcium 8.8 mg/dL (7.8-10.44); Carbon Dioxide 22 mmol/L (22-29); Chloride 109 mmol/L (98-107); Estimated GFR 116; Glucose 101 mg/dL (70-105); Potassium 2.9 mmol/L (3.5-5.1); Sodium 140 mmol/L (136-145)
[2022-12-27 06:51] LABS: Band 4 % (5-11); Hypochromia SLIGHT = 6-15 cells (100X) (0-5/hpf); Lymphocytes 18 % (21-51); MDiff Complete? YES; Monocytes 7 % (0-10); Neutrophil 68 % (42-75); Platelet Morphology Comment Appears Adequate; Reactive Lymphocytes 3 % (0-10)
[2022-12-27 07:19] LABS: CMV DNA-PCR Test Positive < 200 IU/mL (Negative)
[2022-12-27] MEDS: Escitalopram Oxalate 10 mg Tablet PO SCH (10:42)
[2022-12-27] MEDS: Lansoprazole 15 MG/5 ML (BATCHED)UDCUP PO SCH ×2 (10:42→19:51)
[2022-12-27] MEDS: Diclofenac 1% 100 GM GEL TP SCH ×4 (10:42→19:51)
[2022-12-27] MEDS: Gabapentin 300 MG CAP PO SCH ×3 (10:42→19:51)
[2022-12-27] MEDS: Senokot S 8.6-50 MG TAB PO SCH ×2 (10:43→19:50)
[2022-12-27] MEDS: Morphine 2 MG/ML VIAL SLOW IVP PRN ×2 (14:48→19:32)
[2022-12-27] MEDS: Sodium Chloride 0.9% 1,000 ML IV SCH (18:22)
[2022-12-27] MEDS: OLANZapine 5 MG TAB PO SCH (19:50)
[2022-12-27] MEDS: Fluconazole In NaCl,Iso-Osm 200 MG in Premix Bag 1 BAG IVPB SCH (21:32)
[2022-12-28] MEDS: Cefepime 1 GM in Sodium Chloride 0.9% 100 ML IVPB SCH ×2 (02:37→15:00)
[2022-12-28] MEDS: Diclofenac 1% 100 GM GEL TP SCH ×4 (08:17→19:57)
[2022-12-28] MEDS: Gabapentin 300 MG CAP PO SCH ×3 (08:18→19:58)
[2022-12-28] MEDS: Senokot S 8.6-50 MG TAB PO SCH ×2 (08:18→19:58)
[2022-12-28] MEDS: Lansoprazole 15 MG/5 ML (BATCHED)UDCUP PO SCH ×2 (08:18→19:58)
[2022-12-28] MEDS: Escitalopram Oxalate 10 mg Tablet PO SCH (08:18)
[2022-12-28 12:10] LABS: #Lymphocytes 0.9 thou/uL (1.20-3.40); #Monocytes 0.5 thou/uL (0.11-0.59); #Neutrophils 2.1 thou/uL (1.40-6.50); %Eosinophils 1.2 % (0.0-10.0); %Monocytes 13.7 % (0.0-10.0); %Neutrophils 59.1 % (42.0-75.0); Hemoglobin 8.6 g/dL (12.0-16.0); Mean Corpuscular HGB CONC 33.3 g/dL (32.0-36.0); Mean Corpuscular Hemoglobin 28.5 pg (27.0-31.0); Mean Corpuscular Volume 85.5 fl (78.0-98.0); Mean Platelet Volume 8.5 fL (7.4-10.4); Platelet Count 206 10x3/uL (130-400); RBC Distribution Width 17.1 % (11.5-14.5); Red Blood Cell (RBC) Count 3.02 mill/uL (4.20-5.40); White Blood Cell (WBC) Count 3.6 10x3/uL (4.8-10.8)
[2022-12-28 12:26] LABS: Anion Gap 11 mmol/L (10-20); BUN (Urea Nitrogen) Less than 4 mg/dL (7.0-18.7); Calc. Creatinine Clearance 84 mL/min (70-130); Calcium 8.8 mg/dL (7.8-10.44); Carbon Dioxide 21 mmol/L (22-29); Chloride 110 mmol/L (98-107); Estimated GFR 117; Glucose 93 mg/dL (70-105); Sodium 139 mmol/L (136-145)
[2022-12-28 12:28] LABS: Potassium 2.6 mmol/L (3.5-5.1)
[2022-12-28] MEDS: Potassium Chloride 20 MEQ in Premix Bag 1 BAG IVPB SCH ×3 (13:09→19:57)
[2022-12-28] MEDS ORDERED: Vancomycin HCl 750 MG in Sodium Chloride 0.9% 250 ML 250 ML IVPB SCH (14:00)
[2022-12-28] MEDS: Fluconazole In NaCl,Iso-Osm 200 MG in Premix Bag 1 BAG IVPB SCH (19:58)
[2022-12-28] MEDS: OLANZapine 5 MG TAB PO SCH (19:58)
[2022-12-29] MEDS: Cefepime 1 GM in Sodium Chloride 0.9% 100 ML IVPB SCH ×2 (02:06→14:36)
[2022-12-29] MEDS: Vancomycin HCl 500 MG in Sodium Chloride 0.9% 100 ML IVPB SCH ×2 (05:09→17:41)
[2022-12-29] MEDS: Escitalopram Oxalate 10 mg Tablet PO SCH (08:08)
[2022-12-29] MEDS: Diclofenac 1% 100 GM GEL TP SCH ×4 (08:08→19:39)
[2022-12-29] MEDS: Gabapentin 300 MG CAP PO SCH ×3 (08:09→19:39)
[2022-12-29] MEDS: Lansoprazole 15 MG/5 ML (BATCHED)UDCUP PO SCH ×2 (08:09→19:40)
[2022-12-29] MEDS: Senokot S 8.6-50 MG TAB PO SCH ×2 (08:09→19:40)
[2022-12-29] MEDS ORDERED: Polyethylene Glycol 3350 17 GM Packet PO PRN (08:53)
[2022-12-29] MEDS ORDERED: Polyethylene Glycol 3350 17 GM Packet PO SCH (09:00)
[2022-12-29] MEDS: Fluconazole In NaCl,Iso-Osm 200 MG in Premix Bag 1 BAG IVPB SCH (19:39)
[2022-12-29] MEDS: OLANZapine 5 MG TAB PO SCH (19:40)
[2022-12-30] MEDS: Cefepime 1 GM in Sodium Chloride 0.9% 100 ML IVPB SCH ×2 (00:22→15:38)
[2022-12-30] MEDS: Vancomycin HCl 500 MG in Sodium Chloride 0.9% 100 ML IVPB SCH ×2 (04:29→18:49)
[2022-12-30] MEDS: Lansoprazole 15 MG/5 ML (BATCHED)UDCUP PO SCH (09:33)
[2022-12-30] MEDS: Diclofenac 1% 100 GM GEL TP SCH (09:33)
[2022-12-30] MEDS: Gabapentin 300 MG CAP PO SCH (09:33)
[2022-12-30] MEDS: Escitalopram Oxalate 10 mg Tablet PO SCH (09:33)
[2022-12-30] MEDS: Senokot S 8.6-50 MG TAB PO SCH ×2 (09:34→23:40)
[2022-12-30] MEDS: Ibuprofen 100 MG/5 ML UDCUP PO PRN (13:40)
[2022-12-30 16:57] LABS: Anion Gap 11 mmol/L (10-20); BUN (Urea Nitrogen) 5 mg/dL (7.0-18.7); Calc. Creatinine Clearance 71 mL/min (70-130); Calcium 9.3 mg/dL (7.8-10.44); Carbon Dioxide 23 mmol/L (22-29); Chloride 106 mmol/L (98-107); Estimated GFR 112; Glucose 104 mg/dL (70-105); Potassium 3.4 mmol/L (3.5-5.1); Sodium 137 mmol/L (136-145)
[2022-12-30 16:59] LABS: Hemoglobin 9.4 g/dL (12.0-16.0); Lymphocytes 20 % (21-51); MDiff Complete? YES; Mean Corpuscular HGB CONC 34.8 g/dL (32.0-36.0); Mean Corpuscular Hemoglobin 30.1 pg (27.0-31.0); Mean Corpuscular Volume 86.5 fl (78.0-98.0); Mean Platelet Volume 8.6 fL (7.4-10.4); Monocytes 15 % (0-10); Neutrophil 57 % (42-75); Ovalocytes SLIGHT = 2-5 cells (100X) (0-1/hpf); Platelet Count 223 10x3/uL (130-400); Platelet Morphology Comment Appears Adequate; Polychromasia SLIGHT = 2-3 cells (100X) (0-2/hpf); RBC Distribution Width 17.2 % (11.5-14.5); Reactive Lymphocytes 7 % (0-10); Red Blood Cell (RBC) Count 3.14 mill/uL (4.20-5.40); White Blood Cell (WBC) Count 3.5 10x3/uL (4.8-10.8)
[2022-12-30] MEDS ORDERED: diphenhydrAMINE 50 MG/ML VIAL IVP SCH (20:00)
[2022-12-30] MEDS: Fluconazole In NaCl,Iso-Osm 200 MG in Premix Bag 1 BAG IVPB SCH (23:40)
[2022-12-30] MEDS: OLANZapine 5 MG TAB PO SCH (23:40)
[2022-12-31] MEDS: Ibuprofen 100 MG/5 ML UDCUP PO PRN (01:53)
[2022-12-31] MEDS: Cefepime 1 GM in Sodium Chloride 0.9% 100 ML IVPB SCH ×2 (03:04→15:28)
[2022-12-31] MEDS: diphenhydrAMINE 50 MG/ML VIAL IVP SCH ×2 (05:17→17:15)
[2022-12-31] MEDS: Vancomycin HCl 500 MG in Sodium Chloride 0.9% 100 ML IVPB SCH ×2 (05:19→17:38)
[2022-12-31] MEDS: Senokot S 8.6-50 MG TAB PO SCH ×2 (07:54→20:52)
[2022-12-31] MEDS: Fluconazole In NaCl,Iso-Osm 200 MG in Premix Bag 1 BAG IVPB SCH (20:52)
[2022-12-31] MEDS: OLANZapine 5 MG TAB PO SCH (20:52)
[2023-01-01] MEDS: Cefepime 1 GM in Sodium Chloride 0.9% 100 ML IVPB SCH ×2 (03:37→15:11)
[2023-01-01] MEDS: diphenhydrAMINE 50 MG/ML VIAL IVP SCH (05:26)
[2023-01-01] MEDS: Vancomycin HCl 500 MG in Sodium Chloride 0.9% 100 ML IVPB SCH ×2 (05:27→16:48)
[2023-01-01] MEDS: Senokot S 8.6-50 MG TAB PO SCH ×2 (07:26→21:06)
[2023-01-01] MEDS: Ibuprofen 100 MG/5 ML UDCUP PO PRN (21:04)
[2023-01-01] MEDS: OLANZapine 5 MG TAB PO SCH (21:05)
[2023-01-01] MEDS: Fluconazole In NaCl,Iso-Osm 200 MG in Premix Bag 1 BAG IVPB SCH (21:05)
[2023-01-02] MEDS: Cefepime 1 GM in Sodium Chloride 0.9% 100 ML IVPB SCH ×2 (03:24→16:01)
[2023-01-02] MEDS: Vancomycin HCl 500 MG in Sodium Chloride 0.9% 100 ML IVPB SCH (05:27)
[2023-01-02] MEDS: Senokot S 8.6-50 MG TAB PO SCH (09:26)
[2023-01-02 12:06] VITALS: BP 107/72; TEMP 98.1
== END 2023-01-02 17:09 | disposition home or self-care (01) | DRG 539 ==
LOC: ERS 10:52 → T4-B 15:25
PROVIDERS: ADMIT Internal Medicine; ATTEND Internal Medicine
PROC: 02HV33Z Insertion of Infusion Device into Superior Vena Cava, Percutaneous Approach (ICD-10-PCS; principal; 2022-12-12)
PROC: B5181ZA Fluoroscopy of Superior Vena Cava using Low Osmolar Contrast, Guidance (ICD-10-PCS; 2022-12-12)
PROC: B548ZZA Ultrasonography of Superior Vena Cava, Guidance (ICD-10-PCS; 2022-12-12)
DX: M46.22 Osteomyelitis of vertebra, cervical region (principal); Z66 Do not resuscitate; Z20.822 Contact with and (suspected) exposure to COVID-19; Z51.5 Encounter for palliative care; E43 Unspecified severe protein-calorie malnutrition; G06.2 Extradural and subdural abscess, unspecified; R64 Cachexia; Z68.1 Body mass index [BMI] 19.9 or less, adult; B20 Human immunodeficiency virus [HIV] disease; B37.0 Candidal stomatitis; F31.9 Bipolar disorder, unspecified; F41.9 Anxiety disorder, unspecified; F17.210 Nicotine dependence, cigarettes, uncomplicated; M48.02 Spinal stenosis, cervical region; M46.42 Discitis, unspecified, cervical region; M51.27 Other intervertebral disc displacement, lumbosacral region; M53.2X2 Spinal instabilities, cervical region; R62.7 Adult failure to thrive; R11.2 Nausea with vomiting, unspecified; R10.9 Unspecified abdominal pain; R50.2 Drug induced fever; T36.0X5A Adverse effect of penicillins, initial encounter; D69.6 Thrombocytopenia, unspecified; K22.2 Esophageal obstruction; R13.10 Dysphagia, unspecified; Z79.899 Other long term (current) drug therapy; Z88.8 Allergy status to other drugs, medicaments and biological substances; Z88.5 Allergy status to narcotic agent; Z98.890 Other specified postprocedural states; Z59.01 Sheltered homelessness; Z91.14 Patient's other noncompliance with medication regimen; Z98.51 Tubal ligation status
CPT/HCPCS: 36415; 36569; 70491; 71046; 72156; 72157; 72158; 76705; 80048; 80053; 80202; 82550; 82565; 83605; 83735; 84520; 85025; 85652; 86140; 86361; 86777; 86778; 87040; 87324; 87449; 87497; 87536; 87811; 87899; 93005; 93010; 96365; 96375; A9579; C1751; J0692; J0878; J1200; J1450; J2270; J2272; J2405; J2543; J3370; J3370-JW; J3480; J3490; J7030; J7050; Q9967; U0003; U0005

== ENCOUNTER 2023-03-05 02:21 | Emergency (ER) | payer OTHER, SELFPAY | END 2023-03-05 03:46 | disposition left against medical advice (07) | LOC: ERS 02:21 | DX: R53.81 Other malaise (principal); R69 Illness, unspecified; F17.210 Nicotine dependence, cigarettes, uncomplicated | CPT/HCPCS: 71045 ==

== ENCOUNTER 2023-03-06 20:32 | Emergency (ER) | payer OTHER | END 2023-03-06 21:32 | LOC: ERS 20:32 | DX: Z02.89 Encounter for other administrative examinations (principal); B20 Human immunodeficiency virus [HIV] disease; F17.210 Nicotine dependence, cigarettes, uncomplicated | CPT/HCPCS: 99282 ==

== ENCOUNTER 2023-07-14 22:08 | Emergency (ER) | payer MEDICARE, MEDICAID ==
[2023-07-14 23:25] LABS: Hematocrit 31.2 % (36.0-47.0); Hemoglobin 10.4 g/dL (12.0-16.0); Mean Corpuscular HGB CONC 33.3 g/dL (32.0-36.0); Mean Corpuscular Hemoglobin 30.3 pg (27.0-31.0); Platelet Count 141 10x3/uL (130-400); RBC Distribution Width 12.8 % (11.5-14.5); Red Blood Cell (RBC) Count 3.43 mill/uL (4.20-5.40); White Blood Cell (WBC) Count 1.7 10x3/uL (4.8-10.8)
[2023-07-14 23:28] LABS: Delete Auto Diff?? YES; Manual Diff?? YES
[2023-07-14 23:49] LABS: ALT (SGPT) 42 U/L (8-55); AST (SGOT) 51 U/L (5-34); Albumin 4.1 g/dL (3.5-5.0); Alkaline Phosphatase 67 U/L (40-110); Anion Gap 14 mmol/L (10-20); BUN (Urea Nitrogen) 18 mg/dL (7.0-18.7); Bilirubin, Total 0.5 mg/dL (0.2-1.2); Calc. Creatinine Clearance 0 mL/min (70-130); Calcium 10.2 mg/dL (7.8-10.44); Carbon Dioxide 26 mmol/L (22-29); CellaVision Operator ID LAB.JMM; Chloride 104 mmol/L (98-107); Eosinophils 1 % (0-10); Estimated GFR 94; Globulin 4.3 g/dL (2.4-3.5); Glucose 95 mg/dL (70-105); Lymphocytes 18 % (21-51); Monocytes 18 % (0-10); Neutrophil 64 % (42-75); Nucleated RBC (Manual Ct) 1 % (0); Platelet Adequacy Comment Platelets Normal; Potassium 3.9 mmol/L (3.5-5.1); Protein, Total 8.4 g/dL (6.0-8.3); RBC Morphology Within Normal Limits; Smudge Cells 60.8 %; Sodium 140 mmol/L (136-145); Total Cell Count 97
[2023-07-15 01:58] LABS: SARS-CoV-2 NAA Rapid Test DETECTED (NotDetected)
== END 2023-07-15 02:15 ==
LOC: ERS 22:08
DX: U07.1 COVID-19 (principal); B20 Human immunodeficiency virus [HIV] disease; F17.210 Nicotine dependence, cigarettes, uncomplicated
CPT/HCPCS: 0240U; 70450; 71045; 73502; 80053; 83605; 85025; 93005; 36415

== ENCOUNTER 2023-09-29 20:45 | Emergency (ER) | payer MEDICAID, MEDICARE, OTHER ==
[~2023-09-29 20:45] MED LIST changes: -Iopamidol-370 76% 500 ML 1 ML ONE; +Iopamidol-370 76% 500 ML MDV (1 ML CHARGE) ONE
[2023-09-29 21:42] LABS: #Monocytes 0.3 thou/uL (0.11-0.59); #Neutrophils 2.6 thou/uL (1.40-6.50); %Eosinophils 0.7 % (0.0-10.0); %Lymphocytes 27.8 % (21.0-51.0); %Monocytes 6.2 % (0.0-10.0); %Neutrophils 64.1 % (42.0-75.0); Hematocrit 34.8 % (36.0-47.0); Hemoglobin 11.9 g/dL (12.0-16.0); Mean Corpuscular HGB CONC 34.2 g/dL (32.0-36.0); Mean Corpuscular Volume 90.6 fl (78.0-98.0); Mean Platelet Volume 9.7 fL (7.4-10.4); Platelet Count 173 10x3/uL (130-400); RBC Distribution Width 13.4 % (11.5-14.5); Red Blood Cell (RBC) Count 3.84 mill/uL (4.20-5.40)
[2023-09-29 21:51] LABS: BHCG - Serum Negative (NEGATIVE); Pregs Control Background? CLEAR/WHITE (CLR/WHITE); Pregs Control Bar Appear? YES (CONTROL BAR)
[2023-09-29 22:08] LABS: ALT (SGPT) 8 U/L (8-55); AST (SGOT) 22 U/L (5-34); Albumin 4.9 g/dL (3.5-5.0); Alkaline Phosphatase 73 U/L (40-110); Anion Gap 12 mmol/L (10-20); BUN (Urea Nitrogen) 18 mg/dL (7.0-18.7); Bilirubin, Total 0.4 mg/dL (0.2-1.2); Calc. Creatinine Clearance 0 mL/min (70-130); Calcium 10.3 mg/dL (7.8-10.44); Carbon Dioxide 27 mmol/L (22-29); Chloride 100 mmol/L (98-107); Estimated GFR 86; Globulin 3.8 g/dL (2.4-3.5); Glucose 92 mg/dL (70-105); Potassium 4.1 mmol/L (3.5-5.1); Protein, Total 8.7 g/dL (6.0-8.3); Sodium 135 mmol/L (136-145)
[2023-09-29] MEDS ORDERED: Ketorolac Tromethamine 30 MG/ML VIAL ONE (22:49)
== END 2023-09-30 00:17 ==
LOC: ERS 20:45
DX: R10.31 Right lower quadrant pain (principal); B20 Human immunodeficiency virus [HIV] disease; F17.210 Nicotine dependence, cigarettes, uncomplicated
CPT/HCPCS: 36415; 74177; 80053; 84703; 85025; 96374; J1885; Q9967